=== PATIENT | male | born 1960 | race Caucasian/White ===

== ENCOUNTER 2018-01-12 16:54 | Inpatient (IN) | payer OTHER ==
[~2018-01-12] VITALS: Ht 180.3 cm; Wt 120.7 kg
[~2018-01-12 16:54] MED LIST: RT-ALBUTEROL/IPRATROPIUM 3 ML (DUONEB) VIAL INH PRN
[2018-01-12] MEDS ORDERED: diphenhydrAMINE 25 MG TAB (BENADRYL) PO ONE (20:13)
[2018-01-12] MEDS: guaiFENesin (MUCINEX) 600 MG TAB PO SCH (20:16)
[2018-01-12] MEDS: diphenhydrAMINE 25 MG TAB (BENADRYL) PO PRN (20:16)
[2018-01-12] MEDS ORDERED: ATORVASTATIN 40 MG (LIPITOR) TABLET PO SCH (21:00)
[2018-01-12] MEDS ORDERED: ATORVASTATIN 80 MG (LIPITOR) TABLET PO SCH (21:00)
--- NOTE | 2018-01-12 21:11 | HISTORY AND PHYSICAL ---
DATE OF SERVICE: 01/12/2018 CHIEF COMPLAINT: Difficulty with walking. HISTORY OF PRESENT ILLNESS: The patient is a 58-year-old male who has been independent and living in [place], [place], working at a [employer], who had severe hypertensive crisis and was admitted to [facility]. Imaging studies revealed an acute ischemic stroke involving the left occipital lobe resulting in decreased coordination on the right and impaired vision on the right. The patient was also noted to have elevated glucometer readings, but hemoglobin A1c was approximately 6.7. The patient was also noted to have a small sterling aneurysm, which the patient will follow up as well as non-small cell lung cancer, will follow up with the medical oncology on an outpatient basis. Also, a right renal mass, which could not be further evaluated as he did not tolerate the MRI due to claustrophobia. He will have a followup of this with an open MRI on an outpatient basis. He is on a Nicoderm patch for smoking cessation. Currently, he has fallen at the referring facility with no apparent injury slid off the toilet. He requires assistance for his ADLs and mobility skills. He complains of a pruritic rash over the abdomen.hE IS MIN ASSIST FOR GAIT AND TRANSFERS WITH A WALKER. hE REQUIRES ASSITANCE FOR eATING AND MAX ASSIST FOR LOWER BODY DRESSING AND BATHING PAST MEDICAL HISTORY: Hypertension, tobaccoism. PAST SURGICAL HISTORY: Denies any prior joint or spinal surgery. ALLERGIES: LEVAQUIN, REPORTS A RASH WITH IV LEVAQUIN, WHICH MAY HAVE BEEN RELATED TO THE IV SITE HE IS UNCERTAIN. FAMILY HISTORY: Colon cancer in a brother. SOCIAL HISTORY: He presents to IRU with his girlfriend. He has several children spread to the region. REVIEW OF SYSTEMS: Significant for falls, decreased coordination vision on the right, pruritic rash over the abdomen. MEDICATIONS: ASA 81 mg p.o. daily, Lipitor 80 mg p.o. at bedtime, Robitussin 10 mL p.o. q.4 hours as needed for cough, hydrochlorothiazide 12.5 mg p.o. daily, DuoNeb treatments q.6 hours p.r.n. shortness of breath, losartan 100 mg p.o. daily, nicotine patch 21 mg daily. PHYSICAL EXAMINATION: GENERAL: Significant for a fairly large man, appearing his stated age, alert and oriented, in no acute distress. His BMI is 39.46. He is 275 pounds, 5 feet 10 inches. He does complain of some constipation and his abdomen is mildly distended. VITAL SIGNS: Blood pressure 144/78, pulse is 71. He is afebrile. Respirations 16. HEENT: He has decreased vision to the right. Speech, he has some word finding difficulty. No dysarthria noted. No oral lesion is noted. Hearing appears intact. NECK: Supple without mass. HEART: Regular rhythm. LUNGS: Clear. ABDOMEN: Soft, nontender. Bowel sounds present. The abdomen is somewhat distended. EXTREMITIES: No lower leg edema, no calf tenderness. MUSCULOSKELETAL: The patient has functional active range of motion in all 4 extremities. NEUROLOGIC: Strength is 4+/5lEFT uPPER LIMB rt uPPER LIMB 3+/5. Sensation is DIMINISHED to touchON THE RIGHT. He has some word finding difficulty. He has right-sided visual loss. He has decreased coordination on the right and impaired standing balance.sTRENGTH rT hIPFLEX 3+/ 5 lEFT LOWER lIMB 4/5. IMPRESSION: 1. Left occipital stroke with resulting visual field deficit on the right as well as discoordination and history of recent falls. 2. Non-small cell lung cancer. To have followup on an outpatient basis. 2. Sterling aneurysm. To have followup as an outpatient. 3. Renal mass on the right. Will followup on an outpatient basis. 4. Tobaccoism, currently abstaining. 5. Hypertension, controlled with medication. 6. Constipation. Adjust medications as needed for constipation. 7. Abdominal rash. Treat with Benadryl and topical cream as necessary. PLAN: The patient will have a comprehensive program of inpatient rehabilitation WITH goal of maximizing level of functional INdependence prior to discharge home with his girlfriend. The patient will have PT, OT 90 minutes per day each discipline, 5 days a week for 2 weeks with the above goals in mind. Please see post-admission physician evaluation, which is separate document for details of plan of care. Speech therapy do cognitive speech and swallow assessment and treat as indicated. Rehabilitation nursing assist with bowel, bladder, skin care, medication administration. business services sales agent assist with discharge planning, community reentry. Monitor blood pressure and adjust medications as needed.cHECK aDMISSION LABS. ESTIMATED LENGTH OF STAY: THREE weeks. PROGNOSIS: Rehab prognosis appears good for goal of discharging home with his significant other AT THE Modified independent to supervision LEVEL for ADLs and mobility skills. DIET: Regular. CODE STATUS: Full code. Job ID: [id number] DocumentID: [id number] Dictated Date: 01/12/2018 20:23:43 Regulatory Scientist Date: 01/12/2018 21:10:21 Dictated By: SYDNEE GUAN MD MTDD
[2018-01-13 05:07] VITALS: BP 175/85
--- NOTE | 2018-01-13 08:16 | Physical Therapy Evaluation ---
PT Evaluation-General Medical Diagnosis Admission Date Jan 12, 2018 at 19:48 Medical Diagnosis: CVA Onset Date: Jan 04, 2018 Therapy Diagnosis Therapy Diagnosis: difficulty walking Height/Weight Height (Feet): 5 Height (Inches): 11.00 Weight (Pounds): 263 Weight (Ounces): 4.8 Precautions Precautions/Isolations: Fall Prevention, Standard Precautions Weight Bear Status Right Lower Extremity: Right Full Weight Bearing Left Lower Extremity: Left Full Weight Bearing Referral Physician: Raji Reason for Referral: Evaluation/Treatment Social History Home: Single Level Current Living Status: Spouse Entry Into Home: Stairs Without Railing PT Steps Into Home: 2 PT Steps Inside Home: 0 Prior/Core FIM Prior Level of Function Functional [place] Measure 0=Not Assessed/NA 4=Minimal Assistance 1=Total Assistance 5=Supervision or Setup 2=Maximal Assistance 6=Modified [place] 3=Moderate Assistance 7=Complete IndependenceIRFPAI Quality Coding Scale 6 Independent with activity with or without an assistive device 5 Patient requires set up or clean up by helper. Patient completes activity by themselves 4 Supervision or touching assist (CGA). [place] provide cues , steadying assist 3 The helper provides less than half the effort to complete the activity 2 The helper provides more than half the effort to complete the activity 1 Dependent. The helper does all the effort to complete an activity 7 Patient refused to complete or attempt activity 9 The patient did not perform the activity before the current illness or injury 88 Not attempted due to Medical conditions or safety concerns Bed Mobility: 7 Transfers (B,C,W/C) (FIM): 7 Gait: 7 Stairs: 7 PT Evaluation-Current Subjective States that he is doing okay today and ready to start therapy. Pain Numeric Pain Scale: 0-No Pain Objective Patient Orientation: Person, Place, Time ROM/Strength ROM Upper Extremities WFL ROM Lower Extremities WFL Strenght Lower Extremities 5/5 on (L) ; 3+/5 throughout (R) hip, 4/5 (R) knee and ankle. Patient has difficulty with dorsiflexion if knee is extended Neuromuscular (Tone, Coordination, Reflexes) poor coordination in (R) UE and LE Sensory Vision: Neglect Right Hearing: Functional Hand Dominance: Right Sensation Right Upper Extremit: Impaired Sensation Left Upper Extremity: Intact Sensation Right Lower Extremit: Impaired Sensation Left Lower Extremity: Intact Transfers Functional [place] Measure 0=Not Assessed/NA 4=Minimal Assistance 1=Total Assistance 5=Supervision or Setup 2=Maximal Assistance 6=Modified [place] 3=Moderate Assistance 7=Complete IndependenceIRFPAI Quality Coding Scale 6 Independent with activity with or without an assistive device 5 Patient requires set up or clean up by helper. Patient completes activity by themselves 4 Supervision or touching assist (CGA). [place] provide cues , steadying assist 3 The helper provides less than half the effort to complete the activity 2 The helper provides more than half the effort to complete the activity 1 Dependent. The helper does all the effort to complete an activity 7 Patient refused to complete or attempt activity 9 The patient did not perform the activity before the current illness or injury 88 Not attempted due to Medical conditions or safety concerns Transfers (B, C, W/C) (FIM): 4 Scootin Rollin Roll Left to Right (QC): 4 Supine to/from Sit: 4 Sit to/from Stand: 4 Sit to Lying (QC): 4 Lying to Sitting/Side of Bed(Q: 5 Sit to Stand (QC): 4 Chair/Cnk-cx-Jusib Xfer(QC): 4 Car Transfer (QC): 88 Gait Does the Patient Walk?: Yes Mode of Locomotion: Both Anticipated Mode of Locomotion: Walk Distance (FIM): 1=up to 49 ft Walk 10 feet (QC): 4 Walk 50 ft with 2 Turns(QC): 88 Walk 150 ft (QC): 88 Walking 10ft/uneven surface-QC: 88 Distance: 30' Gait Level of Assist: 4 Gait Persons Needed: 1 Gait Assistive Device: Handheld Assist Wheelchair Training Does the Pt Use a Wheelchair?: No Wheelchair (FIM): 2 Wheelchair Distance (FIM): 1=up to 49 ft Distance: 5' Wheelchair Level of Assist: 4 Wheel 50 ft with 2 turns (QC): 1 Wheel 150 ft (QC): 1 Stairs Stairs (FIM): 3 #of Steps: 4 Level of Assist: 3 1 Step (curb) (QC): 3 4 Steps (QC): 3 12 Steps (QC): 88 Balance Sitting Static: Good Sitting Dynamic: Good Standing Static: Poor Standing Dynamic: Poor Picking up an Object (QC): 2 Assessment/Needs 58 y.o. male s/p CVA. The patient has a problem list of decreased strength, coordination limitations, gait limitations, balance limitations, and functional mobility which shows a need for skilled therapy to return to PLOF. Rehab Potential: Good PT Short Term Goals Short Term Goals Time Frame: Jan 20, 2018 Transfers (B,C,W/C) (FIM): 5 Gait (FIM): 5 Distance (FIM): 9=529-19 ft Gait Distance Comment: 100' Gait Level of Assist: 5 Gait Assistive Device: Handheld Assist PT Chcf Goals Rack Worker Goals PT Chcf Goals Time Frame: Feb 03, 2018 Transfers (B,C,W/C) (FIM): 7 Sit to Lying (QC): 6 Lying-Sitting on Side/Bed(QC): 6 Sit to Stand (QC): 6 Rollin Roll Left to Right (QC): 6 Chair/Jos-co-Yisar Xfer(QC): 6 Car Transfer (QC): 6 Does the Patient Walk: Yes Gait (FIM): 6 Gait distance (FIM): 3=150 ft Distance: 500' Walk 10 feet (QC): 6 Walk 10ft-Uneven Surface(QC): 5 Walk 50ft with 2 Turns (QC): 6 Walk 150 ft (QC): 6 Gait Level of Assist: 6 Gait Assistive Device: None, Cane Small Base Quad Stairs (FIM): 7 # of Steps: 12 1 Step (curb) (QC): 6 4 Steps (QC): 6 12 Steps (QC): 6 Stairs Level Of Assist: 7 Picking up an Object (QC): 6 PT Plan Problem List Problem List: Activity Tolerance, Functional Strength, Safety, Balance, Gait, Transfer, Bed Mobility Treatment/Plan Treatment Plan: Continue Plan of Care Treatment Plan: Bed Mobility, Functional Activity Araceli, Functional Strength, Group Therapy, Gait, Safety, Therapeutic Exercise, Transfers Treatment Duration: Feb 03, 2018 Frequency: 6 times per week Estimated Hrs Per Day: 1.5 hours per day Patient and/or Family Agrees t: Yes Safety Risks/Education Patient Education: Gait Training, Transfer Techniques, Steps, Safety Issues Teaching Recipient: Patient Teaching Methods: Discussion Discharge Recommendations Plan home Therapy D/C Recommendations: Physical Therapy Outpatient Time/GCodes Time In: 0750 Time Out: 0920 Total Billed Treatment Time: 90 Total Billed Treatment 1, Evaluation low complexity x 30', 15' ther-ex, 45' FA G Codes Necessary: SHAYNA Poon PT Jan 13, 2018 08:15
[2018-01-13] MEDS: ASPIRIN E.C. 81 MG (ECOTRIN) TAB PO SCH (08:50)
[2018-01-13] MEDS: guaiFENesin (MUCINEX) 600 MG TAB PO SCH ×2 (08:50→21:03)
[2018-01-13] MEDS: NICOTINE 21 MG (NICODERM) PATCH TD SCH (08:50)
[2018-01-13] MEDS: NICOTINE PATCH REMOVAL TP SCH (08:56)
[2018-01-13] MEDS ORDERED: HYDROCHLOROTHIAZIDE 25 MG (HCTZ) TAB PO SCH (09:00)
[2018-01-13] MEDS ORDERED: LOSARTAN 100 MG (COZAAR) TABLET PO SCH (09:00)
--- NOTE | 2018-01-13 09:17 | Occupational Therapy Eval ---
OT Evaluation-General/PLF Medical Diagnosis Admission Date Jan 12, 2018 at 19:48 Medical Diagnosis: Occluded left RESIDENT MANAGER, CVA Onset Date: Jan 07, 2018 Therapy Diagnosis Therapy Diagnosis: Weakness, Decreased coordination, Unsteadiness Height/Weight Height (Feet): 5 Height (Inches): 11.00 Weight (Pounds): 263 Weight (Ounces): 4.8 Precautions Precautions/Isolations: Fall Prevention, Standard Precautions Comments Pt presents with significantly decreased coordination and decreased lack of awareness of RUE, resulting in the risk for injury to RUE due to deficits in positioning. Nursing staff, pt, and caregivers need education regarding safety interventions and correct positioning to RUE to avoid injury to affected arm. Weight Bear Status Weight Bearing Restriction: Weight Bearing/Tolerated Referral Referral Reason: Activity Tolerance, Self Care, Evaluation/Treatment, Strengthening/ROM Medical History Pertinent Medical History: CVA, HTN, Smoking Additional Medical History Pt presented to the ED secondary to headache and blurred vision. 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 [place], MRI scans revealed a left occipital lobe infact which was ischemic, and covered the distribution of the left RESIDENT MANAGER. Social History Home: Single Level Current Living Status: Spouse Entry Into Home: Stairs With Railing Steps Into Home: 2 ADL-Prior Level of Function Functional [place] Measure 0=Not Assessed/NA 4=Minimal Assistance 1=Total Assistance 5=Supervision or Setup 2=Maximal Assistance 6=Modified [place] 3=Moderate Assistance 7=Complete [place] ADL PLOF Comments Pt was totally independent with all ADLs prior to recent CVA. Pt was still working and active, independent with all IADLs as well. Prior to CVA, the pt did not require use of AE in his home. Self Care Self Care: (Code the patient's need for assistance with bathing, dressing, using the toilet, or eating prior to the current illness, exacerbation, or injury.) Functional Cognition Functional Cognition: (Code the patient's need for assistance with planning regular tasks, such as shopping or remembering to take medicaiton prior to the current illness, exacerbation, or injury.) Drive Self: Yes OT Current Status Subjective Pt does not complain of pain, however he does report feeling very fatigued. Mental Status/Objective Patient Orientation: Normal For Age Current Glasses/Contacts: Yes Hand Dominance: Right Upper Extremity ROM BUE ROM WNL, however movements on Upper Extremity Coordination Significantly impaired RUE coordination. This therapist attempted to assess with the 9 hole peg test, however pt was unable to complete the task at this time. Upper Extremity Sensation Decreased sensation of the RUE C2-T1. Upper Extremity Strength 3+/5 RUE strength grossly, 4+/5 LUE strength grossly Assessment of grape crusher strength yields RUE strength of 63#, and LUE strength of 52# Assessment of wells pinch strength yields RUE strength of 9#, and LUE strength of 10#. Pt presents with visual field deficits secondary to homonymous hemianopsia with vertical field limitations of the right side. ADL-Treatment Functional [place] Measure 0=Not Assessed/NA 4=Minimal Assistance 1=Total Assistance 5=Supervision or Setup 2=Maximal Assistance 6=Modified [place] 3=Moderate Assistance 7=Complete IndependenceIRFPAI Quality Coding Scale 6 Independent with activity with or without an assistive device 5 Patient requires set up or clean up by helper. Patient completes activity by themselves 4 Supervision or touching assist (CGA). [place] provide cues , steadying assist 3 The helper provides less than half the effort to complete the activity 2 The helper provides more than half the effort to complete the activity 1 Dependent. The helper does all the effort to complete an activity 7 Patient refused to complete or attempt activity 9 The patient did not perform the activity before the current illness or injury 88 Not attempted due to Medical conditions or safety concerns Eating (FIM): 3 (Pt with decreased functional ability to manipulate utensils. Will benefit from built up utensils. Tremors) Eating (QC): 3 Grooming (FIM): 3 (Difficulty managing small items with right hand, tremors through non-dominant left hand.) Oral Hygiene (QC): 3 Bathing (FIM): 2 Shower/Bathe Self (QC): 2 Upper Body Dressing (FIM): 4 (Pt requires verbal cues for compensatory techniques.) Upper Body Dressing (QC): 3 Lower Body Dressing (FIM): 2 (Pt with difficulty managing pants over hips and threading pant legs.) Lower Body Dressing (QC): 2 On/Off Footwear (QC): 2 Toileting (FIM): 2 (Impairment in his ability to manage pants and performing hygiene.) Toileting Hygiene (QC): 2 Transfers (B, C, W/C) (FIM): 4 Toilet/Commode Transfer (FIM): 4 Toilet Transfer (QC): 3 Tub Transfer (FIM): 4 (Cont verbal cues for technique) Shower Transfer (FIM): 4 Pt requires continuous verbal cues and physical assistance for the completion of all self care tasks. Other Treatments Assessments completed for pt's unsupported static/dynamic sitting balance, with pt requiring steadying assist to maintain balance while performing ADLs. Rating at Fair-. Pt required Adela with verbal cues for all functional transfers with hand held assist. Pt presented with Fair- dynamic standing balance, and experienced buckling of his RLE upon ambulation. Education OT Patient Education: Correct positioning, Energy conservation, Exercise program, Modified ADL techniques, Purpose of tx/functional activities, Reviewed precautions, Rehab process, Safety issues (Pt educated on importance of awareness of RUE to avoid injury. ), Transfer techniques Teaching Recipient: Patient Teaching Methods: Demonstration, Discussion Response to Teaching: Verbalize Understanding, Return Demonstration, Reinforcement Needed OT Short Term Goals Short Term Goals Time Frame: Jan 27, 2018 Eating(FIM): 5 Grooming(FIM): 5 Bathing(FIM): 4 Upper Body Dressing(FIM): 5 Lower Body Dressing(FIM): 4 Toileting(FIM): 4 Transfers (B,C,W/C) (FIM): 5 Toilet/Commode Transfer(FIM): 5 Tub Transfer(FIM): 5 Shower Transfer(FIM): 5 Additional Short Term Goals: 1-Demonstrate ADL Tasks, 2-Verbalize Understanding , 3-ImproveStrength/Araceli 1=Demonstrate adherence to instructed precautions during ADL tasks. 2=Patient will verbalize/demonstrate understanding of assistive devices/ modifications for ADL. 3=Patient will improve strength/tolerance for activity to enable patient to perform ADL's. OT Plant Changer Goals Plant Changer Goals Time Frame: Feb 10, 2018 Eating (FIM): 7 Eating (QC): 6 Groomin Oral Hygiene (QC): 6 Bathing(FIM): 6 Shower/Bathe Self (QC): 6 Upper Body Dressing(FIM): 7 Upper Body Dressing (QC): 6 Lower Body Dressing(FIM): 6 Lower Body Dressing (QC): 6 On/Off Footwear (QC): 6 Toileting(FIM): 6 Toileting Hygiene (QC): 6 Transfers (B,C,W/C) (FIM): 6 Toilet/Commode Transfer(FIM): 6 Toilet/Commode Transfer (QC): 6 Tub Transfer(FIM): 6 Shower Transfer(FIM): 6 Additional Goals: 1-Demonstrate ADL Tasks, 2-Verbalize Understanding, 3- ImproveStrength/Araceli 1=Demonstrate adherence to instructed precautions during ADL tasks. 2=Patient will verbalize/demonstrate understanding of assistive devices/ modifications for ADL. 3=Patient will improve strength/tolerance for activity to enable patient to perform ADL's. OT Education/Plan Problem List/Assessment Assessment: Decreased Activ Tolerance, Decreased Safety Aware, Decreased UE Strength, Impaired Coordination, Impaired Funct Balance, Impaired I ADL's, Impaired Self-Care Skills, Visual-Perceptual Deficit Discharge Recommendations Plan/Recommendations: Continue POC Therapy D/C Recommendations: Occupational Therapy Home Care, Occupational Therapy Outpatient Equpiment Recommendations-D/C: Extended Bath Bench, Lead Software Test Engineer, Sock Aide Patient/Family Goals Pt would like to return home at [facility]. Treatment Plan/Plan of Care Patient would benefit from OT for education, treatment and training to promote independence in ADL's, mobility, safety and/or upper extremity function for ADL' s. Plan of Care: ADL Retraining, Functional Mobility, Group Exercise/Act as Ind, UE Funct Exercise/Act, UE Neuromus Re-Ed/Coord, Visual/Perceptual Retrain Treatment Duration: Feb 24, 2018 Frequency: At least 5 of 7 days/Wk (IRF) Estimated Hrs Per Day: 1.5 hours per day Agreement: Yes Rehab Potential: Good Time/GCodes Start Time: 08:00 Stop Time: 09:30 Total Time Billed (hr/min): 90 Billed Treatment Time 1EMV, ADL2, FA3, Co-treatment with PT due to pt's level of fatigue and significantly decreased activity tolerance secondary to recent CVA. RHEA BASS OT Jan 13, 2018 09:17
[2018-01-13] MEDS: diphenhydrAMINE 25 MG TAB (BENADRYL) PO PRN (10:26)
[2018-01-13] MEDS ORDERED: FLU QUADRIvalent (5+ YOA) 2018-2019 (AFLURIA) 0.5 ML IM ONE (11:45)
[2018-01-13] MEDS ORDERED: hydrALAZINE (APRESOLINE) 25 MG TAB PO PRN (12:00)
[2018-01-13] MEDS ORDERED: PATIENT MAY USE OWN MED,SINGLE MED PO SCH (12:00)
--- NOTE | 2018-01-13 12:04 | Consultation-Hospitalist ---
HPI History of Present Illness: HPI/Chief Complaint CC: Medical management following CVA and diagnosis of small cell lung cancer HPI: This is a 58-year-old white male with no known prior medical history since he never saw doctor who presents to inpatient rehabilitation following a very debilitating stroke due to ischemic process in the left occipital lobe accompanied by hypertensive crisis admitted to [facility] and was then diagnosed with small cell lung cancer with metastasis and a renal mass of uncertain etiology. He arrived last night and his blood sugars have been running 200 without prior history of diabetes until diagnosed recently of 6.7 hemoglobin A1c per [facility] records. He is having a rash and that has occurred just in the last couple of days that has worsened and he has been on the Nicoderm patch for the past one week due to smoking cessation requirement. He hasn't had a bowel movement for for 3 days so will initiate bowel regimen. I suspect Nicoderm patch as the cause of the rash after a review all of his home medications he was discharged on from [facility] so we'll hold that among other medications until rash resolves and initiate insulin regimen along with long-acting insulin regimen along with IV steroids. Source: patient, family, RN/MD Date Seen 01/13/18 Attending Physician Hieu Alegria MD PCP No,Local Physician Referring Physician Date of Admission Jan 12, 2018 at 19:48 Home Medications & Allergies Home Medications Reviewed patient Home Medication Reconciliation performed by pharmacy medication reconciliations dispensary technician and/or nursing. Patients Allergies have been reviewed. Allergies Allergies Coded Allergies levofloxacin (Verified Allergy, Intermediate, 01/12/18) morphine (Verified Allergy, Unknown, NAUSEA, 01/12/18) Past Chczjfy-Ghtxxr-Ejhoex Hx Past Med/Social Hx: Reviewed Nursing Past Med/Soc Hx, Reviewed and Corrections made Patient Social History Marrital Status: cohabiting Employed/Student: employed ([employer] 2 yrs in [place], [place]) Alcohol Use: Denies Use Recreational Drug Use: No Smoking Status: Current Everyday Smoker Type Used: Cigarettes Physical Abuse Screen: No Sexual Abuse: No Recent Foreign Travel: No Contact w/other who traveled: No Recent Hopitalizations: Yes (cva) Recent Infectious Disease Expo: No Seasonal Allergies Seasonal Allergies: No Past Medical History Cardiac: Hypertension Neurological: Stroke (01/2018) Endocrine: Diabetes, Insulin dep Cancer: Lung Did You Recieve Any Treatments: No History of Blood Disorders: No Family History FH: lung cancer Diabetes Review of Systems Constitutional: see HPI, malaise, weakness EENTM: no symptoms reported Respiratory: no symptoms reported Cardiovascular: no symptoms reported Gastrointestinal: constipation Genitourinary: no symptoms reported Musculoskeletal: no symptoms reported Skin: see HPI, rash Physical Exam Physical Exam Vital Signs Vital Signs - First Documented 01/12/18 01/13/18 20:12 05:07 Temp 98.2 Pulse 101 Resp 16 B/P (MAP) 175/85 (115) Pulse Ox 94 O2 Delivery Room Air Capillary Refill : Height, Weight, BMI Height: 5'11.00" Weight: 263lbs. 4.8oz. [id number]; 36.7 BMI Method: General Appearance: No Apparent Distress, WD/WN, Chronically ill, Obese, Other (drowsy from Benadryl) Eyes: Bilateral Eye Normal Inspection, Bilateral Eye PERRL HEENT: PERRL/EOMI, Normal ENT Inspection, Pharynx Normal Neck: Full Range of Motion, Normal Inspection, Non Tender, Supple, Carotid Bruit Respiratory: Chest Non Tender, Lungs Clear, Normal Breath Sounds, No Accessory Muscle Use, No Respiratory Distress Cardiovascular: Regular Rate, Rhythm, No Edema, No Gallop, No JVD, No Murmur, Normal Peripheral Pulses Gastrointestinal: Normal Bowel Sounds, No Organomegaly, No Pulsatile Mass, Non Tender, Soft Back: Normal Inspection, No CVA Tenderness, No Vertebral Tenderness Extremity: Normal Capillary Refill, Normal Inspection, Normal Range of Motion, Non Tender, No Calf Tenderness, No Pedal Edema Neurologic/Psychiatric: Alert, Oriented x3, No Motor/Sensory Deficits, Normal Mood/Affect, Motor Weakness (right arm) Skin: Normal Color, Warm/Dry, Rash (urticaria chest and arms) Lymphatic: No Adenopathy Results Results/Procedures Labs Patient resulted labs reviewed. Assessment/Plan Assessment and Plan Assess & Plan/Chief Complaint Assessment: Subacute left occipital lobe ischemic stroke Status post hypertensive crisis New onset diabetes mellitus [id number] with 200 blood sugar today Acute urticaria suspect Nicoderm or other new medication requiring IV steroids and antihistamines Constipation Hyperlipidemia Smoker Visual loss from stroke Plan: Low-dose IM steroids Benadryl Hold nicotine patch along with other meds in case those of the source of the urticaria BM treatment HGA1C SSI B Levemir Diagnosis/Problems Diagnosis/Problems (1) Cerebrovascular accident (CVA) Status: Acute Qualifiers: CVA mechanism: unspecified Qualified Codes: I63.9 - Cerebral infarction, unspecified (2) Urticaria due to drug allergy Status: Acute (3) Small cell lung cancer Status: Acute (4) Renal mass of unknown nature Status: Acute (5) Smoker Status: Chronic (6) Hypertension Status: Chronic Qualifiers: Hypertension type: essential hypertension Qualified Codes: I10 - Essential (primary) hypertension (7) Hyperlipemia Status: Chronic Qualifiers: Hyperlipidemia type: mixed hyperlipidemia Qualified Codes: E78.2 - Mixed hyperlipidemia (8) Constipation Status: Acute Qualifiers: Constipation type: slow transit constipation Qualified Codes: K59.01 - Slow transit constipation (9) Peripheral vision loss Status: Chronic Qualifiers: Laterality: unspecified laterality Qualified Codes: H53.459 - Other localized visual field defect, unspecified eye Clinical Quality Measures DVT/VTE Risk/Contraindication: Risk Factor Score Per Nursin RFS Level Per Nursing on Admit: 4+=Very High ZENA MCCABE DO Jan 13, 2018 12:04
[2018-01-13] MEDS ORDERED: amLODIPine 5 MG (NORVASC) TAB PO NR (12:06)
[2018-01-13] MEDS ORDERED: inSUlin DETERMIR 1 UNIT/0.01 ML (LEVEMIR) CHARGE PER UNIT SQ NR (12:07)
[2018-01-13] MEDS ORDERED: methylPREDNISolone 40 MG/ML (Solu-MEDROL) VIAL IM NR (12:09)
[2018-01-13] MEDS: SENNA W/DOCUSATE (SENOKOT S) TABLET PO SCH ×2 (12:31→21:03)
[2018-01-13] MEDS: DOCUSATE SODIUM 100 MG (COLACE) CAP PO SCH ×2 (12:31→21:03)
[2018-01-13] MEDS: POLYETHYLENE GLYCOL 17 GM (MIRALAX) PACK PO SCH ×2 (12:32→21:00)
[2018-01-13] MEDS: ALPRAZolam 0.25 MG (XANAX) TAB PO PRN (12:43)
[2018-01-13 12:45] VITALS: BP 132/66
[2018-01-13 13:35] LABS: BASOPHILS % (AUTO) 0 % (0-10); EOSINOPHILS # (AUTO) 0.2 10^3/uL (0.0-0.3); EOSINOPHILS % (AUTO) 1 % (0-10); HEMATOCRIT 46 % (40-54); HEMOGLOBIN 15.8 G/DL (13.3-17.7); LYMPHOCYTES # (AUTO) 1.3 X 10^3 (1.0-4.0); LYMPHOCYTES % (AUTO) 8 % (12-44); MEAN CORPUSCULAR HEMOGLOBIN 32 PG (25-34); MEAN CORPUSCULAR HGB CONC 34 G/DL (32-36); MEAN CORPUSCULAR VOLUME 94 FL (80-99); MEAN PLATELET VOLUME 10.8 FL (7.4-10.4); MONOCYTES # (AUTO) 1.9 X 10^3 (0.0-1.0); MONOCYTES % (AUTO) 11 % (0-12); NEUTROPHILS # (AUTO) 13.3 X 10^3 (1.8-7.8); NEUTROPHILS % (AUTO) 80 % (42-75); PLATELET COUNT 264 10^3/uL (130-400); RED BLOOD COUNT 4.93 10^6/uL (4.35-5.85); RED CELL DISTRIBUTION WIDTH 13.5 % (10.0-14.5); WHITE BLOOD COUNT 16.7 10^3/uL (4.3-11.0)
[2018-01-13 13:56] LABS: ALANINE AMINOTRANSFERASE 22 U/L (0-55); ALBUMIN 3.8 GM/DL (3.2-4.5); ALKALINE PHOSPHATASE 104 U/L (40-136); BILIRUBIN,TOTAL 0.4 MG/DL (0.1-1.0); BUN/CREATININE RATIO 30; CALCIUM 10.2 MG/DL (8.5-10.1); CARBON DIOXIDE 21 MMOL/L (21-32); CHLORIDE 99 MMOL/L (98-107); CREATININE SERUM 1.05 MG/DL (0.60-1.30); GFR ESTIMATED > 60; GLUCOSE 269 MG/DL (70-105); POTASSIUM 3.8 MMOL/L (3.6-5.0); SODIUM 135 MMOL/L (135-145); TOTAL PROTEIN 6.7 GM/DL (6.4-8.2)
[2018-01-13 14:15] LABS: BAND NEUTROPHILS 0 %; BASOPHILS % (MANUAL) 0 %; EOSINOPHILS % (MANUAL) 1 %; LYMPHOCYTES % (MANUAL) 6 %; MONOCYTES % (MANUAL) 7 %; NEUTROPHILS % (MANUAL) 86 %; RBC MORPH NORMAL
[2018-01-13 16:02] VITALS: BP 130/69
[2018-01-13] MEDS: inSUlin ASPART (NovoLOG) 1 UNIT/0.01 ML (CHARGE PER UNIT) SC SCH ×2 (16:23→21:03)
--- NOTE | 2018-01-13 19:09 | PM&R Post Admission Assessment ---
Post Admission Physician Asses Date seen by provider: Jan 12, 2018 Time seen by provider: 20:00 The preadmission screen agrees with the post admission assessment that the patient is a good candidate for inpatient rehabilitation. The patient will have a comprehensive program of inpatient rehabilitation with a goal of maximizing level of functional independence prior to discharge home with SO. The patient will have PT/OT ninety minutes per day, each discipline, five days a weekfor 2 weeks for gait, strengthening, conditioning, balance, ADLs , any patient/family/caregiver training as necessary. Speech therapy to do cognitive assessment and treat as indicated. Rehabilitation nursing to assist with bowel, bladder, skin, wound care, medication administration, pain management. Food Service Director to assist with discharge planning, community reentry. SCD's for DVT prophylaxis. He appears to be well motivated to participate in three hours of therapy a day. He should be able to tolerate three hours of therapy a day from a medical standpoint. He should benefit from the three hours of therapy a day. He has a reasonable discharge plan, reasonable discharge rehabilitation goals and a supportive family. He has various comorbidities that need to be closely monitored with medications and treatments adjusted on a daily basis as needed. These include: HTN tOBaccoism Barriers to discharge for this patient who had been independent prior to this are for him to be modified independent to supervision for ADLs and mobility skills prior to discharge home with SO, so as to lessen the burden of the caregivers. Risks for this patient include: 1. Fall 2. Fracture 3. DVT 4. Pulmonary embolism 5. Recurrent stroke 6. Skin breakdown 7. Contractures 8. Poorly controlled pain 9. Urinary retention 10. UTI 11. Respiratory infection 12. Aspiration 13. POORLY CONTROLLED htn Estimated Length of Stay: 18 days Prognosis: Rehab prognosis appears good for goal of discharge home with so modified independent to supervision for ADLs and mobility skills. [facility] CODE 01.2 eTIOLOGIC dx lARGE LEFT OCCIPITAL INFARCT OF THE bladder trimmer SECONDARY TO AN OCCLUDED LEFT bladder trimmer Date Identified: Jan 12, 2018 Time Identified: 20:00 Action Plan to Resolve CSMI: tRANSFER MEDS REVIEWED General: Alert, Oriented X3, No Acute Distress HEENT: Mucous Memb Moist/[place], Other (RT SIDED VISUAL IMPAIRMENT) Neck: Supple, No JVD Heart: Regular Rate Abdomen: Normal Bowel Sounds, Soft, No Tenderness, Other ( DISTENDED) Extremities: No Edema Skin: Other (SMALL RASH OVER LEFT MID ABDOMEN) Neuro: Other (rT HIP FLEX 3+/5 rue 3+/5 lEFT ue 4+/5 lle 4/5) Psych/Mental Status: Mental Status NL SYDNEE GUAN MD Jan 13, 2018 19:08
[2018-01-13] MEDS: BISACODYL 10 MG SUPP (DULCOLAX) PR SCH (21:00)
[2018-01-13] MEDS: inSUlin DETERMIR 1 UNIT/0.01 ML (LEVEMIR) CHARGE PER UNIT SQ SCH (21:02)
[2018-01-14 06:04] VITALS: BP 133/70
[2018-01-14] MEDS: inSUlin ASPART (NovoLOG) 1 UNIT/0.01 ML (CHARGE PER UNIT) SC SCH ×4 (06:36→21:13)
[2018-01-14] MEDS: SENNA W/DOCUSATE (SENOKOT S) TABLET PO SCH ×2 (09:48→21:23)
[2018-01-14] MEDS: guaiFENesin (MUCINEX) 600 MG TAB PO SCH ×2 (09:48→21:12)
[2018-01-14] MEDS: DOCUSATE SODIUM 100 MG (COLACE) CAP PO SCH ×2 (09:48→21:23)
[2018-01-14] MEDS: amLODIPine 5 MG (NORVASC) TAB PO SCH (09:48)
[2018-01-14] MEDS: ASPIRIN E.C. 81 MG (ECOTRIN) TAB PO SCH (09:49)
[2018-01-14] MEDS: NICOTINE PATCH REMOVAL TP SCH (09:49)
[2018-01-14] MEDS: BISACODYL 10 MG SUPP (DULCOLAX) PR SCH ×2 (09:49→21:24)
[2018-01-14] MEDS: POLYETHYLENE GLYCOL 17 GM (MIRALAX) PACK PO SCH ×2 (09:50→21:23)
--- NOTE | 2018-01-14 11:32 | Progress Note-Hospitalist ---
Subjective HPI/CC On Admission Date Seen by Provider: Jan 14, 2018 Time Seen by Provider: 11:15 CC: Medical management following CVA and diagnosis of small cell lung cancer HPI: This is a 58-year-old white male with no known prior medical history since he never saw doctor who presents to inpatient rehabilitation following a very debilitating stroke due to ischemic process in the left occipital lobe accompanied by hypertensive crisis admitted to [facility] and was then diagnosed with small cell lung cancer with metastasis and a renal mass of uncertain etiology. He arrived last night and his blood sugars have been running 200 without prior history of diabetes until diagnosed recently of 6.7 hemoglobin A1c per [facility] records. He is having a rash and that has occurred just in the last couple of days that has worsened and he has been on the Nicoderm patch for the past one week due to smoking cessation requirement. He hasn't had a bowel movement for for 3 days so will initiate bowel regimen. I suspect Nicoderm patch as the cause of the rash after a review all of his home medications he was discharged on from [facility] so we'll hold that among other medications until rash resolves and initiate insulin regimen along with long-acting insulin regimen along with IV steroids. Subjective/Events-last exam Sleeping on left side on C Pap Rash resolved we'll place Nicoderm on allergy Overall patient much improved Suppository refused so constipation not resolved yet so counseled the need to start that Checked meds and labs Review of Systems General: Fatigue Gastrointestinal: Constipation Objective Exam Vital Signs Vital Signs Date Time Temp Pulse Resp B/P (MAP) Pulse Ox O2 Delivery O2 Flow Rate FiO2 01/14/18 09:00 Room Air 01/14/18 06:04 98.1 78 18 133/70 (91) 94 Capillary Refill : General Appearance: No Apparent Distress, WD/WN, Obese, Other (semi-pleasant) Respiratory: Chest Non Tender, Lungs Clear, Normal Breath Sounds, No Accessory Muscle Use, No Respiratory Distress Cardiovascular: Regular Rate, Rhythm, No Edema, No Gallop, No JVD, No Murmur, Normal Peripheral Pulses Neurologic/Psychiatric: Alert, Oriented x3, No Motor/Sensory Deficits, Normal Mood/Affect Skin: Other (rash resolved) Results/Procedures Lab Laboratory Tests 01/13/18 13:27 Patient resulted labs reviewed. Assessment/Plan Assessment and Plan Assess & Plan/Chief Complaint Assessment: Subacute left occipital lobe ischemic stroke Status post hypertensive crisis New onset diabetes mellitus [id number] with 200 blood sugar today Acute urticaria suspect Nicoderm or other new medication requiring IV steroids and antihistamines now resolved after steroids and DC Nicoderm Constipation still unresolved since refused supp Hyperlipidemia Smoker Visual loss from stroke MARION on CPAP Plan: Benadryl prn Hold nicotine patch along with other meds in case those of the source of the urticaria but likely it is Nicoderm patch BM treatment HGA1C SSI B Levemir Diagnosis/Problems Diagnosis/Problems (1) Cerebrovascular accident (CVA) Status: Acute Qualifiers: CVA mechanism: unspecified Qualified Codes: I63.9 - Cerebral infarction, unspecified (2) Urticaria due to drug allergy Status: Resolved Assessment & Plan: place Nicoderm on allergy list (3) Small cell lung cancer Status: Acute (4) Renal mass of unknown nature Status: Acute (5) Smoker Status: Chronic (6) Hypertension Status: Chronic Qualifiers: Hypertension type: essential hypertension Qualified Codes: I10 - Essential (primary) hypertension (7) Hyperlipemia Status: Chronic Qualifiers: Hyperlipidemia type: mixed hyperlipidemia Qualified Codes: E78.2 - Mixed hyperlipidemia (8) Constipation Status: Acute Qualifiers: Constipation type: slow transit constipation Qualified Codes: K59.01 - Slow transit constipation (9) Peripheral vision loss Status: Chronic Qualifiers: Laterality: unspecified laterality Qualified Codes: H53.459 - Other localized visual field defect, unspecified eye (10) MARION on CPAP Status: Chronic Clinical Quality Measures DVT/VTE Risk/Contraindication: Risk Factor Score Per Nursin RFS Level Per Nursing on Admit: 4+=Very High ZENA MCCABE DO Jan 14, 2018 11:32
[2018-01-14] MEDS: CARBAM PEROX/GLYC/PROP 15 ML DROPS (DEBROX) EACH EAR SCH ×3 (12:55→21:23)
[2018-01-14 15:07] VITALS: BP 102/57
[2018-01-14] MEDS ORDERED: LOSA100T8 PO (17:01)
[2018-01-14] MEDS ORDERED: HYDR12.56 PO (17:01)
[2018-01-14] MEDS ORDERED: GUAI100L13 PO (17:01)
[2018-01-14] MEDS ORDERED: ATOR80TA76 PO (17:01)
[2018-01-14] MEDS ORDERED: IPRA3AMP31 IH (17:01)
[2018-01-14] MEDS ORDERED: ASPI-586 PO (17:01)
[2018-01-14] MEDS ORDERED: METF-397 PO (17:01)
[2018-01-14] MEDS: ACETAMINOPHEN 500 MG TAB (TYLENOL) PO PRN (18:40)
--- NOTE | 2018-01-14 19:28 | PM & R (SOAP) Progress Note ---
Subjective This was a face to face visit with the patient. Date Seen by Provider: Jan 14, 2018 Time Seen by Provider: 19:00 Subjective/Events-last exam Patient was seen in his room this evening Patient min assist for transfers Appreciate Dr abdalla note and orders Patient indicates that DM a new DX. Date Identified: Jan 14, 2018 Time Identified: 19:00 Medication Intervention: Meds adjusted for DM and constipation by Hospitalist Review of Systems Gastrointestinal: Constipation Neurological: Weakness, Incoordination Objective Physician Exam Last Set of Vital Signs Vital Signs Date Time Temp Pulse Resp B/P (MAP) Pulse Ox O2 Delivery O2 Flow Rate FiO2 01/14/18 15:07 97.7 81 16 102/57 (72) 94 Room Air Capillary Refill : I&O Intake and Output 01/14/18 00:00 Intake Total 2030 ml Output Total 2175 ml Balance -145 ml Intake Oral 2030 ml Output Urine Total 2175 ml General: Alert, Oriented X3, No Acute Distress HEENT: Mucous Memb Moist/[place], Other (RT SIDED VISUAL IMPAIRMENT) Neck: Supple, No JVD Heart: Regular Rate Abdomen: Normal Bowel Sounds, Soft, No Tenderness, Other ( DISTENDED) Extremities: No Edema Skin: Other (SMALL RASH OVER LEFT MID ABDOMEN) Neuro: Other (rT HIP FLEX 3+/5 rue 3+/5 lEFT ue 4+/5 lle 4/5) Psych/Mental Status: Mental Status NL Results Lab Data Laboratory Tests 01/13/18 05:14: Glucometer 280H 01/13/18 11:28: Glucometer 209H 01/13/18 13:27: White Blood Count 16.7H, Red Blood Count 4.93, Hemoglobin 15.8, Hematocrit 46, Mean Corpuscular Volume 94, Mean Corpuscular Hemoglobin 32, Mean Corpuscular Hemoglobin Concent 34, Red Cell Distribution Width 13.5, Platelet Count 264, Mean Platelet Volume 10.8H, Neutrophils (%) (Auto) 80H, Lymphocytes (%) (Auto) 8L, Monocytes (%) (Auto) 11, Eosinophils (%) (Auto) 1, Basophils (%) (Auto) 0, Neutrophils # (Auto) 13.3H, Lymphocytes # (Auto) 1.3, Monocytes # (Auto) 1.9H, Eosinophils # (Auto) 0.2, Basophils # (Auto) 0.0, Neutrophils % (Manual) 86, Lymphocytes % (Manual) 6, Monocytes % (Manual) 7, Eosinophils % (Manual) 1, Basophils % (Manual) 0, Band Neutrophils 0, Blood Morphology Comment NORMAL, Sodium Level 135, Potassium Level 3.8, Chloride Level 99, Carbon Dioxide Level 21, Anion Gap 15H, Blood Urea Nitrogen 31H, Creatinine 1.05, Estimat Glomerular Filtration Rate > 60, BUN/Creatinine Ratio 30, Glucose Level 269H, Calcium Level 10.2H, Corrected Calcium 10.4H, Total Bilirubin 0.4, Aspartate Amino Transf (AST/SGOT) 16, Alanine Aminotransferase (ALT/SGPT) 22, Alkaline Phosphatase 104, Total Protein 6.7, Albumin 3.8 01/13/18 16:01: Glucometer 309H 01/13/18 20:03: Glucometer 298H 01/14/18 06:07: Glucometer 276H 01/14/18 11:01: Glucometer 226H 01/14/18 15:06: Glucometer 228H Assessment/Plan Assessment and Plan Left occipital stroke with RT Sided neglect and RT sided weakness and discoordination New onset DM HTN Non-small cell lung CA to have f/u as an outpatient Tobaccoism currently abstaining RT Renal mass to have f/u as an outpatient Constipation meds adjusted Abdominal rash with urticaria improved after N patch d/cd and steroids provided HLP MARION on CPAP Plan Continue PT/OT ST to assess tomorrow Team Conference 01-17-18 Adjust meds for DM as needed F/U re HGBA1C results pending Co-Morbidities that are continuing to impact the rehab process: (include details ) SYDNEE GUAN MD Jan 14, 2018 19:28
[2018-01-14] MEDS ORDERED: HYDROcodone/APAP 5 MG/325 MG (LORTAB) TAB ONE (21:10)
[2018-01-14] MEDS: HYDROcodone/APAP 5 MG/325 MG (LORTAB) TAB PO PRN (21:12)
[2018-01-14] MEDS: ALPRAZolam 0.25 MG (XANAX) TAB PO PRN (21:12)
[2018-01-14] MEDS: inSUlin DETERMIR 1 UNIT/0.01 ML (LEVEMIR) CHARGE PER UNIT SQ SCH (21:14)
[2018-01-15] MEDS: ACETAMINOPHEN 500 MG TAB (TYLENOL) PO PRN (01:55)
[2018-01-15] MEDS ORDERED: HYDROcodone/APAP 5 MG/325 MG (LORTAB) TAB ONE (06:10)
[2018-01-15 06:22] VITALS: BP 138/70
[2018-01-15] MEDS: HYDROcodone/APAP 5 MG/325 MG (LORTAB) TAB PO PRN ×2 (06:26→18:54)
[2018-01-15] MEDS: inSUlin ASPART (NovoLOG) 1 UNIT/0.01 ML (CHARGE PER UNIT) SC SCH ×5 (06:26→21:03)
--- NOTE | 2018-01-15 08:11 | Progress Note (SOAP) ---
Subjective Time Seen by a Provider: 08:07 Subjective/Events-last exam Patient had headache last night. Patient says the left side is good. Patient states the right side has problem of his body. Patient has history of tobacco listen. Patient has history of using a lot of met 15 years ago. Non-small cell lung cancer. Tobaccoism. History of malignant hypertension. Small castellanos aneurysm. Constipation. MARION on CPAP. Abdomen shows acute ischemic stroke Objective Exam Vital Signs Date Time Temp Pulse Resp B/P (MAP) Pulse Ox O2 Delivery O2 Flow Rate FiO2 01/15/18 06:22 97.3 69 18 138/70 (92) 93 Room Air 01/14/18 21:00 Room Air 01/14/18 19:52 Room Air 01/14/18 15:07 97.7 81 16 102/57 (72) 94 Room Air 01/14/18 09:00 Room Air I & O 01/15/18 07:00 Intake Total 1560 ml Output Total 2025 ml Balance -465 ml Capillary Refill : General Appearance: No Apparent Distress, WD/WN HEENT: Normal ENT Inspection Neck: Full Range of Motion, Normal Inspection Respiratory: Chest Non Tender, No Accessory Muscle Use, No Respiratory Distress Cardiovascular: Regular Rate, Rhythm, No Murmur Gastrointestinal: non tender, soft Results Lab Laboratory Tests 01/14/18 11:01: Glucometer 226H 01/14/18 15:06: Glucometer 228H 01/14/18 20:14: Glucometer 220H 01/15/18 06:18: Glucometer 115H Assessment/Plan Assessment/Plan Assess & Plan/Chief Complaint CVA. Diabetes. Hypertension. Non-small cell lung cancer. Right renal mass. Tobaccoism. History of methadone use. Constipation. MARION on CPAP. Severe hypertensive crisis. Small castellanos aneurysm Clinical Quality Measures DVT/VTE Risk/Contraindication: Risk Factor Score Per Nursin RFS Level Per Nursing on Admit: 4+=Very High XAVIER KRISHNA DO Jan 15, 2018 08:11
[2018-01-15] MEDS: CARBAM PEROX/GLYC/PROP 15 ML DROPS (DEBROX) EACH EAR SCH ×4 (08:43→21:02)
[2018-01-15] MEDS: NICOTINE PATCH REMOVAL TP SCH (08:43)
[2018-01-15] MEDS: DOCUSATE SODIUM 100 MG (COLACE) CAP PO SCH ×2 (08:44→19:43)
[2018-01-15] MEDS: ASPIRIN E.C. 81 MG (ECOTRIN) TAB PO SCH (08:44)
[2018-01-15] MEDS: POLYETHYLENE GLYCOL 17 GM (MIRALAX) PACK PO SCH ×2 (08:46→19:43)
[2018-01-15] MEDS: guaiFENesin (MUCINEX) 600 MG TAB PO SCH ×2 (08:46→21:02)
[2018-01-15] MEDS: amLODIPine 5 MG (NORVASC) TAB PO SCH (08:49)
[2018-01-15] MEDS: SENNA W/DOCUSATE (SENOKOT S) TABLET PO SCH ×2 (08:49→19:43)
[2018-01-15] MEDS: ALPRAZolam 0.25 MG (XANAX) TAB PO PRN (08:49)
[2018-01-15] MEDS: BISACODYL 10 MG SUPP (DULCOLAX) PR SCH ×2 (08:50→19:44)
--- NOTE | 2018-01-15 08:59 | Physical Therapy Daily Note ---
PT Daily Note-Current Subjective Patient in bed pre tx, agrees to PT, has an unrated headache. Appearance Patient sitting EOB post tx with nurse call, phone, tray, all needs met. Nursing in room to give meds. Mental Status Patient Orientation: Person, Place, Situation Transfers Functional [place] Measure 0=Not Assessed/NA 4=Minimal Assistance 1=Total Assistance 5=Supervision or Setup 2=Maximal Assistance 6=Modified [place] 3=Moderate Assistance 7=Complete IndependenceIRFPAI Quality Coding Scale 6 Independent with activity with or without an assistive device 5 Patient requires set up or clean up by helper. Patient completes activity by themselves 4 Supervision or touching assist (CGA). [place] provide cues , steadying assist 3 The helper provides less than half the effort to complete the activity 2 The helper provides more than half the effort to complete the activity 1 Dependent. The helper does all the effort to complete an activity 7 Patient refused to complete or attempt activity 9 The patient did not perform the activity before the current illness or injury 88 Not attempted due to Medical conditions or safety concerns Transfers (B, C, W/C) (FIM): 3 Scootin Rollin Supine to/from Sit: 5 Sit to/from Stand: 4 Bed to/from Chair: 3 Patient needs min assist for sit to stand and mod assist for stand pivot due to poor balance. Weight Bearing Right Lower Extremity: Right Full Weight Bearing Left Lower Extremity: Left Full Weight Bearing Gait Training Gait (FIM): 2 Distance: 40', 80', 60', 20' Gait Level of Assist: 3 Gait Persons Needed: 2 Gait Assistive Device: Handheld Assist Patient has poor balance and right neglect, needs assist with weight shifting. Exercises sit to stand 3 sets of 5 Treatments bed mobility, transfers, ambulation, patient was also toileted once for a BM mod assist Assessment Current Status: Fair Progress Patient has significant visual impairments that impede therapy. PT Short Term Goals Short Term Goals Time Frame: Jan 20, 2018 Transfers (B,C,W/C) (FIM): 5 Gait (FIM): 5 Distance (FIM): 2=114-71 ft Gait Distance Comment: 100' Gait Level of Assist: 5 Gait Assistive Device: Handheld Assist Wheelchair Distance: 5' PT Alf Goals Alf Goals PT Alf Goals Time Frame: Feb 03, 2018 Transfers (B,C,W/C) (FIM): 7 Sit to Lying (QC): 6 Lying-Sitting on Side/Bed(QC): 6 Sit to Stand (QC): 6 Rollin Roll Left to Right (QC): 6 Chair/Srh-yt-Iibzz Xfer(QC): 6 Car Transfer (QC): 6 Does the Patient Walk: Yes Gait (FIM): 6 Gait distance (FIM): 3=150 ft Distance: 500' Walk 10 feet (QC): 6 Walk 10ft-Uneven Surface(QC): 5 Walk 50ft with 2 Turns (QC): 6 Walk 150 ft (QC): 6 Gait Level of Assist: 6 Gait Assistive Device: None, Cane Small Base Quad Stairs (FIM): 7 # of Steps: 12 1 Step (curb) (QC): 6 4 Steps (QC): 6 12 Steps (QC): 6 Stairs Level Of Assist: 7 Picking up an Object (QC): 6 PT Plan Problem List Problem List: Activity Tolerance, Functional Strength, Safety, Balance, Gait, Transfer, Bed Mobility, ROM Treatment/Plan Treatment Plan: Continue Plan of Care Treatment Plan: Bed Mobility, Concurrent Therapy, Education, Functional Activity Araceli, Functional Strength, Group Therapy, Gait, Safety, Therapeutic Exercise, Transfers Treatment Duration: Feb 03, 2018 Frequency: 6 times per week Estimated Hrs Per Day: 1.5 hours per day Patient and/or Family Agrees t: Yes Safety Risks/Education Patient Education: Gait Training, Transfer Techniques, Correct Positioning, Safety Issues Teaching Recipient: Patient Teaching Methods: Demonstration, Discussion Response to Teaching: Reinforcement Needed Time/GCodes Time In: 0800 Time Out: 0900 Total Billed Treatment Time: 60 Total Billed Treatment 1 visit EX 10' GT 30' FA 20' BETTY PARMAR PT Jan 15, 2018 08:59
--- NOTE | 2018-01-15 09:00 | PM & R (SOAP) Progress Note ---
Subjective This was a face to face visit with the patient. Date Seen by Provider: Jan 15, 2018 Time Seen by Provider: 08:15 Subjective/Events-last exam Patient was seen in his room this AM Discussed case with DR baeza and RN Blood sugars doing better with insulin and d/c of Steroid Urticaria improved Constipation improved Patient Min assist for transfers Date Identified: Jan 15, 2018 Time Identified: 08:00 Medication Intervention: Current meds reviewed Review of Systems Neurological: Weakness, Incoordination Objective Physician Exam Last Set of Vital Signs Vital Signs Date Time Temp Pulse Resp B/P (MAP) Pulse Ox O2 Delivery O2 Flow Rate FiO2 01/15/18 06:22 97.3 69 18 138/70 (92) 93 Room Air Capillary Refill : I&O Intake and Output 01/15/18 00:00 Intake Total 1820 ml Output Total 2500 ml Balance -680 ml Intake Oral 1820 ml Output Urine Total 2500 ml # Bowel Movements 1 General: Alert, Oriented X3, No Acute Distress HEENT: Mucous Memb Moist/[place], Other (RT SIDED VISUAL IMPAIRMENT) Neck: Supple, No JVD Heart: Regular Rate Abdomen: Normal Bowel Sounds, Soft, No Tenderness, Other ( DISTENDED) Extremities: No Edema Skin: Other (SMALL RASH OVER LEFT MID ABDOMEN) Neuro: Other (rT HIP FLEX 3+/5 rue 3+/5 lEFT ue 4+/5 lle 4/5) Psych/Mental Status: Mental Status NL Results Lab Data Laboratory Tests 01/13/18 05:14: Glucometer 280H 01/13/18 11:28: Glucometer 209H 01/13/18 13:27: White Blood Count 16.7H, Red Blood Count 4.93, Hemoglobin 15.8, Hematocrit 46, Mean Corpuscular Volume 94, Mean Corpuscular Hemoglobin 32, Mean Corpuscular Hemoglobin Concent 34, Red Cell Distribution Width 13.5, Platelet Count 264, Mean Platelet Volume 10.8H, Neutrophils (%) (Auto) 80H, Lymphocytes (%) (Auto) 8L, Monocytes (%) (Auto) 11, Eosinophils (%) (Auto) 1, Basophils (%) (Auto) 0, Neutrophils # (Auto) 13.3H, Lymphocytes # (Auto) 1.3, Monocytes # (Auto) 1.9H, Eosinophils # (Auto) 0.2, Basophils # (Auto) 0.0, Neutrophils % (Manual) 86, Lymphocytes % (Manual) 6, Monocytes % (Manual) 7, Eosinophils % (Manual) 1, Basophils % (Manual) 0, Band Neutrophils 0, Blood Morphology Comment NORMAL, Sodium Level 135, Potassium Level 3.8, Chloride Level 99, Carbon Dioxide Level 21, Anion Gap 15H, Blood Urea Nitrogen 31H, Creatinine 1.05, Estimat Glomerular Filtration Rate > 60, BUN/Creatinine Ratio 30, Glucose Level 269H, Calcium Level 10.2H, Corrected Calcium 10.4H, Total Bilirubin 0.4, Aspartate Amino Transf (AST/SGOT) 16, Alanine Aminotransferase (ALT/SGPT) 22, Alkaline Phosphatase 104, Total Protein 6.7, Albumin 3.8 01/13/18 16:01: Glucometer 309H 01/13/18 20:03: Glucometer 298H 01/14/18 06:07: Glucometer 276H 01/14/18 11:01: Glucometer 226H 01/14/18 15:06: Glucometer 228H 01/14/18 20:14: Glucometer 220H 01/15/18 06:18: Glucometer 115H Assessment/Plan Assessment and Plan Left occipital stroke with rt sided neglect and weakness and discoordination New onset DM with Borderline elevated HGB A1C HTN Non-small cell lung CA to have f/u as an outpatient Tobaccoism currently abstaining Constipation improved with adjustment in meds Urticaria improved with d/c of N patch and course of Steroid HLP MARION on CPAP Plan Continue PT/OT Appreciate DR gaines note ST to assess Team Conference 01-17-18 Co-Morbidities that are continuing to impact the rehab process: (include details ) SYDNEE GUAN MD Jan 15, 2018 09:00
--- NOTE | 2018-01-15 11:53 | Occupational Ther Daily Note ---
OT Current Status-Daily Note Subjective Pt alert, lying in bed. Pt agrees to therapy. No c/o pain at this time. Mental Status/Objective Patient Orientation: Person, Place, Time, Situation Functional [place] Measure 0=Not Assessed/NA 4=Minimal Assistance 1=Total Assistance 5=Supervision or Setup 2=Maximal Assistance 6=Modified [place] 3=Moderate Assistance 7=Complete [place] ADL-Treatment Pt stated that he had a shower last night and did not need one right now. Supine to sitting using bed rail, mod I. Pt stood at EOB to use urinal, assist x2 for standing and placing urinal. Mod A for SPT, LOB assist to regain balance. Verbal and physical cues to use R UE with oral care and some sequencing. Functional [place] Measure 0=Not Assessed/NA 4=Minimal Assistance 1=Total Assistance 5=Supervision or Setup 2=Maximal Assistance 6=Modified [place] 3=Moderate Assistance 7=Complete IndependenceIRFPAI Quality Coding Scale 6 Independent with activity with or without an assistive device 5 Patient requires set up or clean up by helper. Patient completes activity by themselves 4 Supervision or touching assist (CGA). [place] provide cues , steadying assist 3 The helper provides less than half the effort to complete the activity 2 The helper provides more than half the effort to complete the activity 1 Dependent. The helper does all the effort to complete an activity 7 Patient refused to complete or attempt activity 9 The patient did not perform the activity before the current illness or injury 88 Not attempted due to Medical conditions or safety concerns Grooming (FIM): 4 Oral Hygiene (QC): 3 Upper Body (FIM): 4 (Min A to manipulate shirt to don.) Upper Body Dressing (QC): 3 Other Treatment Transported pt in w/c to therapy gym. Arm bike completed set time for 15 min and 15-25 jamison resistance, fluctuating resistance due to R UE fatigue. Pt took multiple breaks throughout arm bike, took extended time to complete. Visitors present in gym while completing therapy. ROM arc completed with B UE , 1# wt attached to R/L UE then took of 1# wt on R UE in the middle of task. Assist guiding R UE to reach down and grab cones off of floor while sitting in w /c. Shldr flexion 10x's with guidance for correct position in movement. Slight pain in R shldr joint noted, increased tightness. Pt sitting in w/c in room talking to visitors. After therapy, pt lying in bed with safety measures in place. Call light/phone in reach. All needs met in room. OT Short Term Goals Short Term Goals Time Frame: Jan 27, 2018 Eating(FIM): 5 Grooming(FIM): 5 Bathing(FIM): 4 Upper Body Dressing(FIM): 5 Lower Body Dressing(FIM): 4 Toileting(FIM): 4 Transfers (B,C,W/C) (FIM): 5 Toilet/Commode Transfer(FIM): 5 Tub Transfer(FIM): 5 Shower Transfer(FIM): 5 Additional Short Term Goals: 1-Demonstrate ADL Tasks, 2-Verbalize Understanding , 3-ImproveStrength/Araceli 1=Demonstrate adherence to instructed precautions during ADL tasks. 2=Patient will verbalize/demonstrate understanding of assistive devices/ modifications for ADL. 3=Patient will improve strength/tolerance for activity to enable patient to perform ADL's. OT Half-Way Goals Tax Assessor Goals Time Frame: Feb 10, 2018 Eating (FIM): 7 Eating (QC): 6 Groomin Oral Hygiene (QC): 6 Bathing(FIM): 6 Shower/Bathe Self (QC): 6 Upper Body Dressing(FIM): 7 Upper Body Dressing (QC): 6 Lower Body Dressing(FIM): 6 Lower Body Dressing (QC): 6 On/Off Footwear (QC): 6 Toileting(FIM): 6 Toileting Hygiene (QC): 6 Transfers (B,C,W/C) (FIM): 6 Toilet/Commode Transfer(FIM): 6 Toilet/Commode Transfer (QC): 6 Tub Transfer(FIM): 6 Shower Transfer(FIM): 6 Additional Goals: 1-Demonstrate ADL Tasks, 2-Verbalize Understanding, 3- ImproveStrength/Araceli 1=Demonstrate adherence to instructed precautions during ADL tasks. 2=Patient will verbalize/demonstrate understanding of assistive devices/ modifications for ADL. 3=Patient will improve strength/tolerance for activity to enable patient to perform ADL's. OT Education/Plan Discharge Recommendations Plan/Recommendations: Continue POC Treatment Plan/Plan of Care Patient would benefit from OT for education, treatment and training to promote independence in ADL's, mobility, safety and/or upper extremity function for ADL' s. Plan of Care: ADL Retraining, Functional Mobility, Group Exercise/Act as Ind, UE Funct Exercise/Act, UE Neuromus Re-Ed/Coord, Visual/Perceptual Retrain Treatment Duration: Feb 24, 2018 Frequency: At least 5 of 7 days/Wk (IRF) Estimated Hrs Per Day: 1.5 hours per day Agreement: Yes Rehab Potential: Good Time/GCodes Start Time: 10:30 Stop Time: 12:00 Total Time Billed (hr/min): 90 Billed Treatment Time 1 visit-ADL 3 (50 min) NM 3 (40 min) SHAY DAVIDSON Jan 15, 2018 11:53
--- NOTE | 2018-01-15 14:50 | Physical Therapy Daily Note ---
PT Daily Note-Current Subjective Agreeable to PT. Reports he is anxious to get better. Transfers Functional [place] Measure 0=Not Assessed/NA 4=Minimal Assistance 1=Total Assistance 5=Supervision or Setup 2=Maximal Assistance 6=Modified [place] 3=Moderate Assistance 7=Complete IndependenceIRFPAI Quality Coding Scale 6 Independent with activity with or without an assistive device 5 Patient requires set up or clean up by helper. Patient completes activity by themselves 4 Supervision or touching assist (CGA). [place] provide cues , steadying assist 3 The helper provides less than half the effort to complete the activity 2 The helper provides more than half the effort to complete the activity 1 Dependent. The helper does all the effort to complete an activity 7 Patient refused to complete or attempt activity 9 The patient did not perform the activity before the current illness or injury 88 Not attempted due to Medical conditions or safety concerns Supine to/from Sit: 5 (SBA with bed mobility) Sit to/from Stand: 4 (close CGa and skilled cues for sequencing and safety. Impulsive. Tends to not use his hands to push up) Impulsive. Needs cues for safety. Tends to lean right at times. Weight Bearing Right Lower Extremity: Right Full Weight Bearing Left Lower Extremity: Left Full Weight Bearing Gait Training Does the Patient Walk?: Yes Gait (FIM): 2 Distance (FIM): 5=373-00 ft Distance: 50 ft x 2 Gait Assistive Device: FWW Used a FWW with mod assist to hold onto the walker and mod assist at the gait belt. Step length right is varied and uncoordinated at times. No milka LOB noted but concerns with safety and maintaining balance. Tends to lean to the right and right neglect noted as he crowded right. Exercises Seated Therapy Exercises: Ankle pumps, Sit to stand, Long arc quads, Hip flexion, Hamstring Curls Seated Reps: 12 (to promote LE strength and coordination) Treatments In bed post treatment with needs met and bed alarm activiated. Assessment Pt did fairly well with use of the walked, in general requires mod assist and a second person present for safety. PT Short Term Goals Short Term Goals Time Frame: Jan 20, 2018 Transfers (B,C,W/C) (FIM): 5 Gait (FIM): 5 Distance (FIM): 3=021-72 ft Gait Distance Comment: 100' Gait Level of Assist: 5 Gait Assistive Device: Handheld Assist Wheelchair Distance: 5' PT Siding Mechanic Goals Detention Goals PT Detention Goals Time Frame: Feb 03, 2018 Transfers (B,C,W/C) (FIM): 7 Sit to Lying (QC): 6 Lying-Sitting on Side/Bed(QC): 6 Sit to Stand (QC): 6 Rollin Roll Left to Right (QC): 6 Chair/Aiv-yp-Ezhyt Xfer(QC): 6 Car Transfer (QC): 6 Does the Patient Walk: Yes Gait (FIM): 6 Gait distance (FIM): 3=150 ft Distance: 500' Walk 10 feet (QC): 6 Walk 10ft-Uneven Surface(QC): 5 Walk 50ft with 2 Turns (QC): 6 Walk 150 ft (QC): 6 Gait Level of Assist: 6 Gait Assistive Device: None, Cane Small Base Quad Stairs (FIM): 7 # of Steps: 12 1 Step (curb) (QC): 6 4 Steps (QC): 6 12 Steps (QC): 6 Stairs Level Of Assist: 7 Picking up an Object (QC): 6 PT Plan Problem List Problem List: Activity Tolerance, Functional Strength, Safety, Balance, Gait, Transfer, Bed Mobility Treatment/Plan Treatment Plan: Continue Plan of Care Treatment Plan: Bed Mobility, Concurrent Therapy, Education, Functional Activity Araceli, Functional Strength, Group Therapy, Gait, Safety, Therapeutic Exercise, Transfers Treatment Duration: Feb 03, 2018 Frequency: 6 times per week Estimated Hrs Per Day: 1.5 hours per day Patient and/or Family Agrees t: Yes Safety Risks/Education Patient Education: Transfer Techniques, Safety Issues Teaching Recipient: Patient Teaching Methods: Demonstration, Discussion Response to Teaching: Reinforcement Needed Time/GCodes Time In: 1300 Time Out: 1330 Total Billed Treatment Time: 30 Total Billed Treatment visit GT 20 EX 10 SHAY COTTO PT Jan 15, 2018 14:50
--- NOTE | 2018-01-15 16:15 | ST Cognitive Linguistic Eval ---
Speech Evaluation-General Medical Diagnosis CVA Onset Date: Jan 04, 2018 Therapy Diagnosis Therapy Diagnosis: Cognition Precautions Precautions/Isolations: Fall Prevention, Standard Precautions Referral Referring Physician: Dr. Alegria Reason for Referral: Evaluation/Treatment Medical History Pertinent Medical History: CVA, HTN, Smoking Current History Occluded left paradichlorobenzene tender, CVA Reviewed History: Yes Social History Current Living Status: Spouse Speech PLF-Current Status Prior Level of Function Pt was indepedent Subjective Pt pleasant and cooperative. Language Eval: Auditory Comprehends Simple Yes/No Ques: Mild Follows 1-Step Commands: Functional Follows Complex Directions: Functional Follows General Conversations: Functional Language Eval: Verbal Language Completes Spontaneous Greeting: Functional Produces Auto, Serial Info: Functional Word Finding: Mild Requests Basic Needs: Functional States Basic Personal Info: Functional Expresses Complex Ideas: Moderate Language Evaluation: Reading NT Cognitive Patient Orientation Oriented to all but year. Objective Cognitive Domain Attention: WNL Memory: Moderate Problem Solving: Mild Objective Results [facility] Cognitive/Communication Assessment was administered to assess cognitive -linguistic functioning. Results are: Memory - 3 word recall was 3/3 correct for immediate; 0/3 correct for delayed and 0/3 for remote delay. Organization - pt unable to comprehend task. Problem Solving - Simple was 3/4 correct; Abstract/complex was 2/2 correct. Speech/language appeared to be WFL. Oral Motor/Speech Production WNL Impression Pt exhibits moderate cognitive deficits in the areas of memory, organization and problem solving. Communication/Social Cognition Comprehension: 6 Expression: 7 Social Interaction: 7 Problem Solvin Memory: 2 Speech Patient Assess Expression of Ideas/Wants: Expression (4) Understanding Verbal Content: Understands (4) Brief Interview-Mental Status: Yes Repetition of Three Words: Three (3) Temporal Orientation: Year: No answer (0) Temporal Orientation: Month: Accurate within 5 days(2) Recall : Wear to say "Sock": No, could not recall (0) Recall : Color: No, could not recall (0) Recall : Bed: No, could not recall (0) Speech Short Term Goals Short Term Goals Short Term Goals Patient will complete auditory/visual linguistic/memory tasks at 80% with min/ mod assist. Patient will complete auditory/visual problem solving tasks at 80% with min/mod assist. Time Frame-ST week Comprehension: 6 Expression: 7 Social Interaction: 7 Problem Solvin Memory: 3 Speech Maintenance Mechanic 2Nd Shift Goals Maintenance Mechanic 2Nd Shift Goals Patient will display functional cognition for safety and independence for return to home with min assist. Comprehension: 7 Expression: 7 Social Interaction: 7 Problem Solvin Memory: 4 Speech-Plan Patient/Family Goals Patient/Family Goals: Patient's plan is to return home. Treatment Plan Speech Therapy Treatment Plan: Modify Plan, See Comments (Skilled ST indicated to address cognitive deficits.) Skilled ST recommended for cognitive deficits. Frequency: 5 times per week Estimated Hrs Per Day: .5 hour per day Rehab Potential: Guarded Barriers to Learning: Decreased vision, decreased cognitive Pt/Family Agrees to Plan: Yes Safety Risks/Education Teaching Recipient: Patient Teaching Methods: Discussion Response to Teaching: Verbalize Understanding Time Speech Therapy Time In: 14:00 Speech Therapy Time Out: 14:20 Total Billed Time: 20 Billed Treatment Time 1, SPSNDVUP OUMOU Conklin Jan 15, 2018 16:15
[2018-01-15 18:00] VITALS: BP 102/65
[2018-01-15] MEDS: inSUlin DETERMIR 1 UNIT/0.01 ML (LEVEMIR) CHARGE PER UNIT SQ SCH (21:02)
[2018-01-16] MEDS: CALCIUM CARBONATE 500 MG (TUMS) TAB.CHEW PO PRN (01:02)
[2018-01-16] MEDS ORDERED: ANTACID SUSP 30 ML UDC (MYLANTA) ONE (01:21)
[2018-01-16] MEDS ORDERED: LIDOCAINE 2% VISCOUS 15 ML UDC ONE (01:25)
[2018-01-16] MEDS ORDERED: ANTACID SUSP 30 ML UDC (MYLANTA) PO ONE (01:30)
[2018-01-16] MEDS ORDERED: LIDOCAINE 2% VISCOUS 15 ML UDC PO ONE (01:30)
[2018-01-16] MEDS: inSUlin ASPART (NovoLOG) 1 UNIT/0.01 ML (CHARGE PER UNIT) SC SCH ×4 (05:14→21:02)
[2018-01-16 06:46] VITALS: BP 125/77
--- NOTE | 2018-01-16 08:27 | Progress Note (SOAP) ---
Subjective Time Seen by a Provider: 08:25 Subjective/Events-last exam Patient had abdominal and chest discomfort last night. Troponin and EKG nothing acute. GI cocktail took discomfort away Objective Exam Vital Signs Date Time Temp Pulse Resp B/P (MAP) Pulse Ox O2 Delivery O2 Flow Rate FiO2 01/16/18 06:46 98.1 61 18 125/77 (93) 95 Room Air 01/15/18 20:58 Room Air 01/15/18 19:16 Room Air 01/15/18 18:00 98.4 75 18 102/65 (77) 95 Room Air 01/15/18 09:00 Room Air I & O 01/16/18 07:00 Intake Total 1920 ml Output Total 1370 ml Balance 550 ml Capillary Refill : General Appearance: No Apparent Distress, WD/WN HEENT: Normal ENT Inspection Neck: Full Range of Motion, Normal Inspection Respiratory: No Accessory Muscle Use, No Respiratory Distress Cardiovascular: Regular Rate, Rhythm, No Murmur Results Lab Laboratory Tests 01/15/18 11:04: Glucometer 192H 01/15/18 16:10: Glucometer 119H 01/15/18 20:52: Glucometer 190H 01/16/18 01:32: Troponin I < 0.30 01/16/18 05:12: Glucometer 136H Assessment/Plan Assessment/Plan Assess & Plan/Chief Complaint CVA. Diabetes. Hypertension. Non-small cell lung cancer. Right renal mass. Tobaccoism. History of methadone use. Constipation. MARION on CPAP. Severe hypertensive crisis. Small castellanos aneurysm. . 01/16/18. CVA. Diabetes. Hypertension. Non-small cell lung cancer. GI upset. Severe hypertensive crisis. Small castellanos aneurysm Clinical Quality Measures DVT/VTE Risk/Contraindication: Risk Factor Score Per Nursin RFS Level Per Nursing on Admit: 4+=Very High XAVIER KRISHNA DO Jan 16, 2018 08:26
[2018-01-16] MEDS: NICOTINE PATCH REMOVAL TP SCH (08:36)
--- NOTE | 2018-01-16 08:57 | Physical Therapy Daily Note ---
PT Daily Note-Current Subjective Patient in bed pre tx, agrees to PT, states he has a slight headache. Appearance Patient sitting EOB post tx with nursing, has nurse call and tray. Mental Status Patient Orientation: Person, Place, Situation Transfers Functional [place] Measure 0=Not Assessed/NA 4=Minimal Assistance 1=Total Assistance 5=Supervision or Setup 2=Maximal Assistance 6=Modified [place] 3=Moderate Assistance 7=Complete IndependenceIRFPAI Quality Coding Scale 6 Independent with activity with or without an assistive device 5 Patient requires set up or clean up by helper. Patient completes activity by themselves 4 Supervision or touching assist (CGA). [place] provide cues , steadying assist 3 The helper provides less than half the effort to complete the activity 2 The helper provides more than half the effort to complete the activity 1 Dependent. The helper does all the effort to complete an activity 7 Patient refused to complete or attempt activity 9 The patient did not perform the activity before the current illness or injury 88 Not attempted due to Medical conditions or safety concerns Transfers (B, C, W/C) (FIM): 4 Scootin Rollin Supine to/from Sit: 5 Sit to/from Stand: 4 Bed to/from Chair: 4 Sit to stand with CGA, transfers with min assist. Patient needs assist with balance during transfers and cues for hand placement and positioning. Weight Bearing Right Lower Extremity: Right Full Weight Bearing Left Lower Extremity: Left Full Weight Bearing Gait Training Gait (FIM): 1 Distance: 40'x2, 20' Gait Level of Assist: 4 Gait Persons Needed: 1 Gait Assistive Device: FWW Patient ambulates with an unsteady gait, poor step through on the right side, needs assist with balance and directing walker and keeping right hand on the walker. Wheelchair Training Does the Pt Use a Wheelchair?: Yes Wheelchair (FIM): 2 Distance: 50'x2 Wheelchair Level of Assist: 2 Type of Wheelchair: Manual Exercises NuStep Minutes: 15 NuStep Workload: 5 Treatments bed mobility and transfers, ambulation, functional strengthening, patient also put on his shirt with setup Assessment Current Status: Fair Progress slightly improved transfers but patient overall was fatigued and more shaky PT Short Term Goals Short Term Goals Time Frame: Jan 20, 2018 Transfers (B,C,W/C) (FIM): 5 Gait (FIM): 5 Distance (FIM): 6=594-40 ft Gait Distance Comment: 100' Gait Level of Assist: 5 Gait Assistive Device: Handheld Assist Wheelchair Distance: 5' PT Ocular Care Technician Goals Ocular Care Technician Goals PT Ocular Care Technician Goals Time Frame: Feb 03, 2018 Transfers (B,C,W/C) (FIM): 7 Sit to Lying (QC): 6 Lying-Sitting on Side/Bed(QC): 6 Sit to Stand (QC): 6 Rollin Roll Left to Right (QC): 6 Chair/Qbu-ou-Zchgf Xfer(QC): 6 Car Transfer (QC): 6 Does the Patient Walk: Yes Gait (FIM): 6 Gait distance (FIM): 3=150 ft Distance: 500' Walk 10 feet (QC): 6 Walk 10ft-Uneven Surface(QC): 5 Walk 50ft with 2 Turns (QC): 6 Walk 150 ft (QC): 6 Gait Level of Assist: 6 Gait Assistive Device: None, Cane Small Base Quad Stairs (FIM): 7 # of Steps: 12 1 Step (curb) (QC): 6 4 Steps (QC): 6 12 Steps (QC): 6 Stairs Level Of Assist: 7 Picking up an Object (QC): 6 PT Plan Problem List Problem List: Activity Tolerance, Functional Strength, Safety, Balance, Gait, Transfer, Bed Mobility, ROM Treatment/Plan Treatment Plan: Continue Plan of Care Treatment Plan: Bed Mobility, Concurrent Therapy, Education, Functional Activity Araceli, Functional Strength, Group Therapy, Gait, Safety, Therapeutic Exercise, Transfers Treatment Duration: Feb 03, 2018 Frequency: 6 times per week Estimated Hrs Per Day: 1.5 hours per day Patient and/or Family Agrees t: Yes Safety Risks/Education Patient Education: Gait Training, Transfer Techniques, Correct Positioning, W/ C Management, Safety Issues Teaching Recipient: Patient Teaching Methods: Demonstration, Discussion Response to Teaching: Reinforcement Needed Time/GCodes Time In: 0800 Time Out: 0900 Total Billed Treatment Time: 60 Total Billed Treatment 1 visit GT 30' EX 15' [facility] 15' BETTY PARMAR PT Jan 16, 2018 08:57
[2018-01-16] MEDS: POLYETHYLENE GLYCOL 17 GM (MIRALAX) PACK PO SCH ×2 (09:01→21:04)
[2018-01-16] MEDS: ASPIRIN E.C. 81 MG (ECOTRIN) TAB PO SCH (09:01)
[2018-01-16] MEDS: guaiFENesin (MUCINEX) 600 MG TAB PO SCH ×2 (09:01→21:04)
[2018-01-16] MEDS: DOCUSATE SODIUM 100 MG (COLACE) CAP PO SCH ×2 (09:01→21:04)
[2018-01-16] MEDS: amLODIPine 5 MG (NORVASC) TAB PO SCH (09:01)
[2018-01-16] MEDS: BISACODYL 10 MG SUPP (DULCOLAX) PR SCH ×2 (09:02→21:05)
[2018-01-16] MEDS: SENNA W/DOCUSATE (SENOKOT S) TABLET PO SCH ×2 (09:02→21:05)
[2018-01-16] MEDS: NICOTINE 2 MG GUM (NICORETTE) PO PRN ×2 (09:03→13:39)
[2018-01-16] MEDS: CARBAM PEROX/GLYC/PROP 15 ML DROPS (DEBROX) EACH EAR SCH ×4 (09:03→21:07)
--- NOTE | 2018-01-16 10:18 | Occupational Ther Daily Note ---
OT Current Status-Daily Note Subjective Pt alert, lying in bed. Pt stated that he was tired today. TREVIÑO explained that he will be tired from therapy and his body healing, but needs to continue to participate in therapy to get stronger and meet his goals of getting better. Pt agrees to therapy. No c/o pain, at this time. Mental Status/Objective Patient Orientation: Person, Place, Time, Situation Functional [place] Measure 0=Not Assessed/NA 4=Minimal Assistance 1=Total Assistance 5=Supervision or Setup 2=Maximal Assistance 6=Modified [place] 3=Moderate Assistance 7=Complete [place] ADL-Treatment Declined shower and changing pants today. With HOB slightly elevated and bed rails pt able to go from supine <--> EOB with supervision. Pt able to sit EOB by self. CGA with SPT from bed <--> w/c. Pt able to use utensils to brush teeth and wash face. Difficulty finding items due to visual field cut on R side and lower quadrant of visual field. Verbal cues to look at these areas to find objects. Min A to don/doff shirt. Functional [place] Measure 0=Not Assessed/NA 4=Minimal Assistance 1=Total Assistance 5=Supervision or Setup 2=Maximal Assistance 6=Modified [place] 3=Moderate Assistance 7=Complete IndependenceIRFPAI Quality Coding Scale 6 Independent with activity with or without an assistive device 5 Patient requires set up or clean up by helper. Patient completes activity by themselves 4 Supervision or touching assist (CGA). [place] provide cues , steadying assist 3 The helper provides less than half the effort to complete the activity 2 The helper provides more than half the effort to complete the activity 1 Dependent. The helper does all the effort to complete an activity 7 Patient refused to complete or attempt activity 9 The patient did not perform the activity before the current illness or injury 88 Not attempted due to Medical conditions or safety concerns Grooming (FIM): 4 Oral Hygiene (QC): 3 Upper Body (FIM): 4 Upper Body Dressing (QC): 3 On/Off Footwear (QC): 4 (In supine, pt able to doff socks by self using R and L UE's.) Pt does attempt to use R UE during ADLs. R UE has athetoid movements due to decrease muscle control. When R UE gets to designated area, pt is able to control movement to get task completed. Other Treatment Pt completed dower robert UE exercises with 3# wt on L UE for strengthening. Pt was able to hold onto dowel robert and complete 2 shldr exercises and 1 bicep exercise, 3 sets 10 reps. Pt controlled eccentric/concentric movements after a few repetitions of exercise. After therapy, pt lying in bed with call light/ phone in reach. All needs met in room. Education OT Patient Education: Progress toward Goal/Update tx plan, Purpose of tx/ functional activities Teaching Recipient: Patient Teaching Methods: Discussion Response to Teaching: Verbalize Understanding, Reinforcement Needed OT Short Term Goals Short Term Goals Time Frame: Jan 27, 2018 Eating(FIM): 5 Grooming(FIM): 5 Bathing(FIM): 4 Upper Body Dressing(FIM): 5 Lower Body Dressing(FIM): 4 Toileting(FIM): 4 Transfers (B,C,W/C) (FIM): 5 Toilet/Commode Transfer(FIM): 5 Tub Transfer(FIM): 5 Shower Transfer(FIM): 5 Comprehension(FIM): 6 Expression(FIM): 7 Social Interaction(FIM): 7 Problem Solving(FIM): 4 Memory(FIM): 3 Additional Short Term Goals: 1-Demonstrate ADL Tasks, 2-Verbalize Understanding , 3-ImproveStrength/Araceli 1=Demonstrate adherence to instructed precautions during ADL tasks. 2=Patient will verbalize/demonstrate understanding of assistive devices/ modifications for ADL. 3=Patient will improve strength/tolerance for activity to enable patient to perform ADL's. OT Detention Goals Thermostat Mechanic Goals Time Frame: Feb 10, 2018 Eating (FIM): 7 Eating (QC): 6 Groomin Oral Hygiene (QC): 6 Bathing(FIM): 6 Shower/Bathe Self (QC): 6 Upper Body Dressing(FIM): 7 Upper Body Dressing (QC): 6 Lower Body Dressing(FIM): 6 Lower Body Dressing (QC): 6 On/Off Footwear (QC): 6 Toileting(FIM): 6 Toileting Hygiene (QC): 6 Transfers (B,C,W/C) (FIM): 6 Toilet/Commode Transfer(FIM): 6 Toilet/Commode Transfer (QC): 6 Tub Transfer(FIM): 6 Shower Transfer(FIM): 6 Comprehension(FIM): 7 Expression (FIM): 7 Social Interaction(FIM): 7 Problem Solving(FIM): 5 Memory(FIM): 4 Additional Goals: 1-Demonstrate ADL Tasks, 2-Verbalize Understanding, 3- ImproveStrength/Araceli 1=Demonstrate adherence to instructed precautions during ADL tasks. 2=Patient will verbalize/demonstrate understanding of assistive devices/ modifications for ADL. 3=Patient will improve strength/tolerance for activity to enable patient to perform ADL's. OT Education/Plan Discharge Recommendations Plan/Recommendations: Continue POC Treatment Plan/Plan of Care Patient would benefit from OT for education, treatment and training to promote independence in ADL's, mobility, safety and/or upper extremity function for ADL' s. Plan of Care: ADL Retraining, Functional Mobility, Group Exercise/Act as Ind, UE Funct Exercise/Act, UE Neuromus Re-Ed/Coord, Visual/Perceptual Retrain Treatment Duration: Feb 24, 2018 Frequency: At least 5 of 7 days/Wk (IRF) Estimated Hrs Per Day: 1.5 hours per day Agreement: Yes Rehab Potential: Guarded Time/GCodes Start Time: 09:00 Stop Time: 10:00 Total Time Billed (hr/min): 60 Billed Treatment Time 1 visit-ADL 2 (25 min) NM 2 (35 min) SHAY DAVIDSON Jan 16, 2018 10:18
--- NOTE | 2018-01-16 11:10 | PM & R (SOAP) Progress Note ---
Subjective This was a face to face visit with the patient. Date Seen by Provider: Jan 16, 2018 Time Seen by Provider: 10:30 Subjective/Events-last exam Patient was seen in his room this AM feeling better this AM HGB A1C 6.9 Accucheck 136.Patient min assist for transfers Review of Systems Neurological: Weakness, Incoordination Objective Physician Exam Last Set of Vital Signs Vital Signs Date Time Temp Pulse Resp B/P (MAP) Pulse Ox O2 Delivery O2 Flow Rate FiO2 01/16/18 09:21 Room Air 01/16/18 06:46 98.1 61 18 125/77 (93) 95 Capillary Refill : I&O Intake and Output 01/16/18 00:00 Intake Total 2080 ml Output Total 1250 ml Balance 830 ml Intake Oral 2080 ml Output Urine Total 1250 ml # Bowel Movements 1 General: Alert, Oriented X3, No Acute Distress HEENT: Mucous Memb Moist/[place], Other (RT SIDED VISUAL IMPAIRMENT) Neck: Supple, No JVD Heart: Regular Rate Abdomen: Normal Bowel Sounds, Soft, No Tenderness, Other ( DISTENDED) Extremities: No Edema Skin: Other (SMALL RASH OVER LEFT MID ABDOMEN) Neuro: Other (rT HIP FLEX 3+/5 rue 3+/5 lEFT ue 4+/5 lle 4/5) Psych/Mental Status: Mental Status NL Results Lab Data Laboratory Tests 01/13/18 11:28: Glucometer 209H 01/13/18 13:27: White Blood Count 16.7H, Red Blood Count 4.93, Hemoglobin 15.8, Hematocrit 46, Mean Corpuscular Volume 94, Mean Corpuscular Hemoglobin 32, Mean Corpuscular Hemoglobin Concent 34, Red Cell Distribution Width 13.5, Platelet Count 264, Mean Platelet Volume 10.8H, Neutrophils (%) (Auto) 80H, Lymphocytes (%) (Auto) 8L, Monocytes (%) (Auto) 11, Eosinophils (%) (Auto) 1, Basophils (%) (Auto) 0, Neutrophils # (Auto) 13.3H, Lymphocytes # (Auto) 1.3, Monocytes # (Auto) 1.9H, Eosinophils # (Auto) 0.2, Basophils # (Auto) 0.0, Neutrophils % (Manual) 86, Lymphocytes % (Manual) 6, Monocytes % (Manual) 7, Eosinophils % (Manual) 1, Basophils % (Manual) 0, Band Neutrophils 0, Blood Morphology Comment NORMAL, Sodium Level 135, Potassium Level 3.8, Chloride Level 99, Carbon Dioxide Level 21, Anion Gap 15H, Blood Urea Nitrogen 31H, Creatinine 1.05, Estimat Glomerular Filtration Rate > 60, BUN/Creatinine Ratio 30, Glucose Level 269H, Mean Blood Glucose 151H, Hemoglobin A1c 6.9H, Calcium Level 10.2H, Corrected Calcium 10.4H , Total Bilirubin 0.4, Aspartate Amino Transf (AST/SGOT) 16, Alanine Aminotransferase (ALT/SGPT) 22, Alkaline Phosphatase 104, Total Protein 6.7, Albumin 3.8 01/13/18 16:01: Glucometer 309H 01/13/18 20:03: Glucometer 298H 01/14/18 06:07: Glucometer 276H 01/14/18 11:01: Glucometer 226H 01/14/18 15:06: Glucometer 228H 01/14/18 20:14: Glucometer 220H 01/15/18 06:18: Glucometer 115H 01/15/18 11:04: Glucometer 192H 01/15/18 16:10: Glucometer 119H 01/15/18 20:52: Glucometer 190H 01/16/18 01:32: Troponin I < 0.30 01/16/18 05:12: Glucometer 136H Assessment/Plan Assessment and Plan 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
--- NOTE | 2018-01-16 11:22 | Individualized Plan of Care ---
Individualized Plan of Care Rehab Nursing IPOC Order Admission Date Jan 12, 2018 at 19:48 Current Orders Orders Admission Order(Inpt,Obs,Sdc) (01/12/18 16:02) Vital Signs: Routine (Order) 08,16,00 (01/12/18 16:02) Sequential Compression Device 08,20 (01/12/18 16:02) Supervisor Powdered Sugar-Inpt Rehab Con (01/12/18 16:02) Rehab Nursing Orders-Ipoc (01/12/18 16:02) Physical Therapy Rehab Orders (01/12/18 16:02) Occupational Therapy Rehab Ord (01/12/18 16:02) Speech Therapy Rehab Orders (01/12/18 16:02) Turn And Reposition Q2HR (01/12/18 16:02) Intake & Output 06,14,22 (01/12/18 16:02) Precautions (Aru) (01/12/18 16:02) Weekly Weight (Lbs) WEEK (01/12/18 16:02) Code/Resuscitation (01/12/18 16:02) Initiate Admission Nursing Pro .admission (01/12/18 16:02) Aspirin Enteric Coated Tablet (Ecotrin T (01/13/18 09:00) Atorvastatin Tablet (Lipitor) (01/12/18 21:00) Guaifenesin Tablet (Mucinex Tablet) (01/12/18 21:00) Hydrochlorothiazide Cap/Tablet (Hctz Cap (01/13/18 09:00) Albuterol/Ipra Inhalation Soln (Duoneb I (01/12/18 16:15) Svn Small Volume Nebulizer (01/12/18 16:07) Losartan Tablet (Cozaar Tablet) (01/13/18 09:00) Nicotine Patch (Nicoderm Patch) (01/13/18 09:00) Diabetes Education (01/12/18 16:52) Atorvastatin Tablet (Lipitor Tablet) (01/12/18 21:00) Patch Removal (Patch Removal) (01/13/18 08:59) Diphenhydramine Tablet (Benadryl Tablet) (01/12/18 20:15) Consult Physician (01/12/18 20:14) Diphenhydramine Tablet (Benadryl Tablet) (01/12/18 20:13) Ambulate 08,12,20 (01/12/18 20:52) Dvt/Vte Risk - Notifiy Physici 08 (01/12/18 20:52) Patient Visit (01/13/18 ) Pt Eval Low Complexity (01/13/18 ) Exercise Therap, Ea 15 Min (01/13/18 ) Functional Activities, Ea 15 (01/13/18 ) Influenza Quad (5+[place]) 2018- (Afluria (01/13/18 11:45) Insulin Determir (Per Unit) (Levemir (Pe (01/13/18 12:07) Insulin Determir (Per Unit) (Levemir (Pe (01/13/18 21:00) Accucheck Achs ACHS (01/13/18 11:57) Insulin Aspart (Novolog) (Novolog (Charg (01/13/18 16:00) Docusate Sodium Capsule (Colace Capsule) (01/13/18 12:00) Senna S Tablet (Senokot S Tablet) (01/13/18 12:00) Polyethylene Glycol Powder Pkt (Miralax (01/13/18 12:00) Acetaminophen Tablet (Tylenol Tablet) (01/13/18 12:00) Alprazolam Tablet (Xanax Tablet) (01/13/18 12:00) Calcium Carbonate Chew Tablet (Antacid C (01/13/18 12:00) Bisacodyl Suppository (Dulcolax Supposit (01/13/18 21:00) Methylprednisolone Sod Succ (Solu-Medrol (01/13/18 12:09) Amlodipine Tablet (Norvasc Tablet) (01/14/18 09:00) Amlodipine Tablet (Norvasc Tablet) (01/13/18 12:06) Hydralazine Tablet (Apresoline Tablet) (01/13/18 12:00) Cbc With Automated Diff (01/13/18 11:57) Comprehensive Metabolic Panel (01/13/18 11:57) Hemoglobin A1c (01/13/18 11:57) Patient May Use Own Med,Single (Patient (01/13/18 12:00) Manual Differential (01/13/18 13:27) Carbam Perox/Glycer/Prop Glyc (Debrox Ot (01/14/18 13:00) Hydrocodone/Apap 5/325 Tablet (Lortab 5 (01/14/18 21:00) Hydrocodone/Apap 5/325 Tablet (Lortab 5 (01/15/18 06:10) Hydrocodone/Apap 5/325 Tablet (Lortab 5 (01/14/18 21:10) Cho 60g/M 1snack (16-2000 Gregory) (01/15/18 Breakfast) Nicotine Gum (Nicorette Gum) (01/15/18 09:15) Automatic Tray (01/15/18 13:32) Patient Visit (01/15/18 ) Gait Training, Ea 15 Min (01/15/18 ) Functional Activities, Ea 15 (01/15/18 ) Exercise Therap, Ea 15 Min (01/15/18 ) Patient Visit (01/15/18 ) Gait Training, Ea 15 Min (01/15/18 ) Exercise Therap, Ea 15 Min (01/15/18 ) Ekg Tracing (01/16/18 01:09) Troponin I (01/16/18 01:09) Lidocaine 2% Viscous 15 Ml (Xylocaine Vi (01/16/18 01:30) Antacid Suspension (Mylanta Suspension (01/16/18 01:30) Lidocaine 2% Viscous 15 Ml (Xylocaine Vi (01/16/18 01:25) Antacid Suspension (Mylanta Suspension (01/16/18 01:21) Patient Visit (01/15/18 ) Speech Sound Lang Comp (01/15/18 ) Rehab Nursing Orders: Ongoing Assess. of Cognitive Status, Ongoing Assess. of Function Status, Disease Management & Educaiton, DVT Prophylaxis, Fall Prevention, Fluid/Electrolyte/Nutrition Mgmt, Infection Prevention, Medication Management & Education, Management of Risks & Complications, Management of Skin Intergrity, Nutrition Management, Pain Management, Patient/Family Support, Safety Management PT IPOC Problem List: Activity Tolerance, Functional Strength, Safety, Balance, Gait, Transfer, Bed Mobility, ROM Treatment Plan: Continue Plan of Care Bed Mobility, Concurrent Therapy, Education, Functional Activity Araceli, Functional Strength, Group Therapy, Gait, Safety, Therapeutic Exercise, Transfers Treatment Duration: Feb 03, 2018 Frequency: 6 times per week Estimated Hrs Per Day: 1.5 hours per day OT IPOC Problems: Decreased Activ Tolerance, Decreased Safety Aware, Decreased UE Strength, Impaired Coordination, Impaired Funct Balance, Impaired I ADL's, Impaired Self-Care Skills, Visual-Perceptual Deficit OT Treatment, Training and Edu: Yes Plan of Care: ADL Retraining, Functional Mobility, Group Exercise/Act as Ind, UE Funct Exercise/Act, UE Neuromus Re-Ed/Coord, Visual/Perceptual Retrain Treatment Duration: Feb 24, 2018 Frequency: At least 5 of 7 days/Wk (IRF) Estimated Hrs Per Day: 1.[address] IPOC Speech Therapy Treatment Plan: Modify Plan, See Comments (Skilled ST indicated to address cognitive deficits.) Treatment Duration: Jan 25, 2018 Frequency: 5 times per week Estimated Hrs Per Day: .5 hour per day Supervisor Powdered Sugar/Case Mgmt Supervisor Powdered Sugar/Case Managemen: Discharge Planning, Patient/Family Counseling Dietitian/Manager Demand Dietitian/Manager Demand to monitor nutritional status and make changes and/or recommendations as needed and work with speech pathology on dietary upgrades as the occur. Physician IPOC Medical Issues being managed closely and that require the 24 hour availability of a physician: New onset DM with elevated HGBA1C 6.9 HTN Non-small cell lung CA Tobaccoism Constipation Urticaria HLP MARION on cpap IGC code 01.2 Etiologic DX Large left occipital infarct of the SUPPLIER SPECIALIST due to occlusion of the left SUPPLIER SPECIALIST Medical Issues: Bowel/Bladder Function, DVT Prophylaxis, Falls Precautions, Fluid/Electrolyte/Nutrition Balance, Infection Protection, Pain Management, Other (List) (as per above) Brief Synthesis of Preadmission Screen, Post-Admission Evaluation, and Therapy Evaluations: 58 yo male who had been Independent and working FT at a [employer] who sustained a Large left occipital infarct resulting in Rt sided neglect and RT sided weaknes with a decline in functional [facility] referred her for stroke rehab.Carries dx of new onset DM as well as HTN .Also found to have Non- small cell Lung CA for which he will have f/u on an outpatient basis has a GF who is supportive Medical Prognosis: Good Anticipated Length of Stay: 18 Modified Independent to supervsion for adls and mobility skills Anticipated d/c Destination: Home with GF,family and C SYDNEE GUAN MD Jan 16, 2018 11:22
--- NOTE | 2018-01-16 11:46 | Occupational Ther Daily Note ---
OT Current Status-Daily Note Subjective Pt sleeping in bed, woke easily to name. Pt agrees to therapy. No c/o pain at this time. Pt groggy during first of therapy. Mental Status/Objective Patient Orientation: Person, Place, Time, Situation Functional [place] Measure 0=Not Assessed/NA 4=Minimal Assistance 1=Total Assistance 5=Supervision or Setup 2=Maximal Assistance 6=Modified [place] 3=Moderate Assistance 7=Complete [place] ADL-Treatment Functional [place] Measure 0=Not Assessed/NA 4=Minimal Assistance 1=Total Assistance 5=Supervision or Setup 2=Maximal Assistance 6=Modified [place] 3=Moderate Assistance 7=Complete IndependenceIRFPAI Quality Coding Scale 6 Independent with activity with or without an assistive device 5 Patient requires set up or clean up by helper. Patient completes activity by themselves 4 Supervision or touching assist (CGA). [place] provide cues , steadying assist 3 The helper provides less than half the effort to complete the activity 2 The helper provides more than half the effort to complete the activity 1 Dependent. The helper does all the effort to complete an activity 7 Patient refused to complete or attempt activity 9 The patient did not perform the activity before the current illness or injury 88 Not attempted due to Medical conditions or safety concerns Other Treatment Pt has increased tremors with L UE during fine motor tasks. Pt is able to reach with R UE and grasp items off of bedside table. Modified finger cobbler with writing utensil using R hand to form "S, A, r, M and inconsistent H, T". Increased pressure when writing on paper, pushing writing utensil through paper. Pt using L hand to find edge of paper to write on. Pt able to stand with CGA when using urinal, assist to place and hold urinal. Pt able to molded goods spot picker food with either hand and bring to mouth, finger food. After therapy, pt sitting on EOB eating lunch. Call light/phone in reach. Nrsg notified. OT Short Term Goals Short Term Goals Time Frame: Jan 27, 2018 Eating(FIM): 5 Grooming(FIM): 5 Bathing(FIM): 4 Upper Body Dressing(FIM): 5 Lower Body Dressing(FIM): 4 Toileting(FIM): 4 Transfers (B,C,W/C) (FIM): 5 Toilet/Commode Transfer(FIM): 5 Tub Transfer(FIM): 5 Shower Transfer(FIM): 5 Comprehension(FIM): 6 Expression(FIM): 7 Social Interaction(FIM): 7 Problem Solving(FIM): 4 Memory(FIM): 3 Additional Short Term Goals: 1-Demonstrate ADL Tasks, 2-Verbalize Understanding , 3-ImproveStrength/Araceli 1=Demonstrate adherence to instructed precautions during ADL tasks. 2=Patient will verbalize/demonstrate understanding of assistive devices/ modifications for ADL. 3=Patient will improve strength/tolerance for activity to enable patient to perform ADL's. OT Production Cell Leader Goals Production Cell Leader Goals Time Frame: Feb 10, 2018 Eating (FIM): 7 Eating (QC): 6 Groomin Oral Hygiene (QC): 6 Bathing(FIM): 6 Shower/Bathe Self (QC): 6 Upper Body Dressing(FIM): 7 Upper Body Dressing (QC): 6 Lower Body Dressing(FIM): 6 Lower Body Dressing (QC): 6 On/Off Footwear (QC): 6 Toileting(FIM): 6 Toileting Hygiene (QC): 6 Transfers (B,C,W/C) (FIM): 6 Toilet/Commode Transfer(FIM): 6 Toilet/Commode Transfer (QC): 6 Tub Transfer(FIM): 6 Shower Transfer(FIM): 6 Comprehension(FIM): 7 Expression (FIM): 7 Social Interaction(FIM): 7 Problem Solving(FIM): 5 Memory(FIM): 4 Additional Goals: 1-Demonstrate ADL Tasks, 2-Verbalize Understanding, 3- ImproveStrength/Araceli 1=Demonstrate adherence to instructed precautions during ADL tasks. 2=Patient will verbalize/demonstrate understanding of assistive devices/ modifications for ADL. 3=Patient will improve strength/tolerance for activity to enable patient to perform ADL's. OT Education/Plan Discharge Recommendations Plan/Recommendations: Continue POC Treatment Plan/Plan of Care Patient would benefit from OT for education, treatment and training to promote independence in ADL's, mobility, safety and/or upper extremity function for ADL' s. Plan of Care: ADL Retraining, Functional Mobility, Group Exercise/Act as Ind, UE Funct Exercise/Act, UE Neuromus Re-Ed/Coord, Visual/Perceptual Retrain Treatment Duration: Feb 24, 2018 Frequency: At least 5 of 7 days/Wk (IRF) Estimated Hrs Per Day: 1.5 hours per day Agreement: Yes Rehab Potential: Guarded Time/GCodes Start Time: 11:30 Stop Time: 12:00 Total Time Billed (hr/min): 30 Billed Treatment Time 1 visit-FA 2 (30 min) SHAY DAVIDSON Jan 16, 2018 11:46
[2018-01-16] MEDS ORDERED: NICO-588 TD (14:33)
--- NOTE | 2018-01-16 14:35 | Physical Therapy Daily Note ---
PT Daily Note-Current Subjective Pt awake in bed watching tv when PT arrived. Pt agreed to get up and exercise in therapy gym. Pain Numeric Pain Scale: 0-No Pain Location: No Pain Reported Mental Status Patient Orientation: Confused, Mumbles Transfers Functional [place] Measure 0=Not Assessed/NA 4=Minimal Assistance 1=Total Assistance 5=Supervision or Setup 2=Maximal Assistance 6=Modified [place] 3=Moderate Assistance 7=Complete IndependenceIRFPAI Quality Coding Scale 6 Independent with activity with or without an assistive device 5 Patient requires set up or clean up by helper. Patient completes activity by themselves 4 Supervision or touching assist (CGA). [place] provide cues , steadying assist 3 The helper provides less than half the effort to complete the activity 2 The helper provides more than half the effort to complete the activity 1 Dependent. The helper does all the effort to complete an activity 7 Patient refused to complete or attempt activity 9 The patient did not perform the activity before the current illness or injury 88 Not attempted due to Medical conditions or safety concerns Transfers (B, C, W/C) (FIM): 4 Scootin Rollin Supine to/from Sit: 4 Sit to/from Stand: 4 Weight Bearing Right Lower Extremity: Right Full Weight Bearing Left Lower Extremity: Left Full Weight Bearing Gait Training Does the Patient Walk?: Yes Gait (FIM): 1 Distance (FIM): 1=up to 49 ft Distance: 30' Gait Level of Assist: 4 Gait Persons Needed: 1 Gait Assistive Device: FWW Wheelchair Training Does the Pt Use a Wheelchair?: Yes Wheelchair (FIM): 3 Wheelchair Distance: 1=up to 49 ft Distance: 15' Wheelchair Level of Assist: 3 Type of Wheelchair: Manual Assessment Pt was able to ambulate for 30' with a FWW requiring CGA and needed second therapist following with a WC. Pt has right side neglect and needs to be cued frequently to check body position or to focus on right side during activities. Pt worked on narrow rylie weight shifts and needed to be cued throughout weight shifts to bring R arm up to parallel bar for support. Patient then progressed to tandem weight shift and was cued throughout again to utilize the R UE for support. He showed signs of fatigue throughout exercise and needed rest breaks throughout to recover. Pt will continue to benefit from therapy to improve overall function for daily demands. PT Short Term Goals Short Term Goals Time Frame: Jan 20, 2018 Transfers (B,C,W/C) (FIM): 5 Gait (FIM): 5 Distance (FIM): 4=986-37 ft Gait Distance Comment: 100' Gait Level of Assist: 5 Gait Assistive Device: Handheld Assist Wheelchair Distance: 50'x2 PT Senior Living Goals Senior Living Goals PT Senior Living Goals Time Frame: Feb 03, 2018 Transfers (B,C,W/C) (FIM): 7 Sit to Lying (QC): 6 Lying-Sitting on Side/Bed(QC): 6 Sit to Stand (QC): 6 Rollin Roll Left to Right (QC): 6 Chair/Cmy-cr-Fiwro Xfer(QC): 6 Car Transfer (QC): 6 Does the Patient Walk: Yes Gait (FIM): 6 Gait distance (FIM): 3=150 ft Distance: 500' Walk 10 feet (QC): 6 Walk 10ft-Uneven Surface(QC): 5 Walk 50ft with 2 Turns (QC): 6 Walk 150 ft (QC): 6 Gait Level of Assist: 6 Gait Assistive Device: None, Cane Small Base Quad Stairs (FIM): 7 # of Steps: 12 1 Step (curb) (QC): 6 4 Steps (QC): 6 12 Steps (QC): 6 Stairs Level Of Assist: 7 Picking up an Object (QC): 6 PT Plan Problem List Problem List: Activity Tolerance, Functional Strength, Safety, Balance, Gait, Transfer, Bed Mobility Treatment/Plan Treatment Plan: Continue Plan of Care Treatment Plan: Bed Mobility, Concurrent Therapy, Education, Functional Activity Araceli, Functional Strength, Group Therapy, Gait, Safety, Therapeutic Exercise, Transfers Treatment Duration: Feb 03, 2018 Frequency: 6 times per week Estimated Hrs Per Day: 1.5 hours per day Patient and/or Family Agrees t: Yes Safety Risks/Education Response to Teaching: Verbalize Understanding, Reinforcement Needed Time/GCodes Time In: 1300 Time Out: 1330 Total Billed Treatment Time: 30 Total Billed Treatment 1 Visit FA - 20' NM -10' HENRY BOLIVAR PT Jan 16, 2018 14:35
--- NOTE | 2018-01-16 15:01 | Speech Therapy Daily Note ---
Speech Daily Progress Note Subjective Date Seen by Provider: Jan 16, 2018 Time Seen by Provider: 10:05 Patient was pleasant and cooperative. Objective Patient completed linguistic tasks related to objects given with quantifier stated. Patient was able to complete 2 objects with 90% accuracy, 3 objects at 80% with minimal repetitions, 4 objects at 60% with moderate repetitions. Assessment Assessment Current Status: Fair Progress Treatment Plan Continue Plan of Care Communication Comprehension: 6 Expression: 7 Social Cognition Social Interaction: 7 Problem Solvin Memory: 2 Speech Short Term Goals Short Term Goals Short Term Goals Patient will complete auditory/visual linguistic/memory tasks at 80% with min/ mod assist. Patient will complete auditory/visual problem solving tasks at 80% with min/mod assist. Time Frame-ST week Comprehension: 6 Expression: 7 Social Interaction: 7 Problem Solvin Memory: 3 Speech Fci Goals Concrete Fence Builder Goals Patient will display functional cognition for safety and independence for return to home with min assist. Comprehension: 7 Expression: 7 Social Interaction: 7 Problem Solvin Memory: 4 Speech-Plan Patient/Family Goals Patient/Family Goals: Patient's plan is to return home. Treatment Plan Speech Therapy Treatment Plan: Continue Plan of Care Patient motivated to participate toward goals for safety and independence. Treatment Duration: Jan 25, 2018 Frequency: 5 times per week Estimated Hrs Per Day: .5 hour per day Rehab Potential: Fair Pt/Family Agrees to Plan: Yes Safety Risks/Education Teaching Recipient: Patient Teaching Methods: Discussion Response to Teaching: Verbalize Understanding Time Speech Therapy Time In: 10:05 Speech Therapy Time Out: 10:35 Total Billed Time: 30 Billed Treatment Time 1, OUMOU Brooks Jan 16, 2018 15:01
[2018-01-16 17:22] VITALS: BP 150/71
[2018-01-16] MEDS: inSUlin DETERMIR 1 UNIT/0.01 ML (LEVEMIR) CHARGE PER UNIT SQ SCH (21:02)
[2018-01-16] MEDS: HYDROcodone/APAP 5 MG/325 MG (LORTAB) TAB PO PRN (21:02)
[2018-01-16] MEDS: ALPRAZolam 0.25 MG (XANAX) TAB PO PRN (21:02)
[2018-01-17 05:04] VITALS: BP 126/72
[2018-01-17] MEDS: inSUlin ASPART (NovoLOG) 1 UNIT/0.01 ML (CHARGE PER UNIT) SC SCH ×4 (06:26→20:39)
--- NOTE | 2018-01-17 08:32 | Progress Note (SOAP) ---
Subjective Time Seen by a Provider: 08:30 Subjective/Events-last exam Patient feeling better today. Patient having no abdominal or chest discomfort. Patient still working with physical therapy and occupational therapy. Patient feels like do better Objective Exam Vital Signs Date Time Temp Pulse Resp B/P (MAP) Pulse Ox O2 Delivery O2 Flow Rate FiO2 01/17/18 07:58 Room Air 01/17/18 05:04 97.3 64 18 126/72 (90) 96 Room Air 01/16/18 21:02 Room Air 01/16/18 21:00 Room Air 01/16/18 17:22 98.2 71 18 150/71 (97) 96 Room Air 01/16/18 09:21 Room Air I & O 01/17/18 07:00 Intake Total 1720 ml Output Total 950 ml Balance 770 ml Capillary Refill : General Appearance: No Apparent Distress, WD/WN HEENT: Normal ENT Inspection Neck: Full Range of Motion, Normal Inspection Respiratory: No Accessory Muscle Use, No Respiratory Distress Cardiovascular: Regular Rate, Rhythm, No Murmur Gastrointestinal: non tender, soft Results Lab Laboratory Tests 01/16/18 10:57: Glucometer 149H 01/16/18 16:13: Glucometer 136H 01/16/18 20:59: Glucometer 204H 01/17/18 05:46: Glucometer 105 Assessment/Plan Assessment/Plan Assess & Plan/Chief Complaint CVA. Diabetes. Hypertension. Non-small cell lung cancer. Right renal mass. Tobaccoism. History of methadone use. Constipation. MARION on CPAP. Severe hypertensive crisis. Small castellanos aneurysm. . 01/16/18. CVA. Diabetes. Hypertension. Non-small cell lung cancer. GI upset. Severe hypertensive crisis. Small castellanos aneurysm. . 01/17/18. CVA. Diabetes is doing good. Hypertension. Non-small cell lung cancer. GI upset better. Severe hypertensive crisis history. Small castellanos aneurysm Clinical Quality Measures DVT/VTE Risk/Contraindication: Risk Factor Score Per Nursin RFS Level Per Nursing on Admit: 4+=Very High XAVIER KRSIHNA DO Jan 17, 2018 08:32
--- NOTE | 2018-01-17 09:22 | ST Dysphagia Evaluation ---
Speech Evaluation-General Medical Diagnosis CVA Onset Date: Jan 04, 2018 Therapy Diagnosis Therapy Diagnosis: ? Dysphagia Precautions Precautions: Fall (Patient was evaluated for possible dysphagia.) Precautions/Isolations: Fall Prevention, Standard Precautions Referral Referring Physician: Dr. Alegria Reason for Referral: Evaluation/Treatment Medical History Pertinent Medical History: CVA, HTN, Smoking Reviewed History: Yes Social History Current Living Status: Spouse Speech PLF/Current-Dysphagia Prior Level of Function Patient lived at home and ate a regular diet without difficulty. Subjective Patient was seen for dysphagia evaluation in his room this am for the morning meal. Cognitive Status Patient Orientation: Person, Place, Time Oral Motor Skills Dentition: Natural Current Food Consistancy: Regular, Thin Liquids Ability to Follow Directions: Good Patient was verbally cued to slow down the rate of intake which he was able to follow. Voice Voice Phonatory-Based Quality: Normal Voice Pitch: Normal Face Facial Symmetry: Symmetrical Oral-Facial Assessment Oral-Facial Dentition: Normal Labial Seal Description: Normal Lingual Protrusion: Normal Lingual ROM: Normal Volitional Dry Swallow: Yes Dysphagia Evaluation Consistencies Presented: Regular, Thin Liquid, Mechanical Soft Oral phase within functional limits. Pharyngeal phase is within functional limits. Dietary Recommendations: Regular Liquid Recommendations: Thin Swallowing Precautions: Oral Supervision Staff Patient should have staff supervision for mealtimes due to unsafe, impulsive eating behaviors. Dysphagia Evaluation Summary Patient did not exhibit any overt s/s of aspiration. He responds well to verbal cues to slow down the rate of intake and the bite/drink size. Patient exhibits impulsive eating behaviors. Dysphagia therapy is not recommended, however he should have staff supervision for mealtimes for verbal cues to slow down and take appropriate bite size. Barriers to Learning None identified. Speech Short Term Goals Short Term Goals Short Term Goals Patient will complete auditory/visual linguistic/memory tasks at 80% with min/ mod assist. Patient will complete auditory/visual problem solving tasks at 80% with min/mod assist. Time Frame-ST week Comprehension: 6 Expression: 7 Social Interaction: 7 Problem Solvin Memory: 3 Speech Medical Educator Goals Medical Educator Goals Patient will display functional cognition for safety and independence for return to home with min assist. Comprehension: 7 Expression: 7 Social Interaction: 7 Problem Solvin Memory: 4 Speech-Plan Patient/Family Goals Patient/Family Goals: to return home Treatment Plan Speech Therapy Treatment Plan: Modify Plan, See Comments (Pt does not require skilled ST for swallowing) Swallow WNL skilled ST not indicated Treatment Duration: Jan 25, 2018 Frequency: Modified Program (IRF) (0) Estimated Hrs Per Day: Other (0) Rehab Potential: Fair Pt/Family Agrees to Plan: Yes Safety Risks/Education Teaching Recipient: Patient Teaching Methods: Discussion Response to Teaching: Verbalize Understanding Time Speech Therapy Time In: 08:00 Speech Therapy Time Out: 08:15 Total Billed Time: 15 Billed Treatment Time 1, FLORA Galloway Jan 17, 2018 09:22
[2018-01-17] MEDS: guaiFENesin (MUCINEX) 600 MG TAB PO SCH ×2 (09:40→20:57)
[2018-01-17] MEDS: ASPIRIN E.C. 81 MG (ECOTRIN) TAB PO SCH (09:40)
[2018-01-17] MEDS: DOCUSATE SODIUM 100 MG (COLACE) CAP PO SCH ×2 (09:40→20:53)
[2018-01-17] MEDS: amLODIPine 5 MG (NORVASC) TAB PO SCH (09:40)
[2018-01-17] MEDS: SENNA W/DOCUSATE (SENOKOT S) TABLET PO SCH ×2 (09:40→20:53)
[2018-01-17] MEDS: POLYETHYLENE GLYCOL 17 GM (MIRALAX) PACK PO SCH ×2 (09:41→20:55)
[2018-01-17] MEDS: NICOTINE PATCH REMOVAL TP SCH (09:42)
[2018-01-17] MEDS: CARBAM PEROX/GLYC/PROP 15 ML DROPS (DEBROX) EACH EAR SCH ×4 (09:42→20:53)
[2018-01-17] MEDS: BISACODYL 10 MG SUPP (DULCOLAX) PR SCH ×2 (09:44→21:00)
[2018-01-17] MEDS: NICOTINE 21 MG (NICODERM) PATCH TD SCH (09:44)
--- NOTE | 2018-01-17 10:02 | Occupational Ther Daily Note ---
OT Current Status-Daily Note Subjective Pt sleeping in bed, woke to name. Pt agrees to therapy. Pt states that he is tired and would rather sleep. No c/o pain. Mental Status/Objective Patient Orientation: Person, Place, Time, Situation Functional [place] Measure 0=Not Assessed/NA 4=Minimal Assistance 1=Total Assistance 5=Supervision or Setup 2=Maximal Assistance 6=Modified [place] 3=Moderate Assistance 7=Complete [place] ADL-Treatment Pt agrees to shower. After therapy, pt sitting in w/c with nrsg present in room. Call light/phone in reach. All needs met in room. Functional [place] Measure 0=Not Assessed/NA 4=Minimal Assistance 1=Total Assistance 5=Supervision or Setup 2=Maximal Assistance 6=Modified [place] 3=Moderate Assistance 7=Complete IndependenceIRFPAI Quality Coding Scale 6 Independent with activity with or without an assistive device 5 Patient requires set up or clean up by helper. Patient completes activity by themselves 4 Supervision or touching assist (CGA). [place] provide cues , steadying assist 3 The helper provides less than half the effort to complete the activity 2 The helper provides more than half the effort to complete the activity 1 Dependent. The helper does all the effort to complete an activity 7 Patient refused to complete or attempt activity 9 The patient did not perform the activity before the current illness or injury 88 Not attempted due to Medical conditions or safety concerns Eating (FIM): 6 (Pt able to open containers/packages. L hand tremors. Wt'd utensils to decrease L hand tremors.) Eating (QC): 6 Grooming (FIM): 5 (Assist to place toothpaste on toothbrush. Pt able to complete grooming.) Oral Hygiene (QC): 5 Bathing (FIM): 4 (Using rolling shower chair with cutout, long handle sponge, grabbar and hand held shower. CGA for balance and safety in sitting and stading.) Bathing Location: L Arm, R Arm, L Upper Leg, R Upper Leg, L Lower Leg ( including foot), R Lower Leg (including foot), Chest, Abdomen, Buttocks, Perineal Area Shower/Bathe Self (QC): 4 Lower Body Dressing (FIM): 4 (CGA for safety in standing while pt hiked pants over hips. Pt was able to don/doff pants and socks with close SBA. Pt uses grabbars and wall to stabilize self while hiking pants.) Lower Body Dressing (QC): 4 On/Off Footwear (QC): 5 OT Short Term Goals Short Term Goals Time Frame: Jan 27, 2018 Eating(FIM): 5 Grooming(FIM): 5 Bathing(FIM): 4 Upper Body Dressing(FIM): 5 Lower Body Dressing(FIM): 4 Toileting(FIM): 4 Transfers (B,C,W/C) (FIM): 5 Toilet/Commode Transfer(FIM): 5 Tub Transfer(FIM): 5 Shower Transfer(FIM): 5 Comprehension(FIM): 6 Expression(FIM): 7 Social Interaction(FIM): 7 Problem Solving(FIM): 4 Memory(FIM): 3 Additional Short Term Goals: 1-Demonstrate ADL Tasks, 2-Verbalize Understanding , 3-ImproveStrength/Araceli 1=Demonstrate adherence to instructed precautions during ADL tasks. 2=Patient will verbalize/demonstrate understanding of assistive devices/ modifications for ADL. 3=Patient will improve strength/tolerance for activity to enable patient to perform ADL's. OT Clinical Genetics Laboratory Chief Goals Clinical Genetics Laboratory Chief Goals Time Frame: Feb 10, 2018 Eating (FIM): 7 Eating (QC): 6 Groomin Oral Hygiene (QC): 6 Bathing(FIM): 6 Shower/Bathe Self (QC): 6 Upper Body Dressing(FIM): 7 Upper Body Dressing (QC): 6 Lower Body Dressing(FIM): 6 Lower Body Dressing (QC): 6 On/Off Footwear (QC): 6 Toileting(FIM): 6 Toileting Hygiene (QC): 6 Transfers (B,C,W/C) (FIM): 6 Toilet/Commode Transfer(FIM): 6 Toilet/Commode Transfer (QC): 6 Tub Transfer(FIM): 6 Shower Transfer(FIM): 6 Comprehension(FIM): 7 Expression (FIM): 7 Social Interaction(FIM): 7 Problem Solving(FIM): 5 Memory(FIM): 4 Additional Goals: 1-Demonstrate ADL Tasks, 2-Verbalize Understanding, 3- ImproveStrength/Araceli 1=Demonstrate adherence to instructed precautions during ADL tasks. 2=Patient will verbalize/demonstrate understanding of assistive devices/ modifications for ADL. 3=Patient will improve strength/tolerance for activity to enable patient to perform ADL's. OT Education/Plan Discharge Recommendations Plan/Recommendations: Continue POC Treatment Plan/Plan of Care Patient would benefit from OT for education, treatment and training to promote independence in ADL's, mobility, safety and/or upper extremity function for ADL' s. Plan of Care: ADL Retraining, Functional Mobility, Group Exercise/Act as Ind, UE Funct Exercise/Act, UE Neuromus Re-Ed/Coord, Visual/Perceptual Retrain Treatment Duration: Feb 24, 2018 Frequency: At least 5 of 7 days/Wk (IRF) Estimated Hrs Per Day: 1.5 hours per day Agreement: Yes Rehab Potential: Fair Time/GCodes Start Time: 09:00 Stop Time: 10:00 Total Time Billed (hr/min): 60 Billed Treatment Time 1 visit-ADL 4 (60 min) SHAY DAVIDSON Jan 17, 2018 10:02
--- NOTE | 2018-01-17 11:26 | PM & R (SOAP) Progress Note ---
Subjective This was a face to face visit with the patient. Date Seen by Provider: Jan 17, 2018 Time Seen by Provider: 07:35 Subjective/Events-last exam Patient was seen in his room this AM Patient min assist for transfers Accucheks noted Review of Systems Neurological: Weakness, Incoordination Objective Physician Exam Last Set of Vital Signs Vital Signs Date Time Temp Pulse Resp B/P (MAP) Pulse Ox O2 Delivery O2 Flow Rate FiO2 01/17/18 09:00 Room Air 01/17/18 05:04 97.3 64 18 126/72 (90) 96 Capillary Refill : I&O Intake and Output 01/17/18 00:00 Intake Total 1560 ml Output Total 1270 ml Balance 290 ml Intake Oral 1560 ml Output Urine Total 1270 ml General: Alert, Oriented X3, No Acute Distress HEENT: Mucous Memb Moist/[place], Other (RT SIDED VISUAL IMPAIRMENT) Neck: Supple, No JVD Heart: Regular Rate Abdomen: Normal Bowel Sounds, Soft, No Tenderness, Other ( DISTENDED) Extremities: No Edema Skin: Other (SMALL RASH OVER LEFT MID ABDOMEN) Neuro: Other (rT HIP FLEX 3+/5 rue 3+/5 lEFT ue 4+/5 lle 4/5) Psych/Mental Status: Mental Status NL Results Lab Data Laboratory Tests 01/14/18 15:06: Glucometer 228H 01/14/18 20:14: Glucometer 220H 01/15/18 06:18: Glucometer 115H 01/15/18 11:04: Glucometer 192H 01/15/18 16:10: Glucometer 119H 01/15/18 20:52: Glucometer 190H 01/16/18 01:32: Troponin I < 0.30 01/16/18 05:12: Glucometer 136H 01/16/18 10:57: Glucometer 149H 01/16/18 16:13: Glucometer 136H 01/16/18 20:59: Glucometer 204H 01/17/18 05:46: Glucometer 105 Assessment/Plan Assessment and Plan 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
--- NOTE | 2018-01-17 11:47 | Physical Therapy Daily Note ---
PT Daily Note-Current Subjective Pt awake in room watching tv when PT arrived. Pt agreed to participate in therapy. Pain Numeric Pain Scale: 0-No Pain Location: No Pain Reported Mental Status Patient Orientation: Person, Place, Situation Transfers Functional [place] Measure 0=Not Assessed/NA 4=Minimal Assistance 1=Total Assistance 5=Supervision or Setup 2=Maximal Assistance 6=Modified [place] 3=Moderate Assistance 7=Complete IndependenceIRFPAI Quality Coding Scale 6 Independent with activity with or without an assistive device 5 Patient requires set up or clean up by helper. Patient completes activity by themselves 4 Supervision or touching assist (CGA). [place] provide cues , steadying assist 3 The helper provides less than half the effort to complete the activity 2 The helper provides more than half the effort to complete the activity 1 Dependent. The helper does all the effort to complete an activity 7 Patient refused to complete or attempt activity 9 The patient did not perform the activity before the current illness or injury 88 Not attempted due to Medical conditions or safety concerns Transfers (B, C, W/C) (FIM): 4 Scootin Rollin Sit to/from Stand: 4 Bed to/from Chair: 4 Weight Bearing Right Lower Extremity: Right Full Weight Bearing Left Lower Extremity: Left Full Weight Bearing Gait Training Does the Patient Walk?: Yes Gait (FIM): 2 Distance (FIM): 9=054-98 ft Distance: 125'x2 Gait Level of Assist: 4 Gait Persons Needed: 1 Gait Assistive Device: FWW Pt demonstrates extensor thrust during gait with the right knee. Patient is cued to bring foot forward and to lean over top of extremity. Wheelchair Training Does the Pt Use a Wheelchair?: Yes Wheelchair (FIM): 2 Wheelchair Distance: 1=up to 49 ft Distance: 50' Wheelchair Level of Assist: 3 Type of Wheelchair: Manual Exercises Supine Ex: Bridging, Rolling, Scooting Supine Reps: 20 Standing: Sit to Stand Standing Reps: 15 Treatments bed mobility, transfers, ambulation, wheelchair mobility,patient was toileted once with min assist Assessment Current Status: Fair Progress Pt was able to ambulate for 125' x 2 with a FWW requiring CGA/[place] with cueing. Patients gait pattern will change throughout duration and will show an extensor thrust and will begin to drag his right foot with fatigue. Patient was able to perform sit to stand exercises with minimal cueing. He then worked on narrow [place] and Tandem stepping without as much cueing as the previous treatment. Patient made weight shifts more difficult by removing hands from parallel bars and relied on proprioception from ankles and hips. Patient finished treatment with bed/mat mobility. Patient will continue to benefit from neuromuscular education and gait training to improve overall function. PT Short Term Goals Short Term Goals Time Frame: Jan 20, 2018 Transfers (B,C,W/C) (FIM): 5 Gait (FIM): 5 Distance (FIM): 7=698-39 ft Gait Distance Comment: 100' Gait Level of Assist: 5 Gait Assistive Device: Handheld Assist Wheelchair Distance: 15' PT Custodial Goals Chicken And Fish Butcher Goals PT Chicken And Fish Butcher Goals Time Frame: Feb 03, 2018 Transfers (B,C,W/C) (FIM): 7 Sit to Lying (QC): 6 Lying-Sitting on Side/Bed(QC): 6 Sit to Stand (QC): 6 Rollin Roll Left to Right (QC): 6 Chair/Cog-jh-Zzhbu Xfer(QC): 6 Car Transfer (QC): 6 Does the Patient Walk: Yes Gait (FIM): 6 Gait distance (FIM): 3=150 ft Distance: 500' Walk 10 feet (QC): 6 Walk 10ft-Uneven Surface(QC): 5 Walk 50ft with 2 Turns (QC): 6 Walk 150 ft (QC): 6 Gait Level of Assist: 6 Gait Assistive Device: None, Cane Small Base Quad Stairs (FIM): 7 # of Steps: 12 1 Step (curb) (QC): 6 4 Steps (QC): 6 12 Steps (QC): 6 Stairs Level Of Assist: 7 Picking up an Object (QC): 6 PT Plan Problem List Problem List: Activity Tolerance, Functional Strength, Safety, Balance, Gait, Transfer, Bed Mobility Treatment/Plan Treatment Plan: Continue Plan of Care Treatment Plan: Bed Mobility, Concurrent Therapy, Education, Functional Activity Araceli, Functional Strength, Group Therapy, Gait, Safety, Therapeutic Exercise, Transfers Treatment Duration: Feb 03, 2018 Frequency: 6 times per week Estimated Hrs Per Day: 1.5 hours per day Patient and/or Family Agrees t: Yes Safety Risks/Education Patient Education: Gait Training, Transfer Techniques, Correct Positioning, W/ C Management, Safety Issues Teaching Recipient: Patient Teaching Methods: Demonstration, Discussion Response to Teaching: Verbalize Understanding, Reinforcement Needed Time/GCodes Time In: 1000 Time Out: 1100 Total Billed Treatment Time: 60 Total Billed Treatment 1 visit GT x2 - 30' EX - 15' NM - 15' BETTY PARMAR PT Jan 17, 2018 11:47
--- NOTE | 2018-01-17 14:33 | Speech Therapy Daily Note ---
Speech Daily Progress Note Subjective Date Seen by Provider: Jan 17, 2018 Time Seen by Provider: 08:15 Patient awake and able to participate. Objective Patient was seen this am for cognitive therapy with focus on recall of verbally presented information. Patient was able to complete linguistic tasks of recall of information at 60% given extended process time and mod to max cues. Repetitions at 25% Assessment Assessment Current Status: Fair Progress Treatment Plan Continue Plan of Care Communication Comprehension: 6 Expression: 7 Social Cognition Social Interaction: 7 Problem Solvin Memory: 2 Speech Short Term Goals Short Term Goals Short Term Goals Patient will complete auditory/visual linguistic/memory tasks at 80% with min/ mod assist. Patient will complete auditory/visual problem solving tasks at 80% with min/mod assist. Time Frame-ST week Comprehension: 6 Expression: 7 Social Interaction: 7 Problem Solvin Memory: 3 Speech Fdc Goals Middleware Systems Architect Goals Patient will display functional cognition for safety and independence for return to home with min assist. Comprehension: 7 Expression: 7 Social Interaction: 7 Problem Solvin Memory: 4 Speech-Plan Patient/Family Goals Patient/Family Goals: Patient plans to return home with significant other. Treatment Plan Speech Therapy Treatment Plan: Continue Plan of Care Patient will continue skilled ST to increase memory and problem solving skills for safety and independence. Treatment Duration: Jan 25, 2018 Frequency: 5 times per week Estimated Hrs Per Day: .5 hour per day Rehab Potential: Fair Pt/Family Agrees to Plan: Yes Safety Risks/Education Teaching Recipient: Patient Teaching Methods: Discussion Response to Teaching: Verbalize Understanding Time Speech Therapy Time In: 08:15 Speech Therapy Time Out: 08:45 Total Billed Time: 30 Billed Treatment Time 1, [facility] Jan 17, 2018 14:33
--- NOTE | 2018-01-17 14:46 | Therapy Group Daily Note ---
Therapy Daily Group Note Patient Education Topic Other List Below (MEMORY) Exercises LE Seated Exercise, UE Exercise Other/Notes Pt transported via w/c to OT/PT group. Group consisted of introductions (name, place living, favorite snowtime memory), socialization, UE/LE seated exercises, memory education, memory strategies/activity and ARU description/expectations. Pt was able to introduce self and place living, unable to say snowtime memory. Pt actively listened to peers during introduction. Pt was able to complete UE/ LE seated exercises. Pt contributed to discussions and educational topics. Verbalized understanding of memory and ARU topics. 1 out of 18 for matching on memory activity. After therapy, pt lying in bed with safety measures in place. Call light/phone in reach. All needs met in room. Start Time: 13:00 Stop Time: 14:10 Total Billed Treatment Time: 70 Total Billed Treatment 1-GRP SHAY DAVIDSON Jan 17, 2018 14:46
[2018-01-17 17:56] VITALS: BP 135/80
[2018-01-17] MEDS: inSUlin DETERMIR 1 UNIT/0.01 ML (LEVEMIR) CHARGE PER UNIT SQ SCH (20:56)
[2018-01-18 05:03] VITALS: BP 124/79
[2018-01-18] MEDS: inSUlin ASPART (NovoLOG) 1 UNIT/0.01 ML (CHARGE PER UNIT) SC SCH ×4 (05:37→21:16)
[2018-01-18] MEDS: amLODIPine 5 MG (NORVASC) TAB PO SCH (07:59)
[2018-01-18] MEDS: guaiFENesin (MUCINEX) 600 MG TAB PO SCH ×2 (07:59→21:16)
[2018-01-18] MEDS: NICOTINE 21 MG (NICODERM) PATCH TD SCH (07:59)
[2018-01-18] MEDS: ASPIRIN E.C. 81 MG (ECOTRIN) TAB PO SCH (08:00)
[2018-01-18] MEDS: BISACODYL 10 MG SUPP (DULCOLAX) PR SCH ×3 (08:00→21:16)
[2018-01-18] MEDS: SENNA W/DOCUSATE (SENOKOT S) TABLET PO SCH ×2 (08:00→21:16)
[2018-01-18] MEDS: NICOTINE PATCH REMOVAL TP SCH (08:00)
[2018-01-18] MEDS: DOCUSATE SODIUM 100 MG (COLACE) CAP PO SCH ×2 (08:00→21:15)
[2018-01-18] MEDS: POLYETHYLENE GLYCOL 17 GM (MIRALAX) PACK PO SCH (08:00)
[2018-01-18] MEDS: CARBAM PEROX/GLYC/PROP 15 ML DROPS (DEBROX) EACH EAR SCH ×4 (08:01→21:15)
--- NOTE | 2018-01-18 08:14 | Progress Note (SOAP) ---
Subjective Time Seen by a Provider: 08:13 Subjective/Events-last exam Patient constipated. Patient on bowel movement today. Patient voices no complaints. Objective Exam Vital Signs Date Time Temp Pulse Resp B/P (MAP) Pulse Ox O2 Delivery O2 Flow Rate FiO2 01/18/18 05:03 98.7 70 18 124/79 (94) 96 Room Air 01/17/18 21:59 Room Air 01/17/18 19:35 Room Air 01/17/18 17:56 98.0 73 18 135/80 (98) 96 Room Air 01/17/18 09:00 Room Air I & O 01/18/18 07:00 Intake Total 1400 ml Output Total 850 ml Balance 550 ml Capillary Refill : General Appearance: No Apparent Distress, WD/WN Results Lab Laboratory Tests 01/17/18 11:55: Glucometer 121H 01/17/18 16:23: Glucometer 99 01/17/18 20:37: Glucometer 110 01/18/18 05:31: Glucometer 112H Assessment/Plan Assessment/Plan Assess & Plan/Chief Complaint CVA. Diabetes. Hypertension. Non-small cell lung cancer. Right renal mass. Tobaccoism. History of methadone use. Constipation. MARION on CPAP. Severe hypertensive crisis. Small castellanos aneurysm. . 01/16/18. CVA. Diabetes. Hypertension. Non-small cell lung cancer. GI upset. Severe hypertensive crisis. Small castellanos aneurysm. . 01/17/18. CVA. Diabetes is doing good. Hypertension. Non-small cell lung cancer. GI upset better. Severe hypertensive crisis history. Small castellanos aneurysm. . 01/18/18. CVA. Diabetes good. Hypertension good. Non-small cell lung cancer. History of severe hypertensive crisis. small castellanos aneurysm. Patient still needs better r gait Clinical Quality Measures DVT/VTE Risk/Contraindication: Risk Factor Score Per Nursin RFS Level Per Nursing on Admit: 4+=Very High XAVIER KRISHNA DO Jan 18, 2018 08:14
--- NOTE | 2018-01-18 10:09 | Speech Therapy Daily Note ---
Speech Daily Progress Note Subjective Date Seen by Provider: Jan 18, 2018 Time Seen by Provider: 09:30 Patient alert and pleasant. Objective Patient exhibited increased memory today. Assessment Assessment Current Status: Good Progress Treatment Plan Continue Plan of Care Communication Comprehension: 6 Expression: 7 Social Cognition Social Interaction: 7 Problem Solvin Memory: 2 Speech Short Term Goals Short Term Goals Short Term Goals Patient will complete auditory/visual linguistic/memory tasks at 80% with min/ mod assist. Patient will complete auditory/visual problem solving tasks at 80% with min/mod assist. Time Frame-ST week Comprehension: 6 Expression: 7 Social Interaction: 7 Problem Solvin Memory: 3 Speech [employer] Tuber Machine Operator Goals Shelter Goals Patient will display functional cognition for safety and independence for return to home with min assist. Comprehension: 7 Expression: 7 Social Interaction: 7 Problem Solvin Memory: 4 Speech-Plan Patient/Family Goals Patient/Family Goals: Patient plans to return home with significant other. Treatment Plan Speech Therapy Treatment Plan: Continue Plan of Care Patient skills for memory are progressing. Treatment Duration: Jan 25, 2018 Frequency: 5 times per week Estimated Hrs Per Day: .5 hour per day Rehab Potential: Fair Pt/Family Agrees to Plan: Yes Safety Risks/Education Teaching Recipient: Patient Teaching Methods: Discussion Response to Teaching: Verbalize Understanding Education Topics Provided: Memory strategies. Time Speech Therapy Time In: 09:30 Speech Therapy Time Out: 10:00 Total Billed Time: 30 Billed Treatment Time 1ADAM BETHANIA ST Jan 18, 2018 10:09
--- NOTE | 2018-01-18 11:00 | Physical Therapy Daily Note ---
PT Daily Note-Current Subjective Patient in bed pre tx, agrees to PT, no complaints of pain. Patient needs to use the restroom to urinate and he does so with CGA. Appearance Patient in wheelchair post tx with nurse call, rosy, all needs met. Mental Status Patient Orientation: Person, Place, Situation Transfers Functional [place] Measure 0=Not Assessed/NA 4=Minimal Assistance 1=Total Assistance 5=Supervision or Setup 2=Maximal Assistance 6=Modified [place] 3=Moderate Assistance 7=Complete IndependenceIRFPAI Quality Coding Scale 6 Independent with activity with or without an assistive device 5 Patient requires set up or clean up by helper. Patient completes activity by themselves 4 Supervision or touching assist (CGA). [place] provide cues , steadying assist 3 The helper provides less than half the effort to complete the activity 2 The helper provides more than half the effort to complete the activity 1 Dependent. The helper does all the effort to complete an activity 7 Patient refused to complete or attempt activity 9 The patient did not perform the activity before the current illness or injury 88 Not attempted due to Medical conditions or safety concerns Transfers (B, C, W/C) (FIM): 4 Scootin Rollin Supine to/from Sit: 5 Sit to/from Stand: 4 Bed to/from Chair: 4 CGA for sit to stand and transfers but patient needs cues for positioning and safety due to right neglect Weight Bearing Right Lower Extremity: Right Full Weight Bearing Left Lower Extremity: Left Full Weight Bearing Gait Training Gait (FIM): 4 Distance: 100'x2, 200'x2 Gait Level of Assist: 4 Gait Persons Needed: 1 Gait Assistive Device: FWW CGA, patient is much better and ambulating slow and careful, uncoordinated steps with right leg, cues for obstacles on the right side Exercises Standing: Hip Abduction, Heel/toe raises, Marching, Mini squats, Step-ups Standing Reps: 20 NuStep Minutes: 15 NuStep Workload: 5 Treatments bed mobility and transfers, ambulation, functional strengthening Assessment Current Status: Fair Progress better ambulation and transfers PT Short Term Goals Short Term Goals Time Frame: Jan 20, 2018 Transfers (B,C,W/C) (FIM): 5 Gait (FIM): 5 Distance (FIM): 6=783-40 ft Gait Distance Comment: 100' Gait Level of Assist: 5 Gait Assistive Device: Handheld Assist Wheelchair Distance: 50' PT Retail Marketing Specialist Goals Retail Marketing Specialist Goals PT Mcc Goals Time Frame: Feb 03, 2018 Transfers (B,C,W/C) (FIM): 7 Sit to Lying (QC): 6 Lying-Sitting on Side/Bed(QC): 6 Sit to Stand (QC): 6 Rollin Roll Left to Right (QC): 6 Chair/Dfj-fm-Tngqs Xfer(QC): 6 Car Transfer (QC): 6 Does the Patient Walk: Yes Gait (FIM): 6 Gait distance (FIM): 3=150 ft Distance: 500' Walk 10 feet (QC): 6 Walk 10ft-Uneven Surface(QC): 5 Walk 50ft with 2 Turns (QC): 6 Walk 150 ft (QC): 6 Gait Level of Assist: 6 Gait Assistive Device: None, Cane Small Base Quad Stairs (FIM): 7 # of Steps: 12 1 Step (curb) (QC): 6 4 Steps (QC): 6 12 Steps (QC): 6 Stairs Level Of Assist: 7 Picking up an Object (QC): 6 PT Plan Problem List Problem List: Activity Tolerance, Functional Strength, Safety, Balance, Gait, Transfer, Bed Mobility Treatment/Plan Treatment Plan: Continue Plan of Care Treatment Plan: Bed Mobility, Concurrent Therapy, Education, Functional Activity Araceli, Functional Strength, Group Therapy, Gait, Safety, Therapeutic Exercise, Transfers Treatment Duration: Feb 03, 2018 Frequency: 6 times per week Estimated Hrs Per Day: 1.5 hours per day Patient and/or Family Agrees t: Yes Safety Risks/Education Patient Education: Gait Training, Transfer Techniques, Correct Positioning, Safety Issues Teaching Recipient: Patient Teaching Methods: Demonstration, Discussion Response to Teaching: Reinforcement Needed Time/GCodes Time In: 1000 Time Out: 1100 Total Billed Treatment Time: 60 Total Billed Treatment 1 visit GT 30' EX 15' FA 15' BETTY PARMAR PT Jan 18, 2018 11:00
--- NOTE | 2018-01-18 12:14 | Occupational Ther Daily Note ---
OT Current Status-Daily Note Subjective Pt alert, sitting in w/c. Took over care from PT. Pt agrees to therapy. No c/ o pain at this time. Mental Status/Objective Patient Orientation: Person, Place, Time, Situation Functional [place] Measure 0=Not Assessed/NA 4=Minimal Assistance 1=Total Assistance 5=Supervision or Setup 2=Maximal Assistance 6=Modified [place] 3=Moderate Assistance 7=Complete [place] ADL-Treatment Pt stood at toilet with CGA to urinate, 2x's during therapy. Pt then maneuvered w/c to sink and completed own grooming. Pt ordered food for lunch. After therapy, pt lying in bed with call light/phone in reach. All needs met in room. Functional [place] Measure 0=Not Assessed/NA 4=Minimal Assistance 1=Total Assistance 5=Supervision or Setup 2=Maximal Assistance 6=Modified [place] 3=Moderate Assistance 7=Complete IndependenceIRFPAI Quality Coding Scale 6 Independent with activity with or without an assistive device 5 Patient requires set up or clean up by helper. Patient completes activity by themselves 4 Supervision or touching assist (CGA). [place] provide cues , steadying assist 3 The helper provides less than half the effort to complete the activity 2 The helper provides more than half the effort to complete the activity 1 Dependent. The helper does all the effort to complete an activity 7 Patient refused to complete or attempt activity 9 The patient did not perform the activity before the current illness or injury 88 Not attempted due to Medical conditions or safety concerns Grooming (FIM): 6 Oral Hygiene (QC): 6 Other Treatment Pt completed neuromuscular tasks to increase visual perceptual, motor control/ coordination and strengthening. Dowel robert with 3# attached exercises, 3 sets 10 reps. Resistive clothes pins completed with each hand, pt able to open each clothespin, assist needed with R UE to coordination to place clothespins in designated area. Worked pinch and access control officer with hard resistance theraputty to increase sensation and coordination. Pt able to grasp large diameter marker in tripod grasp to complete spiral, eyes and hands fatigued quickly. Pt was able to complete a spiral though unable to follow designated line. OT Short Term Goals Short Term Goals Time Frame: Jan 27, 2018 Eating(FIM): 5 Grooming(FIM): 5 Bathing(FIM): 4 Upper Body Dressing(FIM): 5 Lower Body Dressing(FIM): 4 Toileting(FIM): 4 Transfers (B,C,W/C) (FIM): 5 Toilet/Commode Transfer(FIM): 5 Tub Transfer(FIM): 5 Shower Transfer(FIM): 5 Comprehension(FIM): 6 Expression(FIM): 7 Social Interaction(FIM): 7 Problem Solving(FIM): 4 Memory(FIM): 3 Additional Short Term Goals: 1-Demonstrate ADL Tasks, 2-Verbalize Understanding , 3-ImproveStrength/Araceli 1=Demonstrate adherence to instructed precautions during ADL tasks. 2=Patient will verbalize/demonstrate understanding of assistive devices/ modifications for ADL. 3=Patient will improve strength/tolerance for activity to enable patient to perform ADL's. OT Mcc Goals Educational Program Assistant Goals Time Frame: Feb 10, 2018 Eating (FIM): 7 Eating (QC): 6 Groomin Oral Hygiene (QC): 6 Bathing(FIM): 6 Shower/Bathe Self (QC): 6 Upper Body Dressing(FIM): 7 Upper Body Dressing (QC): 6 Lower Body Dressing(FIM): 6 Lower Body Dressing (QC): 6 On/Off Footwear (QC): 6 Toileting(FIM): 6 Toileting Hygiene (QC): 6 Transfers (B,C,W/C) (FIM): 6 Toilet/Commode Transfer(FIM): 6 Toilet/Commode Transfer (QC): 6 Tub Transfer(FIM): 6 Shower Transfer(FIM): 6 Comprehension(FIM): 7 Expression (FIM): 7 Social Interaction(FIM): 7 Problem Solving(FIM): 5 Memory(FIM): 4 Additional Goals: 1-Demonstrate ADL Tasks, 2-Verbalize Understanding, 3- ImproveStrength/Araceli 1=Demonstrate adherence to instructed precautions during ADL tasks. 2=Patient will verbalize/demonstrate understanding of assistive devices/ modifications for ADL. 3=Patient will improve strength/tolerance for activity to enable patient to perform ADL's. OT Education/Plan Discharge Recommendations Plan/Recommendations: Continue POC Treatment Plan/Plan of Care Patient would benefit from OT for education, treatment and training to promote independence in ADL's, mobility, safety and/or upper extremity function for ADL' s. Plan of Care: ADL Retraining, Functional Mobility, Group Exercise/Act as Ind, UE Funct Exercise/Act, UE Neuromus Re-Ed/Coord, Visual/Perceptual Retrain Treatment Duration: Feb 24, 2018 Frequency: At least 5 of 7 days/Wk (IRF) Estimated Hrs Per Day: 1.5 hours per day Agreement: Yes Rehab Potential: Fair Time/GCodes Start Time: 11:00 Stop Time: 12:30 Total Time Billed (hr/min): 90 Billed Treatment Time 1 visit-ADL 3 (50 min) NM 3 (40 min) SHAY DAVIDSON Jan 18, 2018 12:14
--- NOTE | 2018-01-18 12:59 | PM & R (SOAP) Progress Note ---
Subjective This was a face to face visit with the patient. Date Seen by Provider: Jan 18, 2018 Time Seen by Provider: 07:30 Subjective/Events-last exam Patient was seen in his room this AM Patient CGA for transfers RN indicates that patient dosent want N Patch anymore Date Identified: Jan 18, 2018 Time Identified: 12:00 Medication Intervention: Nicotine patch d/cd Review of Systems Neurological: Weakness, Incoordination Objective Physician Exam Last Set of Vital Signs Vital Signs Date Time Temp Pulse Resp B/P (MAP) Pulse Ox O2 Delivery O2 Flow Rate FiO2 01/18/18 09:00 Room Air 01/18/18 05:03 98.7 70 18 124/79 (94) 96 Capillary Refill : I&O Intake and Output 01/18/18 00:00 Intake Total 1400 ml Output Total 850 ml Balance 550 ml Intake Oral 1400 ml Output Urine Total 850 ml General: Alert, Oriented X3, No Acute Distress HEENT: Mucous Memb Moist/[place], Other (RT SIDED VISUAL IMPAIRMENT) Neck: Supple, No JVD Heart: Regular Rate Abdomen: Normal Bowel Sounds, Soft, No Tenderness, Other ( DISTENDED) Extremities: No Edema Skin: Other (SMALL RASH OVER LEFT MID ABDOMEN) Neuro: Other (rT HIP FLEX 3+/5 rue 3+/5 lEFT ue 4+/5 lle 4/5) Psych/Mental Status: Mental Status NL Results Lab Data Laboratory Tests 01/15/18 16:10: Glucometer 119H 01/15/18 20:52: Glucometer 190H 01/16/18 01:32: Troponin I < 0.30 01/16/18 05:12: Glucometer 136H 01/16/18 10:57: Glucometer 149H 01/16/18 16:13: Glucometer 136H 01/16/18 20:59: Glucometer 204H 01/17/18 05:46: Glucometer 105 01/17/18 11:55: Glucometer 121H 01/17/18 16:23: Glucometer 99 01/17/18 20:37: Glucometer 110 01/18/18 05:31: Glucometer 112H 01/18/18 11:00: Glucometer 109 Assessment/Plan Assessment and Plan Left occipital stroke with rt sided neglect and weakness and discordination rt New onset DM controlled HTN controlled Non-small cell lung CA to have f/u on an outpatient basis Tobaccoism currently abstaining N Patch d/cd as per patients request Constipation improved Urticaria resolved with d/c of patch and steroid usage HLP MARION on CPap Plan Continue PT/OT/ST Team Conference held yesterday-see report for full functional update and POC and ELOS Co-Morbidities that are continuing to impact the rehab process: (include details ) SYDNEE GUAN MD Jan 18, 2018 12:59
--- NOTE | 2018-01-18 14:49 | Physical Therapy Daily Note ---
PT Daily Note-Current Subjective Agreeable to PT. No complaints. Transfers Functional [place] Measure 0=Not Assessed/NA 4=Minimal Assistance 1=Total Assistance 5=Supervision or Setup 2=Maximal Assistance 6=Modified [place] 3=Moderate Assistance 7=Complete IndependenceIRFPAI Quality Coding Scale 6 Independent with activity with or without an assistive device 5 Patient requires set up or clean up by helper. Patient completes activity by themselves 4 Supervision or touching assist (CGA). [place] provide cues , steadying assist 3 The helper provides less than half the effort to complete the activity 2 The helper provides more than half the effort to complete the activity 1 Dependent. The helper does all the effort to complete an activity 7 Patient refused to complete or attempt activity 9 The patient did not perform the activity before the current illness or injury 88 Not attempted due to Medical conditions or safety concerns Transfers (B, C, W/C) (FIM): 4 (CGA with sit to stand transfers. ) Supine to/from Sit: 6 Sit to/from Stand: 4 (CGA and skilleed cues 75% of the time for hand placement. ) Multiple sit to stand transfers throughout course of therapy. Toilet transfer with CGA as well. Weight Bearing Right Lower Extremity: Right Full Weight Bearing Left Lower Extremity: Left Full Weight Bearing Gait Training Does the Patient Walk?: Yes Gait (FIM): 2 Distance (FIM): 7=785-23 ft Distance: 125 ft x 5 reps Gait Assistive Device: FWW CGA with gait for safety; occas assist to keep left hand in place on the walker. Narrow [place] at times and uncoordinated movement at times with turning. Pt able to walk into his bathroom with fWW with CGA and stand at the sink to wash his hands with CGa. Assessment Current Status: Good Progress Gait is improving, although still unsteady at times. Narrow [place] impairs safety as well at times; also presents with right neglect. PT Short Term Goals Short Term Goals Time Frame: Jan 20, 2018 Transfers (B,C,W/C) (FIM): 5 Gait (FIM): 5 Distance (FIM): 6=235-50 ft Gait Distance Comment: 100' Gait Level of Assist: 5 Gait Assistive Device: Handheld Assist Wheelchair Distance: 50' PT Fci Goals Treasurer Goals PT Treasurer Goals Time Frame: Feb 03, 2018 Transfers (B,C,W/C) (FIM): 7 Sit to Lying (QC): 6 Lying-Sitting on Side/Bed(QC): 6 Sit to Stand (QC): 6 Rollin Roll Left to Right (QC): 6 Chair/Sci-rq-Mpbad Xfer(QC): 6 Car Transfer (QC): 6 Does the Patient Walk: Yes Gait (FIM): 6 Gait distance (FIM): 3=150 ft Distance: 500' Walk 10 feet (QC): 6 Walk 10ft-Uneven Surface(QC): 5 Walk 50ft with 2 Turns (QC): 6 Walk 150 ft (QC): 6 Gait Level of Assist: 6 Gait Assistive Device: None, Cane Small Base Quad Stairs (FIM): 7 # of Steps: 12 1 Step (curb) (QC): 6 4 Steps (QC): 6 12 Steps (QC): 6 Stairs Level Of Assist: 7 Picking up an Object (QC): 6 PT Plan Problem List Problem List: Activity Tolerance, Functional Strength, Safety, Balance, Gait, Transfer, Bed Mobility Treatment/Plan Treatment Plan: Continue Plan of Care Treatment Plan: Bed Mobility, Concurrent Therapy, Education, Functional Activity Araceli, Functional Strength, Group Therapy, Gait, Safety, Therapeutic Exercise, Transfers Treatment Duration: Feb 03, 2018 Frequency: 6 times per week Estimated Hrs Per Day: 1.5 hours per day Patient and/or Family Agrees t: Yes Safety Risks/Education Patient Education: Transfer Techniques, Safety Issues Teaching Recipient: Patient Teaching Methods: Demonstration, Discussion Response to Teaching: Reinforcement Needed Time/GCodes Time In: 1300 Time Out: 1330 Total Billed Treatment Time: 30 Total Billed Treatment visit GT 30 SHAY COTTO PT Jan 18, 2018 14:49
[2018-01-18 17:38] VITALS: BP 125/78
[2018-01-18] MEDS: inSUlin DETERMIR 1 UNIT/0.01 ML (LEVEMIR) CHARGE PER UNIT SQ SCH (20:34)
[2018-01-19 05:02] VITALS: BP 126/84
[2018-01-19] MEDS: inSUlin ASPART (NovoLOG) 1 UNIT/0.01 ML (CHARGE PER UNIT) SC SCH ×4 (06:08→22:00)
--- NOTE | 2018-01-19 07:54 | PM & R (SOAP) Progress Note ---
Subjective This was a face to face visit with the patient. Date Seen by Provider: Jan 19, 2018 Time Seen by Provider: 07:35 Subjective/Events-last exam Patient was seen in his room this AM Patient Min assist for transfers Objective Physician Exam Last Set of Vital Signs Vital Signs Date Time Temp Pulse Resp B/P (MAP) Pulse Ox O2 Delivery O2 Flow Rate FiO2 01/19/18 05:02 97.6 66 18 126/84 (98) 98 Room Air Capillary Refill : I&O Intake and Output 01/19/18 00:00 Intake Total 1800 ml Output Total 1250 ml Balance 550 ml Intake Oral 1800 ml Output Urine Total 1250 ml # Bowel Movements 1 General: Alert, Oriented X3, No Acute Distress HEENT: Mucous Memb Moist/[place], Other (RT SIDED VISUAL IMPAIRMENT) Neck: Supple, No JVD Heart: Regular Rate Abdomen: Normal Bowel Sounds, Soft, No Tenderness, Other ( DISTENDED) Extremities: No Edema Skin: Other (SMALL RASH OVER LEFT MID ABDOMEN) Neuro: Other (rT HIP FLEX 3+/5 rue 3+/5 lEFT ue 4+/5 lle 4/5) Psych/Mental Status: Mental Status NL Results Lab Data Laboratory Tests 01/16/18 10:57: Glucometer 149H 01/16/18 16:13: Glucometer 136H 01/16/18 20:59: Glucometer 204H 01/17/18 05:46: Glucometer 105 01/17/18 11:55: Glucometer 121H 01/17/18 16:23: Glucometer 99 01/17/18 20:37: Glucometer 110 01/18/18 05:31: Glucometer 112H 01/18/18 11:00: Glucometer 109 01/18/18 16:44: Glucometer 156H 01/18/18 20:31: Glucometer 116H 01/19/18 04:24: Glucometer 98 Assessment/Plan Assessment and Plan Left occipital stroke with RT sided neglect and weakness and discoordination rt New onset DM controlled HTN controlled Nonsmall celll lung CA to have f/u as an outpatient Tobaccoism abstaining Constipation improved Urticaria resolved with course of Steroid HLP MARION on CPAP Plan Continue PT/OT/ST Review care and POC with Team next week Co-Morbidities that are continuing to impact the rehab process: (include details ) SYDNEE GUAN MD Jan 19, 2018 07:54
[2018-01-19] MEDS: ASPIRIN E.C. 81 MG (ECOTRIN) TAB PO SCH (08:02)
[2018-01-19] MEDS: guaiFENesin (MUCINEX) 600 MG TAB PO SCH ×2 (08:02→21:22)
[2018-01-19] MEDS: SENNA W/DOCUSATE (SENOKOT S) TABLET PO SCH ×2 (08:03→21:21)
[2018-01-19] MEDS: BISACODYL 10 MG SUPP (DULCOLAX) PR SCH ×2 (08:03→21:21)
[2018-01-19] MEDS: amLODIPine 5 MG (NORVASC) TAB PO SCH (08:03)
[2018-01-19] MEDS: DOCUSATE SODIUM 100 MG (COLACE) CAP PO SCH ×2 (08:04→21:21)
[2018-01-19] MEDS: CARBAM PEROX/GLYC/PROP 15 ML DROPS (DEBROX) EACH EAR SCH ×4 (08:04→21:22)
--- NOTE | 2018-01-19 08:18 | Progress Note (SOAP) ---
Subjective Time Seen by a Provider: 08:15 Subjective/Events-last exam Patient continues to improve. Blood pressure and sugars stable. Objective Exam Vital Signs Date Time Temp Pulse Resp B/P (MAP) Pulse Ox O2 Delivery O2 Flow Rate FiO2 01/19/18 05:02 97.6 66 18 126/84 (98) 98 Room Air 01/18/18 21:32 Room Air 01/18/18 20:50 Room Air 01/18/18 17:38 98.1 66 18 125/78 (94) 98 Room Air 01/18/18 09:00 Room Air I & O 01/19/18 07:00 Intake Total 1600 ml Output Total 1750 ml Balance -150 ml Capillary Refill : General Appearance: No Apparent Distress, WD/WN Results Lab Laboratory Tests 01/18/18 11:00: Glucometer 109 01/18/18 16:44: Glucometer 156H 01/18/18 20:31: Glucometer 116H 01/19/18 04:24: Glucometer 98 Assessment/Plan Assessment/Plan Assess & Plan/Chief Complaint CVA. Diabetes. Hypertension. Non-small cell lung cancer. Right renal mass. Tobaccoism. History of methadone use. Constipation. MARION on CPAP. Severe hypertensive crisis. Small castellanos aneurysm. . 01/16/18. CVA. Diabetes. Hypertension. Non-small cell lung cancer. GI upset. Severe hypertensive crisis. Small castellanos aneurysm. . 01/17/18. CVA. Diabetes is doing good. Hypertension. Non-small cell lung cancer. GI upset better. Severe hypertensive crisis history. Small castellanos aneurysm. . 01/18/18. CVA. Diabetes good. Hypertension good. Non-small cell lung cancer. History of severe hypertensive crisis. small castellanos aneurysm. Patient still needs better r gait. . 01/19/18. CVA. Diabetes good. Hypertension good. Non-small cell lung cancer. History of severe hypertensive crisis. Small castellanos aneurysm. Patient continues to improve Clinical Quality Measures DVT/VTE Risk/Contraindication: Risk Factor Score Per Nursin RFS Level Per Nursing on Admit: 4+=Very High XAVIER KRISHNA DO Jan 19, 2018 08:18
--- NOTE | 2018-01-19 08:59 | Physical Therapy Daily Note ---
PT Daily Note-Current Subjective Patient in bed pre tx, agrees to PT, no complaints of pain. Patient needs to get dressed and use the restroom, which he puts on shirt with SBA and goes to the bathroom and washes hands with CGA. Appearance Patient sitting EOB post tx, talking on phone, has nurse call, tray, all needs met. Mental Status Patient Orientation: Person, Place, Situation Transfers Functional [place] Measure 0=Not Assessed/NA 4=Minimal Assistance 1=Total Assistance 5=Supervision or Setup 2=Maximal Assistance 6=Modified [place] 3=Moderate Assistance 7=Complete IndependenceIRFPAI Quality Coding Scale 6 Independent with activity with or without an assistive device 5 Patient requires set up or clean up by helper. Patient completes activity by themselves 4 Supervision or touching assist (CGA). [place] provide cues , steadying assist 3 The helper provides less than half the effort to complete the activity 2 The helper provides more than half the effort to complete the activity 1 Dependent. The helper does all the effort to complete an activity 7 Patient refused to complete or attempt activity 9 The patient did not perform the activity before the current illness or injury 88 Not attempted due to Medical conditions or safety concerns Transfers (B, C, W/C) (FIM): 4 Scootin Rollin Supine to/from Sit: 6 Sit to/from Stand: 4 Bed to/from Chair: 4 CGA for sit to stand and transfers, cues for hand placement especially on the right side Weight Bearing Right Lower Extremity: Right Full Weight Bearing Left Lower Extremity: Left Full Weight Bearing Gait Training Gait (FIM): 4 Distance: 200'x4 Gait Level of Assist: 4 Gait Persons Needed: 1 Gait Assistive Device: FWW Min assist for occasional help with balance, cues for obstacles on the right side Exercises Standing: Heel/toe raises, Step-ups Standing Reps: 20 sidestepping in parallel bars 8'x8, LAQ alternating for 5 min with 2# ankle weights Treatments bed mobility and transfers, ambulation, functional strengthening, dressing and toileting Assessment Current Status: Fair Progress slow but steady improvement in balance and ambulation PT Short Term Goals Short Term Goals Time Frame: Jan 20, 2018 Transfers (B,C,W/C) (FIM): 5 Gait (FIM): 5 Distance (FIM): 2=985-72 ft Gait Distance Comment: 100' Gait Level of Assist: 5 Gait Assistive Device: Handheld Assist Wheelchair Distance: 50' PT Retirement Goals Retirement Goals PT Propeller Layout Worker Goals Time Frame: Feb 03, 2018 Transfers (B,C,W/C) (FIM): 7 Sit to Lying (QC): 6 Lying-Sitting on Side/Bed(QC): 6 Sit to Stand (QC): 6 Rollin Roll Left to Right (QC): 6 Chair/Pej-pj-Eptvl Xfer(QC): 6 Car Transfer (QC): 6 Does the Patient Walk: Yes Gait (FIM): 6 Gait distance (FIM): 3=150 ft Distance: 500' Walk 10 feet (QC): 6 Walk 10ft-Uneven Surface(QC): 5 Walk 50ft with 2 Turns (QC): 6 Walk 150 ft (QC): 6 Gait Level of Assist: 6 Gait Assistive Device: None, Cane Small Base Quad Stairs (FIM): 7 # of Steps: 12 1 Step (curb) (QC): 6 4 Steps (QC): 6 12 Steps (QC): 6 Stairs Level Of Assist: 7 Picking up an Object (QC): 6 PT Plan Problem List Problem List: Activity Tolerance, Functional Strength, Safety, Balance, Gait, Transfer Treatment/Plan Treatment Plan: Continue Plan of Care Treatment Plan: Bed Mobility, Concurrent Therapy, Education, Functional Activity Araceli, Functional Strength, Group Therapy, Gait, Safety, Therapeutic Exercise, Transfers Treatment Duration: Feb 03, 2018 Frequency: 6 times per week Estimated Hrs Per Day: 1.5 hours per day Patient and/or Family Agrees t: Yes Safety Risks/Education Patient Education: Gait Training, Transfer Techniques, Correct Positioning, Safety Issues Teaching Recipient: Patient Teaching Methods: Demonstration, Discussion Response to Teaching: Reinforcement Needed Time/GCodes Time In: 0800 Time Out: 0900 Total Billed Treatment Time: 60 Total Billed Treatment 1 visit GT 30' EX 15' FA 15' BETTY PARMAR PT Jan 19, 2018 08:59
--- NOTE | 2018-01-19 10:55 | Speech Therapy Daily Note ---
Speech Daily Progress Note Subjective Date Seen by Provider: Jan 19, 2018 Time Seen by Provider: 03:00 Patient was sitting up in bed, alert and participated well. Objective Patient completed simple problem solving, convergent: inferences. Patient completed Level 1 with 70% accuracy with min to mod repetitions and verbal cues. Treatment Plan Continue Plan of Care Communication Comprehension: 6 Expression: 7 Social Cognition Social Interaction: 7 Problem Solvin Memory: 2 Speech Short Term Goals Short Term Goals Short Term Goals Patient will complete auditory/visual linguistic/memory tasks at 80% with min/ mod assist. Patient will complete auditory/visual problem solving tasks at 80% with min/mod assist. Time Frame-ST week Comprehension: 6 Expression: 7 Social Interaction: 7 Problem Solvin Memory: 3 Speech Prison Goals Bagging Machine Operator Goals Patient will display functional cognition for safety and independence for return to home with min assist. Comprehension: 7 Expression: 7 Social Interaction: 7 Problem Solvin Memory: 4 Speech-Plan Treatment Plan Speech Therapy Treatment Plan: Continue Plan of Care Patient seen this am for cognitive/problem solving therapy with ST. Treatment Duration: Jan 25, 2018 Frequency: 5 times per week Estimated Hrs Per Day: .5 hour per day Rehab Potential: Fair Pt/Family Agrees to Plan: Yes Safety Risks/Education Teaching Recipient: Patient Teaching Methods: Discussion Response to Teaching: Verbalize Understanding Time Speech Therapy Time In: 09:30 Speech Therapy Time Out: 10:00 Total Billed Time: 30 Billed Treatment Time 1ADAM BETHANIA ST Jan 19, 2018 10:54
--- NOTE | 2018-01-19 11:40 | Speech Therapy Daily Note ---
Speech Daily Progress Note Subjective Date Seen by Provider: Jan 19, 2018 Time Seen by Provider: 03:00 Patient was in a pleasant mood and cooperative with therapy. Objective Patient completed simple problem solving: convergent:inferences Level 2 at 60% with moderate repetitions and redirection. Assessment Assessment Current Status: Fair Progress Treatment Plan Continue Plan of Care Communication Comprehension: 6 Expression: 7 Social Cognition Social Interaction: 7 Problem Solvin Memory: 2 Speech Short Term Goals Short Term Goals Short Term Goals Patient will complete auditory/visual linguistic/memory tasks at 80% with min/ mod assist. Patient will complete auditory/visual problem solving tasks at 80% with min/mod assist. Time Frame-ST week Comprehension: 6 Expression: 7 Social Interaction: 7 Problem Solvin Memory: 3 Speech Retail Field Representative Goals Senior Care Goals Patient will display functional cognition for safety and independence for return to home with min assist. Comprehension: 7 Expression: 7 Social Interaction: 7 Problem Solvin Memory: 4 Speech-Plan Patient/Family Goals Patient/Family Goals: Patient plans to return home with his . Treatment Plan Speech Therapy Treatment Plan: Continue Plan of Care Patient is progressing with memory and problem solving skills. Treatment Duration: Jan 25, 2018 Frequency: 5 times per week Estimated Hrs Per Day: .5 hour per day Rehab Potential: Fair Pt/Family Agrees to Plan: Yes Safety Risks/Education Teaching Recipient: Patient, Significant Other Teaching Methods: Discussion Response to Teaching: Verbalize Understanding Time Speech Therapy Time In: 11:00 Speech Therapy Time Out: 11:30 Total Billed Time: 30 Billed Treatment Time 1ADAM BETHANIA ST Jan 19, 2018 11:40
--- NOTE | 2018-01-19 13:30 | Physical Therapy Daily Note ---
PT Daily Note-Current Subjective Patient in bathroom with nursing pre tx, agrees to PT, no complaints of pain. Appearance Patient BTB post tx with nurse call, phone, tray, all needs met. Mental Status Patient Orientation: Person, Place, Situation Transfers Functional [place] Measure 0=Not Assessed/NA 4=Minimal Assistance 1=Total Assistance 5=Supervision or Setup 2=Maximal Assistance 6=Modified [place] 3=Moderate Assistance 7=Complete IndependenceIRFPAI Quality Coding Scale 6 Independent with activity with or without an assistive device 5 Patient requires set up or clean up by helper. Patient completes activity by themselves 4 Supervision or touching assist (CGA). [place] provide cues , steadying assist 3 The helper provides less than half the effort to complete the activity 2 The helper provides more than half the effort to complete the activity 1 Dependent. The helper does all the effort to complete an activity 7 Patient refused to complete or attempt activity 9 The patient did not perform the activity before the current illness or injury 88 Not attempted due to Medical conditions or safety concerns Transfers (B, C, W/C) (FIM): 4 Scootin Rollin Supine to/from Sit: 5 Sit to/from Stand: 4 Bed to/from Chair: 4 Weight Bearing Right Lower Extremity: Right Full Weight Bearing Left Lower Extremity: Left Full Weight Bearing Gait Training Gait (FIM): 4 Distance: 200', 120' Gait Level of Assist: 4 Gait Persons Needed: 1 Gait Assistive Device: FWW Patient had one definite LOB and needed min assist to recover. Exercises NuStep Minutes: 15 NuStep Workload: 5 Treatments bed mobility and transfers, ambulation, functional strengthening Assessment Current Status: Fair Progress patient had a LOB during ambulation and needed min assist to recover or he would have fallen PT Short Term Goals Short Term Goals Time Frame: Jan 20, 2018 Transfers (B,C,W/C) (FIM): 5 Gait (FIM): 5 Distance (FIM): 9=612-77 ft Gait Distance Comment: 100' Gait Level of Assist: 5 Gait Assistive Device: Handheld Assist Wheelchair Distance: 50' PT Banquet Line Cook Goals Nursing Home Goals PT Banquet Line Cook Goals Time Frame: Feb 03, 2018 Transfers (B,C,W/C) (FIM): 7 Sit to Lying (QC): 6 Lying-Sitting on Side/Bed(QC): 6 Sit to Stand (QC): 6 Rollin Roll Left to Right (QC): 6 Chair/Ijt-tp-Dybzj Xfer(QC): 6 Car Transfer (QC): 6 Does the Patient Walk: Yes Gait (FIM): 6 Gait distance (FIM): 3=150 ft Distance: 500' Walk 10 feet (QC): 6 Walk 10ft-Uneven Surface(QC): 5 Walk 50ft with 2 Turns (QC): 6 Walk 150 ft (QC): 6 Gait Level of Assist: 6 Gait Assistive Device: None, Cane Small Base Quad Stairs (FIM): 7 # of Steps: 12 1 Step (curb) (QC): 6 4 Steps (QC): 6 12 Steps (QC): 6 Stairs Level Of Assist: 7 Picking up an Object (QC): 6 PT Plan Problem List Problem List: Activity Tolerance, Functional Strength, Safety, Balance, Gait, Transfer, Bed Mobility Treatment/Plan Treatment Plan: Continue Plan of Care Treatment Plan: Bed Mobility, Concurrent Therapy, Education, Functional Activity Araceli, Functional Strength, Group Therapy, Gait, Safety, Therapeutic Exercise, Transfers Treatment Duration: Feb 03, 2018 Frequency: 6 times per week Estimated Hrs Per Day: 1.5 hours per day Patient and/or Family Agrees t: Yes Safety Risks/Education Patient Education: Gait Training, Transfer Techniques, Correct Positioning, Safety Issues Teaching Recipient: Patient Teaching Methods: Demonstration, Discussion Response to Teaching: Reinforcement Needed Time/GCodes Time In: 1300 Time Out: 1330 Total Billed Treatment Time: 30 Total Billed Treatment 1 visit EX 15' GT 15' BETTY PARMAR PT Jan 19, 2018 13:30
--- NOTE | 2018-01-19 13:51 | Occupational Ther Daily Note ---
OT Current Status-Daily Note Subjective Pt alert, lying in bed. Pt agrees to therapy. Sister present in room. No c/o pain at this time. Mental Status/Objective Patient Orientation: Person, Place, Time, Situation Functional [place] Measure 0=Not Assessed/NA 4=Minimal Assistance 1=Total Assistance 5=Supervision or Setup 2=Maximal Assistance 6=Modified [place] 3=Moderate Assistance 7=Complete [place] ADL-Treatment Pt initially declined to complete oral care. Did decline changing clothing or showering. Mod I for grooming sitting at sink. Pt able to don/doff shirt and socks by self. CGA standing in front of toilet to void. Functional [place] Measure 0=Not Assessed/NA 4=Minimal Assistance 1=Total Assistance 5=Supervision or Setup 2=Maximal Assistance 6=Modified [place] 3=Moderate Assistance 7=Complete IndependenceIRFPAI Quality Coding Scale 6 Independent with activity with or without an assistive device 5 Patient requires set up or clean up by helper. Patient completes activity by themselves 4 Supervision or touching assist (CGA). [place] provide cues , steadying assist 3 The helper provides less than half the effort to complete the activity 2 The helper provides more than half the effort to complete the activity 1 Dependent. The helper does all the effort to complete an activity 7 Patient refused to complete or attempt activity 9 The patient did not perform the activity before the current illness or injury 88 Not attempted due to Medical conditions or safety concerns Eating (FIM): 5 (Assist to open mustard package then pt able to complete all other tasks to eat lunch.) Eating (QC): 5 Grooming (FIM): 6 Oral Hygiene (QC): 6 Upper Body (FIM): 5 Upper Body Dressing (QC): 5 Other Treatment Pt maneuvered w/c to therapy gym and back. Pt completed arm bike for 15 min starting at 25 jamison resistance then decreased to 15 jamison resistance. Pt has progressed with R UE control when using arm bike. Writing name with R hand is demonstrating increased control, increased pressure when writing, decreased size of letters and good placement of letters in first and last name. Pt maneuvered w/c to room then [facility] area to eat lunch. After therapy, pt sitting EOB in room. Call light/phone in reach. Nrsg notified. OT Short Term Goals Short Term Goals Time Frame: Jan 27, 2018 Eating(FIM): 5 Grooming(FIM): 5 Bathing(FIM): 4 Upper Body Dressing(FIM): 5 Lower Body Dressing(FIM): 4 Toileting(FIM): 4 Transfers (B,C,W/C) (FIM): 5 Toilet/Commode Transfer(FIM): 5 Tub Transfer(FIM): 5 Shower Transfer(FIM): 5 Comprehension(FIM): 6 Expression(FIM): 7 Social Interaction(FIM): 7 Problem Solving(FIM): 4 Memory(FIM): 3 Additional Short Term Goals: 1-Demonstrate ADL Tasks, 2-Verbalize Understanding , 3-ImproveStrength/Araceli 1=Demonstrate adherence to instructed precautions during ADL tasks. 2=Patient will verbalize/demonstrate understanding of assistive devices/ modifications for ADL. 3=Patient will improve strength/tolerance for activity to enable patient to perform ADL's. OT Wood Carving Lathe Operator Goals Wood Carving Lathe Operator Goals Time Frame: Feb 10, 2018 Eating (FIM): 7 Eating (QC): 6 Groomin Oral Hygiene (QC): 6 Bathing(FIM): 6 Shower/Bathe Self (QC): 6 Upper Body Dressing(FIM): 7 Upper Body Dressing (QC): 6 Lower Body Dressing(FIM): 6 Lower Body Dressing (QC): 6 On/Off Footwear (QC): 6 Toileting(FIM): 6 Toileting Hygiene (QC): 6 Transfers (B,C,W/C) (FIM): 6 Toilet/Commode Transfer(FIM): 6 Toilet/Commode Transfer (QC): 6 Tub Transfer(FIM): 6 Shower Transfer(FIM): 6 Comprehension(FIM): 7 Expression (FIM): 7 Social Interaction(FIM): 7 Problem Solving(FIM): 5 Memory(FIM): 4 Additional Goals: 1-Demonstrate ADL Tasks, 2-Verbalize Understanding, 3- ImproveStrength/Araceli 1=Demonstrate adherence to instructed precautions during ADL tasks. 2=Patient will verbalize/demonstrate understanding of assistive devices/ modifications for ADL. 3=Patient will improve strength/tolerance for activity to enable patient to perform ADL's. OT Education/Plan Discharge Recommendations Plan/Recommendations: Continue POC Treatment Plan/Plan of Care Patient would benefit from OT for education, treatment and training to promote independence in ADL's, mobility, safety and/or upper extremity function for ADL' s. Plan of Care: ADL Retraining, Functional Mobility, Group Exercise/Act as Ind, UE Funct Exercise/Act, UE Neuromus Re-Ed/Coord, Visual/Perceptual Retrain Treatment Duration: Feb 24, 2018 Frequency: At least 5 of 7 days/Wk (IRF) Estimated Hrs Per Day: 1.5 hours per day Agreement: Yes Rehab Potential: Fair Time/GCodes Start Time: 10:45 Stop Time: 12:15 Total Time Billed (hr/min): 90 Billed Treatment Time 1 visit-NM 4 (60 min) FA 1 (15 min) ADL 1 (15 min) SHAY DAVIDSON Jan 19, 2018 13:51
[2018-01-19 15:44] VITALS: BP 125/70
[2018-01-19] MEDS: inSUlin DETERMIR 1 UNIT/0.01 ML (LEVEMIR) CHARGE PER UNIT SQ SCH (22:04)
[2018-01-20 05:54] VITALS: BP 143/81
[2018-01-20] MEDS: inSUlin ASPART (NovoLOG) 1 UNIT/0.01 ML (CHARGE PER UNIT) SC SCH ×4 (06:49→20:37)
[2018-01-20] MEDS: ASPIRIN E.C. 81 MG (ECOTRIN) TAB PO SCH (08:26)
[2018-01-20] MEDS: amLODIPine 5 MG (NORVASC) TAB PO SCH (08:26)
[2018-01-20] MEDS: SENNA W/DOCUSATE (SENOKOT S) TABLET PO SCH ×2 (08:27→20:39)
[2018-01-20] MEDS: BISACODYL 10 MG SUPP (DULCOLAX) PR SCH ×2 (08:27→20:39)
[2018-01-20] MEDS: guaiFENesin (MUCINEX) 600 MG TAB PO SCH ×2 (08:28→20:38)
[2018-01-20] MEDS: CARBAM PEROX/GLYC/PROP 15 ML DROPS (DEBROX) EACH EAR SCH ×4 (08:28→20:36)
[2018-01-20] MEDS: DOCUSATE SODIUM 100 MG (COLACE) CAP PO SCH ×2 (08:28→20:37)
--- NOTE | 2018-01-20 12:35 | Physical Therapy Daily Note ---
PT Daily Note-Current Subjective Agreeable to PT. Pt's girlfriend present. They report he will most likely return to living with his sister at ok. Agreeable to some family training. Mental Status Patient Orientation: Person, Place, Time, Situation He does demonstrate slight right neglect. Education to girlfriend on drawing attention to his right to increase awareness. Transfers Functional [place] Measure 0=Not Assessed/NA 4=Minimal Assistance 1=Total Assistance 5=Supervision or Setup 2=Maximal Assistance 6=Modified [place] 3=Moderate Assistance 7=Complete IndependenceIRFPAI Quality Coding Scale 6 Independent with activity with or without an assistive device 5 Patient requires set up or clean up by helper. Patient completes activity by themselves 4 Supervision or touching assist (CGA). [place] provide cues , steadying assist 3 The helper provides less than half the effort to complete the activity 2 The helper provides more than half the effort to complete the activity 1 Dependent. The helper does all the effort to complete an activity 7 Patient refused to complete or attempt activity 9 The patient did not perform the activity before the current illness or injury 88 Not attempted due to Medical conditions or safety concerns Transfers (B, C, W/C) (FIM): 4 (CGA at most times for safety) Sit to/from Stand: 4 (CG-SBA; education to girlfriend on safety with transfers and body/hand placement to assist. ) Car Transfer (QC): 4 (CGA with skilled cues to sequence; again, training as girlfriend is taking him to an appt next week.) Required cues and education on squaring up tot he chair and reaching back, afer education and cues, he was much improved with this. Weight Bearing Right Lower Extremity: Right Full Weight Bearing Left Lower Extremity: Left Full Weight Bearing Gait Training Does the Patient Walk?: Yes Gait (FIM): 4 Distance (FIM): 3=150 ft Distance: 150 ft x 3 Gait Assistive Device: FWW Cues for safety and right sided awareness. Stair Training Stair Training: Handrails/: 2 handrails Stairs (FIM): 2 4 Steps (QC): 4 Education on sequencing on stairs with education on safety as well. UP/down 8 steps with CGA with cues along the way for sequence. Girlfriend present and verbalized understanding. Exercises NuStep Minutes: 15 Assessment Current Status: Good Progress Good functional progress with good carryover and follow thru with education. Making functional gains. Still requires assist for safety but improved since last seen by this clinician. Girlfriend helpful and demonstrates understanding of safety with mobilituy. PT Short Term Goals Short Term Goals Time Frame: Jan 20, 2018 Transfers (B,C,W/C) (FIM): 5 Gait (FIM): 5 Distance (FIM): 1=042-89 ft Gait Distance Comment: 100' Gait Level of Assist: 5 Gait Assistive Device: Handheld Assist Wheelchair Distance: 50' PT Custodial Goals Custodial Goals PT Custodial Goals Time Frame: Feb 03, 2018 Transfers (B,C,W/C) (FIM): 7 Sit to Lying (QC): 6 Lying-Sitting on Side/Bed(QC): 6 Sit to Stand (QC): 6 Rollin Roll Left to Right (QC): 6 Chair/Wal-ub-Dyxwg Xfer(QC): 6 Car Transfer (QC): 6 Does the Patient Walk: Yes Gait (FIM): 6 Gait distance (FIM): 3=150 ft Distance: 500' Walk 10 feet (QC): 6 Walk 10ft-Uneven Surface(QC): 5 Walk 50ft with 2 Turns (QC): 6 Walk 150 ft (QC): 6 Gait Level of Assist: 6 Gait Assistive Device: None, Cane Small Base Quad Stairs (FIM): 7 # of Steps: 12 1 Step (curb) (QC): 6 4 Steps (QC): 6 12 Steps (QC): 6 Stairs Level Of Assist: 7 Picking up an Object (QC): 6 PT Plan Problem List Problem List: Activity Tolerance, Functional Strength, Safety, Balance, Gait, Transfer, Bed Mobility Treatment/Plan Treatment Plan: Continue Plan of Care Treatment Plan: Bed Mobility, Concurrent Therapy, Education, Functional Activity Araceli, Functional Strength, Group Therapy, Gait, Safety, Therapeutic Exercise, Transfers Treatment Duration: Feb 03, 2018 Frequency: 6 times per week Estimated Hrs Per Day: 1.5 hours per day Patient and/or Family Agrees t: Yes Safety Risks/Education Patient Education: Transfer Techniques, Safety Issues Teaching Recipient: Patient, Significant Other Teaching Methods: Demonstration, Discussion Response to Teaching: Reinforcement Needed Time/GCodes Time In: 1100 Time Out: 1135 Total Billed Treatment Time: 35 Total Billed Treatment visit FA 20 EX 15 SHAY COTTO PT Jan 20, 2018 12:35
[2018-01-20] MEDS: NICOTINE 21 MG (NICODERM) PATCH TD SCH (14:00)
[2018-01-20 17:10] VITALS: BP 120/69
[2018-01-20] MEDS: inSUlin DETERMIR 1 UNIT/0.01 ML (LEVEMIR) CHARGE PER UNIT SQ SCH (20:37)
[2018-01-21] MEDS: CALCIUM CARBONATE 500 MG (TUMS) TAB.CHEW PO PRN (01:52)
[2018-01-21 06:00] VITALS: BP 128/68
[2018-01-21] MEDS: inSUlin ASPART (NovoLOG) 1 UNIT/0.01 ML (CHARGE PER UNIT) SC SCH ×4 (06:51→20:47)
[2018-01-21] MEDS: NICOTINE PATCH REMOVAL TP SCH (09:29)
[2018-01-21] MEDS: NICOTINE 21 MG (NICODERM) PATCH TD SCH (09:29)
[2018-01-21] MEDS: ASPIRIN E.C. 81 MG (ECOTRIN) TAB PO SCH (09:29)
[2018-01-21] MEDS: DOCUSATE SODIUM 100 MG (COLACE) CAP PO SCH ×2 (09:29→20:51)
[2018-01-21] MEDS: amLODIPine 5 MG (NORVASC) TAB PO SCH (09:29)
[2018-01-21] MEDS: CARBAM PEROX/GLYC/PROP 15 ML DROPS (DEBROX) EACH EAR SCH ×4 (09:35→20:49)
[2018-01-21] MEDS: SENNA W/DOCUSATE (SENOKOT S) TABLET PO SCH ×2 (09:35→20:51)
[2018-01-21] MEDS: BISACODYL 10 MG SUPP (DULCOLAX) PR SCH ×2 (09:35→20:51)
[2018-01-21] MEDS: guaiFENesin (MUCINEX) 600 MG TAB PO SCH ×2 (09:35→20:51)
[2018-01-21 17:51] VITALS: BP 128/76
[2018-01-21] MEDS: inSUlin DETERMIR 1 UNIT/0.01 ML (LEVEMIR) CHARGE PER UNIT SQ SCH (20:47)
[2018-01-21] MEDS: HYDROcodone/APAP 5 MG/325 MG (LORTAB) TAB PO PRN (22:09)
[2018-01-21] MEDS: ALPRAZolam 0.25 MG (XANAX) TAB PO PRN (23:54)
[2018-01-22 05:01] VITALS: BP 124/67
[2018-01-22] MEDS: inSUlin ASPART (NovoLOG) 1 UNIT/0.01 ML (CHARGE PER UNIT) SC SCH ×4 (05:38→20:16)
--- NOTE | 2018-01-22 08:30 | Progress Note (SOAP) ---
Subjective Time Seen by a Provider: 08:29 Subjective/Events-last exam Spoke to patient about his diabetes. No no patient will follow a diet. Patient to see dietitian. Patient improving with stroke Objective Exam Vital Signs Date Time Temp Pulse Resp B/P (MAP) Pulse Ox O2 Delivery O2 Flow Rate FiO2 01/22/18 05:01 98.6 65 18 124/67 (86) 97 Room Air 01/21/18 21:05 Room Air 01/21/18 20:14 Room Air 01/21/18 17:51 99.3 64 18 128/76 (93) 97 Room Air 01/21/18 09:50 Room Air I & O 01/22/18 07:00 Intake Total 1900 ml Output Total 200 ml Balance 1700 ml Capillary Refill : General Appearance: No Apparent Distress, WD/WN Results Lab Laboratory Tests 01/21/18 11:04: Glucometer 114H 01/21/18 16:27: Glucometer 118H 01/21/18 20:42: Glucometer 194H 01/22/18 05:28: Glucometer 111H Assessment/Plan Assessment/Plan Assess & Plan/Chief Complaint CVA. Diabetes. Hypertension. Non-small cell lung cancer. Right renal mass. Tobaccoism. History of methadone use. Constipation. MARION on CPAP. Severe hypertensive crisis. Small castellanos aneurysm. . 01/16/18. CVA. Diabetes. Hypertension. Non-small cell lung cancer. GI upset. Severe hypertensive crisis. Small castellanos aneurysm. . 01/17/18. CVA. Diabetes is doing good. Hypertension. Non-small cell lung cancer. GI upset better. Severe hypertensive crisis history. Small castellanos aneurysm. . 01/18/18. CVA. Diabetes good. Hypertension good. Non-small cell lung cancer. History of severe hypertensive crisis. small castellanos aneurysm. Patient still needs better r gait. . 01/19/18. CVA. Diabetes good. Hypertension good. Non-small cell lung cancer. History of severe hypertensive crisis. Small castellanos aneurysm. Patient continues to improve. . 01/22/18. CVA. Patient to be put on oral medicine for diabetes. Hypertension good. Non-small cell lung cancer. History of severe hypertensive crisis. Small castellanos aneurysm Clinical Quality Measures DVT/VTE Risk/Contraindication: Risk Factor Score Per Nursin RFS Level Per Nursing on Admit: 4+=Very High XAVIER KRISHNA DO Jan 22, 2018 08:30
[2018-01-22] MEDS: amLODIPine 5 MG (NORVASC) TAB PO SCH (08:39)
[2018-01-22] MEDS: SENNA W/DOCUSATE (SENOKOT S) TABLET PO SCH ×2 (08:39→20:17)
[2018-01-22] MEDS: ASPIRIN E.C. 81 MG (ECOTRIN) TAB PO SCH (08:39)
[2018-01-22] MEDS: guaiFENesin (MUCINEX) 600 MG TAB PO SCH ×2 (08:39→20:17)
[2018-01-22] MEDS: CARBAM PEROX/GLYC/PROP 15 ML DROPS (DEBROX) EACH EAR SCH ×4 (08:40→20:17)
[2018-01-22] MEDS: DOCUSATE SODIUM 100 MG (COLACE) CAP PO SCH ×2 (08:43→20:17)
[2018-01-22] MEDS: NICOTINE 21 MG (NICODERM) PATCH TD SCH (08:44)
[2018-01-22] MEDS: NICOTINE PATCH REMOVAL TP SCH (08:44)
[2018-01-22] MEDS: BISACODYL 10 MG SUPP (DULCOLAX) PR SCH ×2 (08:44→20:17)
--- NOTE | 2018-01-22 09:18 | PM & R (SOAP) Progress Note ---
Subjective This was a face to face visit with the patient. Date Seen by Provider: Jan 21, 2018 Time Seen by Provider: 19:10 Subjective/Events-last exam Patient was seen in his room this evening Patient CGA to min assist for transfers To have appointment with Outside [facility] tomorrow Day pass ordered Review of Systems Neurological: Weakness Objective Physician Exam Last Set of Vital Signs Vital Signs Date Time Temp Pulse Resp B/P (MAP) Pulse Ox O2 Delivery O2 Flow Rate FiO2 01/22/18 05:01 98.6 65 18 124/67 (86) 97 Room Air Capillary Refill : I&O Intake and Output 01/22/18 00:00 Intake Total 1420 ml Output Total 200 ml Balance 1220 ml Intake Oral 1420 ml Output Urine Total 200 ml # Voids 7 # Bowel Movements 2 General: Alert, Oriented X3, No Acute Distress HEENT: Mucous Memb Moist/[place], Other (RT SIDED VISUAL IMPAIRMENT) Neck: Supple, No JVD Heart: Regular Rate Abdomen: Normal Bowel Sounds, Soft, No Tenderness, Other ( DISTENDED) Extremities: No Edema Skin: Other (SMALL RASH OVER LEFT MID ABDOMEN) Neuro: Other (rT HIP FLEX 3+/5 rue 3+/5 lEFT ue 4+/5 lle 4/5) Psych/Mental Status: Mental Status NL Results Lab Data Laboratory Tests 01/19/18 11:48: Glucometer 128H 01/19/18 15:42: Glucometer 104 01/19/18 21:55: Glucometer 172H 01/20/18 05:48: Glucometer 237H 01/20/18 12:01: Glucometer 147H 01/20/18 16:19: Glucometer 165H 01/20/18 20:12: Glucometer 152H 01/21/18 06:49: Glucometer 102 01/21/18 11:04: Glucometer 114H 01/21/18 16:27: Glucometer 118H 01/21/18 20:42: Glucometer 194H 01/22/18 05:28: Glucometer 111H Assessment/Plan Assessment and Plan Left occipital stroke with RT sided neglect and weakness and discoordination improving New onset DM controlled HTN controlled Tobaccoism abstaining Constipation improved Urticaria resolved HLP MARION on CPAP Plan Continue PT/OT F/U with Julian [facility] tomorrow at outside facility in [place] Team Conference 01-24-18 Co-Morbidities that are continuing to impact the rehab process: (include details ) SYDNEE GUAN MD Jan 22, 2018 09:18
--- NOTE | 2018-01-22 10:59 | Physical Therapy Daily Note ---
PT Daily Note-Current Subjective Patient in bed pre tx, agrees to PT, has had some pain in his right ear but none currently. Appearance Patient in recliner post tx with nurse call, phone, tray, all needs met. Mental Status Patient Orientation: Person, Place, Situation Transfers Functional [place] Measure 0=Not Assessed/NA 4=Minimal Assistance 1=Total Assistance 5=Supervision or Setup 2=Maximal Assistance 6=Modified [place] 3=Moderate Assistance 7=Complete IndependenceIRFPAI Quality Coding Scale 6 Independent with activity with or without an assistive device 5 Patient requires set up or clean up by helper. Patient completes activity by themselves 4 Supervision or touching assist (CGA). [place] provide cues , steadying assist 3 The helper provides less than half the effort to complete the activity 2 The helper provides more than half the effort to complete the activity 1 Dependent. The helper does all the effort to complete an activity 7 Patient refused to complete or attempt activity 9 The patient did not perform the activity before the current illness or injury 88 Not attempted due to Medical conditions or safety concerns Transfers (B, C, W/C) (FIM): 4 Scootin Rollin Supine to/from Sit: 6 Sit to/from Stand: 5 Bed to/from Chair: 5 Occasional cues for hand placement and safety especially due to right neglect. Weight Bearing Right Lower Extremity: Right Full Weight Bearing Left Lower Extremity: Left Full Weight Bearing Gait Training Gait (FIM): 5 Distance: 200'x2, 150' Gait Level of Assist: 5 Gait Persons Needed: 1 Gait Assistive Device: FWW Close SBA, patient has moments of unsteadiness but no LOB, is able to correct balance when needed, cues for direction, occasionally catches wheels of walker on the right side Exercises Standing: Hip Abduction, Hamstring curls, Heel/toe raises, Mini squats, Step- ups Standing Reps: 15 NuStep Minutes: 15 NuStep Workload: 5 Treatments bed mobility and transfers, ambulation, functional strengthening, patient was toileted once with SBA to urinate Assessment Current Status: Fair Progress progressing general mobility and balance PT Short Term Goals Short Term Goals Time Frame: Jan 20, 2018 Transfers (B,C,W/C) (FIM): 5 Gait (FIM): 5 Distance (FIM): 5=349-86 ft Gait Distance Comment: 100' Gait Level of Assist: 5 Gait Assistive Device: Handheld Assist Wheelchair Distance: 50' PT Mechanical Product Design Engineer Goals Half-Way Goals PT Half-Way Goals Time Frame: Feb 03, 2018 Transfers (B,C,W/C) (FIM): 7 Sit to Lying (QC): 6 Lying-Sitting on Side/Bed(QC): 6 Sit to Stand (QC): 6 Rollin Roll Left to Right (QC): 6 Chair/Cly-ag-Gmgqo Xfer(QC): 6 Car Transfer (QC): 6 Does the Patient Walk: Yes Gait (FIM): 6 Gait distance (FIM): 3=150 ft Distance: 500' Walk 10 feet (QC): 6 Walk 10ft-Uneven Surface(QC): 5 Walk 50ft with 2 Turns (QC): 6 Walk 150 ft (QC): 6 Gait Level of Assist: 6 Gait Assistive Device: None, Cane Small Base Quad Stairs (FIM): 7 # of Steps: 12 1 Step (curb) (QC): 6 4 Steps (QC): 6 12 Steps (QC): 6 Stairs Level Of Assist: 7 Picking up an Object (QC): 6 PT Plan Problem List Problem List: Activity Tolerance, Functional Strength, Safety, Balance, Gait, Transfer, Bed Mobility Treatment/Plan Treatment Plan: Continue Plan of Care Treatment Plan: Bed Mobility, Concurrent Therapy, Education, Functional Activity Araceli, Functional Strength, Group Therapy, Gait, Safety, Therapeutic Exercise, Transfers Treatment Duration: Feb 03, 2018 Frequency: 6 times per week Estimated Hrs Per Day: 1.5 hours per day Patient and/or Family Agrees t: Yes Safety Risks/Education Patient Education: Gait Training, Transfer Techniques, Correct Positioning, Safety Issues Teaching Recipient: Patient Teaching Methods: Demonstration, Discussion Response to Teaching: Reinforcement Needed Time/GCodes Time In: 1000 Time Out: 1100 Total Billed Treatment Time: 60 Total Billed Treatment 1 visit GT 25' EX 35' BETTY PARMAR PT Jan 22, 2018 10:59
--- NOTE | 2018-01-22 11:21 | PM & R (SOAP) Progress Note ---
Subjective This was a face to face visit with the patient. Date Seen by Provider: Jan 22, 2018 Time Seen by Provider: 07:30 Subjective/Events-last exam Patient was seen in his room this AM Patient Min assist for transfers Has appointment with outside [facility] DR clayton KELLER f/u today.Patient declining N patch for smoking cessation Date Identified: Jan 22, 2018 Time Identified: 07:30 Medication Intervention: Patient declines N patch Insulin d/cd metformin ordered Review of Systems Neurological: Weakness, Incoordination Objective Physician Exam Last Set of Vital Signs Vital Signs Date Time Temp Pulse Resp B/P (MAP) Pulse Ox O2 Delivery O2 Flow Rate FiO2 01/22/18 09:20 92 Room Air 01/22/18 05:01 98.6 65 18 124/67 (86) Capillary Refill : I&O Intake and Output 01/22/18 00:00 Intake Total 1420 ml Output Total 200 ml Balance 1220 ml Intake Oral 1420 ml Output Urine Total 200 ml # Voids 7 # Bowel Movements 2 General: Alert, Oriented X3, No Acute Distress HEENT: Mucous Memb Moist/[place], Other (RT SIDED VISUAL IMPAIRMENT) Neck: Supple, No JVD Heart: Regular Rate Abdomen: Normal Bowel Sounds, Soft, No Tenderness, Other ( DISTENDED) Extremities: No Edema Skin: Other (SMALL RASH OVER LEFT MID ABDOMEN) Neuro: Other (rT HIP FLEX 3+/5 rue 3+/5 lEFT ue 4+/5 lle 4/5) Psych/Mental Status: Mental Status NL Results Lab Data Laboratory Tests 01/19/18 11:48: Glucometer 128H 01/19/18 15:42: Glucometer 104 01/19/18 21:55: Glucometer 172H 01/20/18 05:48: Glucometer 237H 01/20/18 12:01: Glucometer 147H 01/20/18 16:19: Glucometer 165H 01/20/18 20:12: Glucometer 152H 01/21/18 06:49: Glucometer 102 01/21/18 11:04: Glucometer 114H 01/21/18 16:27: Glucometer 118H 01/21/18 20:42: Glucometer 194H 01/22/18 05:28: Glucometer 111H 01/22/18 10:54: Glucometer 110 Assessment/Plan Assessment and Plan Left occipital stroke with rt sided neglect and weakness and discoodination improving New onset ZDM now switched to oral control and Insulin d/cd HTN controlled Tobaccoism abstaining constipation improved Urticaria resolved HLP MARION on CPAP Plan Continue PT/OT F/U with medonc today Team Conference 01-24-18 Monitor accucheks and adjust meds as needed f/U with Dr baeza Co-Morbidities that are continuing to impact the rehab process: (include details ) SYDNEE GUAN MD Jan 22, 2018 11:21
--- NOTE | 2018-01-22 12:40 | Occupational Ther Daily Note ---
OT Current Status-Daily Note Subjective Pt alert, sitting in recliner. Pt agrees to therapy. No c/o pain at this time. Mental Status/Objective Patient Orientation: Person, Place, Time, Situation Functional [place] Measure 0=Not Assessed/NA 4=Minimal Assistance 1=Total Assistance 5=Supervision or Setup 2=Maximal Assistance 6=Modified [place] 3=Moderate Assistance 7=Complete [place] ADL-Treatment Functional [place] Measure 0=Not Assessed/NA 4=Minimal Assistance 1=Total Assistance 5=Supervision or Setup 2=Maximal Assistance 6=Modified [place] 3=Moderate Assistance 7=Complete IndependenceIRFPAI Quality Coding Scale 6 Independent with activity with or without an assistive device 5 Patient requires set up or clean up by helper. Patient completes activity by themselves 4 Supervision or touching assist (CGA). [place] provide cues , steadying assist 3 The helper provides less than half the effort to complete the activity 2 The helper provides more than half the effort to complete the activity 1 Dependent. The helper does all the effort to complete an activity 7 Patient refused to complete or attempt activity 9 The patient did not perform the activity before the current illness or injury 88 Not attempted due to Medical conditions or safety concerns Eating (FIM): 7 (Pt opens packages and containers then uses regular utensils to eat with. Pt tends to order finger food.) Eating (QC): 6 Grooming (FIM): 5 (Sitting at sink is able to complete grooming. Pt impulsively stood to rinse out mouth, SBA. Pushed w/c back and started to stand without locking brakes.) Oral Hygiene (QC): 4 Bathing (FIM): 5 (Using shower bench, grabbars, hand held shower and long handle brush pt able to complete with SBA. Stands to wash buttocks and gill area. Assist to hang up hand held shower.) Bathing Location: L Arm, R Arm, L Upper Leg, R Upper Leg, L Lower Leg ( including foot), R Lower Leg (including foot), Chest, Abdomen, Buttocks, Perineal Area Shower/Bathe Self (QC): 4 Upper Body (FIM): 5 (After set up, pt able to don/doff by self.) Upper Body Dressing (QC): 5 Lower Body Dressing (FIM): 5 (After set up, pt able to don/doff by self. SBA for safety.) Lower Body Dressing (QC): 4 On/Off Footwear (QC): 5 (Able to don/doff by self.) Shower Transfer(FIM): 5 (SBA using FWW, grabbars and shower bench.) Other Treatment Pt completed nut/bolt activity to work on UE bilateral tasks, sequencing and fine motor skills (8x's). Worked on controlled writing within designated areas for ability to sign name on documents. After therapy, pt sitting in recliner eating lunch. Call light/phone on reach. All needs met in room. OT Short Term Goals Short Term Goals Time Frame: Jan 27, 2018 Eating(FIM): 5 Grooming(FIM): 5 Bathing(FIM): 4 Upper Body Dressing(FIM): 5 Lower Body Dressing(FIM): 4 Toileting(FIM): 4 Transfers (B,C,W/C) (FIM): 5 Toilet/Commode Transfer(FIM): 5 Tub Transfer(FIM): 5 Shower Transfer(FIM): 5 Comprehension(FIM): 6 Expression(FIM): 7 Social Interaction(FIM): 7 Problem Solving(FIM): 4 Memory(FIM): 3 Additional Short Term Goals: 1-Demonstrate ADL Tasks, 2-Verbalize Understanding , 3-ImproveStrength/Araceli 1=Demonstrate adherence to instructed precautions during ADL tasks. 2=Patient will verbalize/demonstrate understanding of assistive devices/ modifications for ADL. 3=Patient will improve strength/tolerance for activity to enable patient to perform ADL's. 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 Farm Goals Farmworker [employer] Goals Time Frame: Feb 10, 2018 Eating (FIM): 7 Eating (QC): 6 Groomin Oral Hygiene (QC): 6 Bathing(FIM): 6 Shower/Bathe Self (QC): 6 Upper Body Dressing(FIM): 7 Upper Body Dressing (QC): 6 Lower Body Dressing(FIM): 6 Lower Body Dressing (QC): 6 On/Off Footwear (QC): 6 Toileting(FIM): 6 Toileting Hygiene (QC): 6 Transfers (B,C,W/C) (FIM): 6 Toilet/Commode Transfer(FIM): 6 Toilet/Commode Transfer (QC): 6 Tub Transfer(FIM): 6 Shower Transfer(FIM): 6 Comprehension(FIM): 7 Expression (FIM): 7 Social Interaction(FIM): 7 Problem Solving(FIM): 5 Memory(FIM): 4 Additional Goals: 1-Demonstrate ADL Tasks, 2-Verbalize Understanding, 3- ImproveStrength/Araceli 1=Demonstrate adherence to instructed precautions during ADL tasks. 2=Patient will verbalize/demonstrate understanding of assistive devices/ modifications for ADL. 3=Patient will improve strength/tolerance for activity to enable patient to perform ADL's. OT Education/Plan Discharge Recommendations Plan/Recommendations: Continue POC Treatment Plan/Plan of Care Patient would benefit from OT for education, treatment and training to promote independence in ADL's, mobility, safety and/or upper extremity function for ADL' s. Plan of Care: ADL Retraining, Functional Mobility, Group Exercise/Act as Ind, UE Funct Exercise/Act, UE Neuromus Re-Ed/Coord, Visual/Perceptual Retrain Treatment Duration: Feb 24, 2018 Frequency: At least 5 of 7 days/Wk (IRF) Estimated Hrs Per Day: 1.5 hours per day Agreement: Yes Rehab Potential: Fair Time/GCodes Start Time: 11:00 Stop Time: 12:15 Total Time Billed (hr/min): 75 Billed Treatment Time 1 visit-ADL 3 (50 min) NM 2 (25 min) SHAY DAVIDSON Jan 22, 2018 12:40
--- NOTE | 2018-01-22 13:37 | Speech Therapy Daily Note ---
Speech Daily Progress Note Subjective Date Seen by Provider: Jan 22, 2018 Time Seen by Provider: 00:30 Patient was pleasant and cooperative this date. Objective Patient completed problem solving tasks with min to mod cues at 80% accuracy. Assessment Assessment Current Status: Good Progress Patient is continuing to progress with memory and problem solving. Treatment Plan Continue Plan of Care Communication Comprehension: 6 Expression: 7 Social Cognition Social Interaction: 7 Problem Solvin Memory: 2 Speech Short Term Goals Short Term Goals Short Term Goals Patient will complete auditory/visual linguistic/memory tasks at 80% with min/ mod assist. Patient will complete auditory/visual problem solving tasks at 80% with min/mod assist. Time Frame-ST week Comprehension: 6 Expression: 7 Social Interaction: 7 Problem Solvin Memory: 3 Speech Penitentiary Goals Glove Tagger Goals Patient will display functional cognition for safety and independence for return to home with min assist. Comprehension: 7 Expression: 7 Social Interaction: 7 Problem Solvin Memory: 4 Speech-Plan Patient/Family Goals Patient/Family Goals: Patient is planning to return home with his significant other. Treatment Plan Speech Therapy Treatment Plan: Continue Plan of Care Patient is progressing. Treatment Duration: Jan 25, 2018 Frequency: 5 times per week Estimated Hrs Per Day: .5 hour per day Rehab Potential: Fair Pt/Family Agrees to Plan: Yes Safety Risks/Education Teaching Recipient: Patient Teaching Methods: Discussion Response to Teaching: Verbalize Understanding Time Speech Therapy Time In: 09:00 Speech Therapy Time Out: 09:30 Total Billed Time: 30 Billed Treatment Time 1ADAM BETHANIA Jan 22, 2018 13:37
--- NOTE | 2018-01-22 14:03 | Physical Therapy Daily Note ---
PT Daily Note-Current Subjective Agrees to PT. Reports he is going to the doctor in [place] later today. Mental Status Patient Orientation: Person, Place, Time, Situation Transfers Functional [place] Measure 0=Not Assessed/NA 4=Minimal Assistance 1=Total Assistance 5=Supervision or Setup 2=Maximal Assistance 6=Modified [place] 3=Moderate Assistance 7=Complete IndependenceIRFPAI Quality Coding Scale 6 Independent with activity with or without an assistive device 5 Patient requires set up or clean up by helper. Patient completes activity by themselves 4 Supervision or touching assist (CGA). [place] provide cues , steadying assist 3 The helper provides less than half the effort to complete the activity 2 The helper provides more than half the effort to complete the activity 1 Dependent. The helper does all the effort to complete an activity 7 Patient refused to complete or attempt activity 9 The patient did not perform the activity before the current illness or injury 88 Not attempted due to Medical conditions or safety concerns Transfers (B, C, W/C) (FIM): 5 Sit to/from Stand: 5 (skilled cues for hand placement and safety) Sit to Stand (QC): 5 requires reminders for safety with transfers and sequencing. Sit to stand transfers 2 x 5 reps with cues for sequencing and safety. Weight Bearing Right Lower Extremity: Right Full Weight Bearing Left Lower Extremity: Left Full Weight Bearing Gait Training Does the Patient Walk?: Yes Gait (FIM): 4 Distance (FIM): 3=150 ft Distance: 150 ft x 3 Gait Assistive Device: FWW CGA with gait for safety. He does have slight right neglect and does tend to run into things on his right. Able to correct with cues. Treatments Pt in his room post treatment with chair alarm activiated. Education provided on safety and transfers. Educated pt to call for help when he wants to get up and move around. Assessment Current Status: Good Progress Pt is progressing and his gait and transfers are improving. PT Short Term Goals Short Term Goals Time Frame: Jan 20, 2018 Transfers (B,C,W/C) (FIM): 5 (met) Gait (FIM): 5 Distance (FIM): 3=528-06 ft Gait Distance Comment: 100' Gait Level of Assist: 5 Gait Assistive Device: Handheld Assist Wheelchair Distance: 50' PT Intermediate Goals Intermediate Goals PT Intermediate Goals Time Frame: Feb 03, 2018 Transfers (B,C,W/C) (FIM): 7 Sit to Lying (QC): 6 Lying-Sitting on Side/Bed(QC): 6 Sit to Stand (QC): 6 Rollin Roll Left to Right (QC): 6 Chair/Frr-hz-Eosjj Xfer(QC): 6 Car Transfer (QC): 6 Does the Patient Walk: Yes Gait (FIM): 6 Gait distance (FIM): 3=150 ft Distance: 500' Walk 10 feet (QC): 6 Walk 10ft-Uneven Surface(QC): 5 Walk 50ft with 2 Turns (QC): 6 Walk 150 ft (QC): 6 Gait Level of Assist: 6 Gait Assistive Device: None, Cane Small Base Quad Stairs (FIM): 7 # of Steps: 12 1 Step (curb) (QC): 6 4 Steps (QC): 6 12 Steps (QC): 6 Stairs Level Of Assist: 7 Picking up an Object (QC): 6 PT Plan Problem List Problem List: Activity Tolerance, Functional Strength, Safety, Balance, Gait, Transfer, Bed Mobility Treatment/Plan Treatment Plan: Continue Plan of Care Treatment Plan: Bed Mobility, Concurrent Therapy, Education, Functional Activity Araceli, Functional Strength, Group Therapy, Gait, Safety, Therapeutic Exercise, Transfers Treatment Duration: Feb 03, 2018 Frequency: 6 times per week Estimated Hrs Per Day: 1.5 hours per day Patient and/or Family Agrees t: Yes Safety Risks/Education Patient Education: Transfer Techniques, Safety Issues Teaching Recipient: Patient Teaching Methods: Demonstration, Discussion Response to Teaching: Return Demonstration, Reinforcement Needed Time/GCodes Time In: 1307 Time Out: 1330 Total Billed Treatment Time: 23 Total Billed Treatment visit GT 23 SHAY COTTO PT Jan 22, 2018 14:03
--- NOTE | 2018-01-22 15:01 | ST Cognitive Linguistic Eval ---
Speech Evaluation-General Medical Diagnosis CVA Onset Date: Jan 04, 2018 Therapy Diagnosis Therapy Diagnosis: Cognitive Communication Precautions Precautions: Fall (Patient was evaluated for possible dysphagia.) Precautions/Isolations: Fall Prevention, Standard Precautions Patient was pleasant and cooperative. Referral Referring Physician: Dr. Alegria Reason for Referral: Evaluation/Treatment Medical History Pertinent Medical History: CVA, HTN, Smoking Reviewed History: Yes Social History Current Living Status: Spouse Speech PLF-Current Status Prior Level of Function Pt was independent. Subjective Patient was pleasant. She gets frustrated when she can't say the words she wants to. Language Eval: Auditory Comprehends Simple Yes/No Ques: Mild Language Eval: Verbal Language Completes Spontaneous Greeting: Functional Produces Auto, Serial Info: Moderate Imitates Simple Words/Phrases: Mild Word Finding: Moderate Requests Basic Needs: Moderate States Basic Personal Info: Moderate Patient has moderate to severe deficit for word finding. Language Evaluation: Reading Comprehends Single Nouns: Mild Follows Simple Written Direct: Mild Cognitive Patient Orientation Patient is oriented to person, place and time. Objective Cognitive Domain Attention: Mild Memory: Mild Problem Solving: Mild Executive Functions: Mild Objective Formal/Standardized Tests WYNRT Results Simple y/n: Mild, Intermediate level: Moderate, Advanced Moderate to Severe Following 1 step verbal commands Moderate to Severe Oral Motor/Speech Production Within functional limits Impression Patient exhibits moderate-severe expressive aphasia with single word deficits. Patient is able to read simple words and follow simple conversation. She is not able to follow 1-step directions involving her body. She does not use her arms to follow through at all. She was not able to recite her name or personal information. Patient was able to name items given phonemic cues without difficulty. Communication/Social Cognition Comprehension: 5 Speech Patient Assess Expression of Ideas/Wants: Expression (4) Understanding Verbal Content: Understands (4) Brief Interview-Mental Status: Yes Repetition of Three Words: Three (3) Temporal Orientation: Year: No answer (0) Temporal Orientation: Month: Accurate within 5 days(2) Recall : Wear to say "Sock": No, could not recall (0) Recall : Color: No, could not recall (0) Recall : Bed: No, could not recall (0) Speech Short Term Goals Short Term Goals Short Term Goals Patient will complete auditory/visual linguistic/memory tasks at 80% with min/ mod assist. Patient will complete auditory/visual problem solving tasks at 80% with min/mod assist. Time Frame-ST week Comprehension: 6 Expression: 7 Social Interaction: 7 Problem Solvin Memory: 3 Speech Long-Term Goals Long-Term Goals Patient will display functional cognition for safety and independence for return to home with min assist. Comprehension: 7 Expression: 7 Social Interaction: 7 Problem Solvin Memory: 4 Speech-Plan Treatment Plan Treatment Duration: Jan 25, 2018 Frequency: 5 times per week Estimated Hrs Per Day: .5 hour per day Rehab Potential: FLORA Braun Jan 22, 2018 15:01
[2018-01-22] MEDS: metFORMIN 500 MG (GLUCOPHAGE) TAB PO SCH (18:05)
[2018-01-22 18:10] VITALS: BP 144/85
[2018-01-22] MEDS: HYDROcodone/APAP 5 MG/325 MG (LORTAB) TAB PO PRN (20:16)
[2018-01-22] MEDS: ALPRAZolam 0.25 MG (XANAX) TAB PO PRN (20:16)
[2018-01-23] MEDS: inSUlin ASPART (NovoLOG) 1 UNIT/0.01 ML (CHARGE PER UNIT) SC SCH ×4 (05:50→20:06)
[2018-01-23 06:01] VITALS: BP 128/79
[2018-01-23] MEDS: metFORMIN 500 MG (GLUCOPHAGE) TAB PO SCH ×2 (06:13→16:51)
--- NOTE | 2018-01-23 08:01 | Progress Note (SOAP) ---
Subjective Time Seen by a Provider: 07:56 Subjective/Events-last exam Patient on pills for his diabetes. Blood sugar this morning is good at 111. Patient states he'll take medicine Objective Exam Vital Signs Date Time Temp Pulse Resp B/P (MAP) Pulse Ox O2 Delivery O2 Flow Rate FiO2 01/23/18 06:01 98.5 65 20 128/79 (95) 97 Room Air 01/22/18 20:02 Room Air 01/22/18 18:10 96.5 70 16 144/85 (104) 99 Room Air 01/22/18 09:20 92 Room Air 01/22/18 09:00 Room Air I & O 01/23/18 07:00 Intake Total 900 ml Balance 900 ml Capillary Refill : General Appearance: No Apparent Distress, WD/WN HEENT: Normal ENT Inspection Neck: Full Range of Motion, Normal Inspection Respiratory: Lungs Clear, No Accessory Muscle Use, No Respiratory Distress Cardiovascular: Regular Rate, Rhythm, No Murmur Results Lab Laboratory Tests 01/22/18 10:54: Glucometer 110 01/22/18 18:07: Glucometer 103 01/22/18 20:08: Glucometer 184H 01/23/18 05:48: Glucometer 111H Assessment/Plan Assessment/Plan Assess & Plan/Chief Complaint CVA. Diabetes. Hypertension. Non-small cell lung cancer. Right renal mass. Tobaccoism. History of methadone use. Constipation. MARION on CPAP. Severe hypertensive crisis. Small castellanos aneurysm. . 01/16/18. CVA. Diabetes. Hypertension. Non-small cell lung cancer. GI upset. Severe hypertensive crisis. Small castellanos aneurysm. . 01/17/18. CVA. Diabetes is doing good. Hypertension. Non-small cell lung cancer. GI upset better. Severe hypertensive crisis history. Small castellanos aneurysm. . 01/18/18. CVA. Diabetes good. Hypertension good. Non-small cell lung cancer. History of severe hypertensive crisis. small castellanos aneurysm. Patient still needs better r gait. . 01/19/18. CVA. Diabetes good. Hypertension good. Non-small cell lung cancer. History of severe hypertensive crisis. Small castellanos aneurysm. Patient continues to improve. . 01/22/18. CVA. Patient to be put on oral medicine for diabetes. Hypertension good. Non-small cell lung cancer. History of severe hypertensive crisis. Small castellanos aneurysm. . 01/23/18. CVA. Diabetes. Patient on pills. Patient noncompliant with diet area Non-small cell lung cancer. history of severe hypertensive crisis. 's small castellanos aneurysm Clinical Quality Measures DVT/VTE Risk/Contraindication: Risk Factor Score Per Nursin RFS Level Per Nursing on Admit: 4+=Very High XAVIER KIRSHNA DO Jan 23, 2018 08:01
[2018-01-23] MEDS: NICOTINE 21 MG (NICODERM) PATCH TD SCH (08:09)
[2018-01-23] MEDS: NICOTINE PATCH REMOVAL TP SCH (08:09)
[2018-01-23] MEDS: BISACODYL 10 MG SUPP (DULCOLAX) PR SCH ×2 (08:12→20:06)
[2018-01-23] MEDS: amLODIPine 5 MG (NORVASC) TAB PO SCH (08:14)
[2018-01-23] MEDS: guaiFENesin (MUCINEX) 600 MG TAB PO SCH ×2 (08:14→20:05)
[2018-01-23] MEDS: CARBAM PEROX/GLYC/PROP 15 ML DROPS (DEBROX) EACH EAR SCH ×4 (08:14→20:05)
[2018-01-23] MEDS: ASPIRIN E.C. 81 MG (ECOTRIN) TAB PO SCH (08:14)
[2018-01-23] MEDS: DOCUSATE SODIUM 100 MG (COLACE) CAP PO SCH ×2 (08:14→20:05)
[2018-01-23] MEDS: SENNA W/DOCUSATE (SENOKOT S) TABLET PO SCH ×2 (08:14→20:05)
--- NOTE | 2018-01-23 08:33 | PM & R (SOAP) Progress Note ---
Subjective This was a face to face visit with the patient. Date Seen by Provider: Jan 23, 2018 Time Seen by Provider: 07:45 Subjective/Events-last exam Patient was seen in his room this AM with his Spouse She reports that [facility] Physician has a PET scan planned in 2 weeks with central port placement as well at that time Patient min assist for transfers.accucheks noted Patient off Insulin and on pill Objective Physician Exam Last Set of Vital Signs Vital Signs Date Time Temp Pulse Resp B/P (MAP) Pulse Ox O2 Delivery O2 Flow Rate FiO2 01/23/18 06:01 98.5 65 20 128/79 (95) 97 Room Air Capillary Refill : I&O Intake and Output 01/23/18 00:00 Intake Total 1500 ml Balance 1500 ml Intake Oral 1500 ml # Voids 6 # Bowel Movements 4 General: Alert, Oriented X3, No Acute Distress HEENT: Mucous Memb Moist/[place], Other (RT SIDED VISUAL IMPAIRMENT) Neck: Supple, No JVD Heart: Regular Rate Abdomen: Normal Bowel Sounds, Soft, No Tenderness, Other ( DISTENDED) Extremities: No Edema Skin: Other (SMALL RASH OVER LEFT MID ABDOMEN) Neuro: Other (rT HIP FLEX 3+/5 rue 3+/5 lEFT ue 4+/5 lle 4/5) Psych/Mental Status: Mental Status NL Results Lab Data Laboratory Tests 01/20/18 12:01: Glucometer 147H 01/20/18 16:19: Glucometer 165H 01/20/18 20:12: Glucometer 152H 01/21/18 06:49: Glucometer 102 01/21/18 11:04: Glucometer 114H 01/21/18 16:27: Glucometer 118H 01/21/18 20:42: Glucometer 194H 01/22/18 05:28: Glucometer 111H 01/22/18 10:54: Glucometer 110 01/22/18 18:07: Glucometer 103 01/22/18 20:08: Glucometer 184H 01/23/18 05:48: Glucometer 111H Assessment/Plan Assessment and Plan Left occipital stroke with RT sided neglect and weakness and discoordination improving Non small cell Lung CA to have f/u with Medonc in [place] in 2 weeks Rt Renal mass to have f/u as per above new onset Type 2 DM on Oral med HTN controlled Tobaccoism abstaining Constipation improved Urticaria improved HLP MARION on CPAP Plan Continue Pt/OT Team Conference tomorrow Co-Morbidities that are continuing to impact the rehab process: (include details ) SYDNEE GUAN MD Jan 23, 2018 08:33
--- NOTE | 2018-01-23 09:01 | Speech Therapy Daily Note ---
Speech Daily Progress Note Subjective Date Seen by Provider: Jan 23, 2018 Time Seen by Provider: 00:25 Patient cooperative and pleasant. He was drowsy and stated he didn't sleep well last night. Objective Patient completed memory tasks for categories with verbal listing of 3 items at 75% accuracy with moderate verbal repetitions and/or cues. Assessment Assessment Current Status: Good Progress Treatment Plan Continue Plan of Care Communication Comprehension: 6 Expression: 7 Social Cognition Social Interaction: 7 Problem Solvin Memory: 2 Speech Short Term Goals Short Term Goals Short Term Goals Patient will complete auditory/visual linguistic/memory tasks at 80% with min/ mod assist. Patient will complete auditory/visual problem solving tasks at 80% with min/mod assist. Time Frame-ST week Comprehension: 6 Expression: 7 Social Interaction: 7 Problem Solvin Memory: 3 Speech Therapist Goals Therapist Goals Patient will display functional cognition for safety and independence for return to home with min assist. Comprehension: 7 Expression: 7 Social Interaction: 7 Problem Solvin Memory: 4 Speech-Plan Patient/Family Goals Patient/Family Goals: Patient plans to return home with his significant other. Treatment Plan Speech Therapy Treatment Plan: Continue Plan of Care Patient stated he will begin chemo therapy once he returns home. Treatment Duration: Jan 25, 2018 Frequency: 5 times per week Estimated Hrs Per Day: .5 hour per day Rehab Potential: Good Pt/Family Agrees to Plan: Yes Safety Risks/Education Teaching Recipient: Patient Teaching Methods: Discussion Response to Teaching: Verbalize Understanding Time Speech Therapy Time In: 08:30 Speech Therapy Time Out: 08:55 Total Billed Time: 25 Billed Treatment Time 1ADAM BETHANIA ST Jan 23, 2018 09:01
--- NOTE | 2018-01-23 10:58 | Physical Therapy Daily Note ---
PT Daily Note-Current Subjective Patient in therapy gym working with OT, agrees to PT, no complaints of pain. Will be co-treating with OT for about 15 min for balance activities. Appearance Patient in bed post tx with nurse call, phone, tray, all needs met. Mental Status Patient Orientation: Person, Place, Situation Transfers Functional [place] Measure 0=Not Assessed/NA 4=Minimal Assistance 1=Total Assistance 5=Supervision or Setup 2=Maximal Assistance 6=Modified [place] 3=Moderate Assistance 7=Complete IndependenceIRFPAI Quality Coding Scale 6 Independent with activity with or without an assistive device 5 Patient requires set up or clean up by helper. Patient completes activity by themselves 4 Supervision or touching assist (CGA). [place] provide cues , steadying assist 3 The helper provides less than half the effort to complete the activity 2 The helper provides more than half the effort to complete the activity 1 Dependent. The helper does all the effort to complete an activity 7 Patient refused to complete or attempt activity 9 The patient did not perform the activity before the current illness or injury 88 Not attempted due to Medical conditions or safety concerns Transfers (B, C, W/C) (FIM): 4 Scootin Rollin Supine to/from Sit: 6 Sit to/from Stand: 5 Bed to/from Chair: 4 Cues for safety and positioning Weight Bearing Right Lower Extremity: Right Full Weight Bearing Left Lower Extremity: Left Full Weight Bearing Gait Training Gait (FIM): 4 Distance: 200'x2, 100'x2 Gait Level of Assist: 4 Gait Persons Needed: 1 Gait Assistive Device: Cane Large Base Quad Patient ambulated 200'x2 with CGA using a quad cane and ambulated 100'x2 with CGA using rolling walker. Right neglect. Exercises NuStep Minutes: 15 NuStep Workload: 5 Neuromuscular Balance training with OT, catching and kicking ball for 15 min. Treatments balance training, functional strengthening, gait training, bed mobility and transfers Assessment Current Status: Fair Progress improving ambulation PT Short Term Goals Short Term Goals Time Frame: Jan 20, 2018 Transfers (B,C,W/C) (FIM): 5 (met) Gait (FIM): 5 Distance (FIM): 1=929-73 ft Gait Distance Comment: 100' Gait Level of Assist: 5 Gait Assistive Device: Handheld Assist Wheelchair Distance: 50' PT Poker In Goals Poker In Goals PT Poker In Goals Time Frame: Feb 03, 2018 Transfers (B,C,W/C) (FIM): 7 Sit to Lying (QC): 6 Lying-Sitting on Side/Bed(QC): 6 Sit to Stand (QC): 6 Rollin Roll Left to Right (QC): 6 Chair/Yuc-pe-Bovmp Xfer(QC): 6 Car Transfer (QC): 6 Does the Patient Walk: Yes Gait (FIM): 6 Gait distance (FIM): 3=150 ft Distance: 500' Walk 10 feet (QC): 6 Walk 10ft-Uneven Surface(QC): 5 Walk 50ft with 2 Turns (QC): 6 Walk 150 ft (QC): 6 Gait Level of Assist: 6 Gait Assistive Device: None, Cane Small Base Quad Stairs (FIM): 7 # of Steps: 12 1 Step (curb) (QC): 6 4 Steps (QC): 6 12 Steps (QC): 6 Stairs Level Of Assist: 7 Picking up an Object (QC): 6 PT Plan Problem List Problem List: Activity Tolerance, Functional Strength, Safety, Balance, Gait, Transfer Treatment/Plan Treatment Plan: Continue Plan of Care Treatment Plan: Bed Mobility, Concurrent Therapy, Education, Functional Activity Araceli, Functional Strength, Group Therapy, Gait, Safety, Therapeutic Exercise, Transfers Treatment Duration: Feb 03, 2018 Frequency: 6 times per week Estimated Hrs Per Day: 1.5 hours per day Patient and/or Family Agrees t: Yes Safety Risks/Education Patient Education: Gait Training, Transfer Techniques, Correct Positioning, Safety Issues Teaching Recipient: Patient Teaching Methods: Demonstration, Discussion Response to Teaching: Reinforcement Needed Time/GCodes Time In: 1000 Time Out: 1100 Total Billed Treatment Time: 60 Total Billed Treatment 1 visit NM 15' EX 15' GT 30' BETTY PARMAR PT Jan 23, 2018 10:58
--- NOTE | 2018-01-23 11:16 | Occupational Ther Daily Note ---
OT Current Status-Daily Note Subjective Pt in bed, agrees to therapy. Pt has no c/o pain. Mental Status/Objective Functional [place] Measure 0=Not Assessed/NA 4=Minimal Assistance 1=Total Assistance 5=Supervision or Setup 2=Maximal Assistance 6=Modified [place] 3=Moderate Assistance 7=Complete [place] ADL-Treatment Pt declined shower this morning, but would like to complete grooming tasks. Supine to sit with supervision. Pt donned socks with SBA while seated EOB. Don shirt with set up. Sit to stand with SBA. Gait to restroom with FWW, CGA for balance. Pt stood at sink to complete grooming tasks. Pt brushed teeth and combed hair with SBA for balance and safety. Transfer to toilet with CGA. Pt able to complete toileting hygiene, but requires CGA for balance during clothing management. Stood at sink to wash hands with SBA. Functional [place] Measure 0=Not Assessed/NA 4=Minimal Assistance 1=Total Assistance 5=Supervision or Setup 2=Maximal Assistance 6=Modified [place] 3=Moderate Assistance 7=Complete IndependenceIRFPAI Quality Coding Scale 6 Independent with activity with or without an assistive device 5 Patient requires set up or clean up by helper. Patient completes activity by themselves 4 Supervision or touching assist (CGA). [place] provide cues , steadying assist 3 The helper provides less than half the effort to complete the activity 2 The helper provides more than half the effort to complete the activity 1 Dependent. The helper does all the effort to complete an activity 7 Patient refused to complete or attempt activity 9 The patient did not perform the activity before the current illness or injury 88 Not attempted due to Medical conditions or safety concerns Grooming (FIM): 5 Oral Hygiene (QC): 4 Upper Body (FIM): 5 Upper Body Dressing (QC): 5 On/Off Footwear (QC): 4 Toileting (FIM): 4 (CGA) Toileting Hygiene (QC): 4 Toilet/Commode Transfer (FIM): 4 (CGA) Toilet Transfer (QC): 4 Other Treatment Gait to therapy gym with FWW, cues for safety. Pt completed fine motor task with nuts and bolts to increase bilateral coordination, sequencing and activity tolerance. Pt has some difficulty with manipulation of nuts and bolts and occasionally drops them, but is able to complete task with increased time. Putty activity with right hand to increase strength and coordination/ manipulation skills. Pt able to remove small beads from putty with increased time. Pt completed handwriting task to increase fine motor control and ability to perform functional handwriting tasks. Pt is able to write name, birthday, and address with right hand. Pt writes letters with good size and placement with increased time and effort. Fifteen minute Co-treat with PT for balance activities. Pt able to catch and kick ball to work on dynamic standing, bilateral UE coordination, vision, and weight shifting. Pt has decreased standing balance and requires assist for safety. OT focusing on bilateral UE coordination to catch and toss ball while PT focuses on standing balance. Pt in therapy gym with PT after session. OT Short Term Goals Short Term Goals Time Frame: Jan 27, 2018 Eating(FIM): 5 Grooming(FIM): 5 Bathing(FIM): 4 Upper Body Dressing(FIM): 5 Lower Body Dressing(FIM): 4 Toileting(FIM): 4 Transfers (B,C,W/C) (FIM): 5 (met) Toilet/Commode Transfer(FIM): 5 Tub Transfer(FIM): 5 Shower Transfer(FIM): 5 Comprehension(FIM): 6 Expression(FIM): 7 Social Interaction(FIM): 7 Problem Solving(FIM): 4 Memory(FIM): 3 Additional Short Term Goals: 1-Demonstrate ADL Tasks, 2-Verbalize Understanding , 3-ImproveStrength/Araceli 1=Demonstrate adherence to instructed precautions during ADL tasks. 2=Patient will verbalize/demonstrate understanding of assistive devices/ modifications for ADL. 3=Patient will improve strength/tolerance for activity to enable patient to perform ADL's. OT Intermediate Goals Intermediate Goals Time Frame: Feb 10, 2018 Eating (FIM): 7 Eating (QC): 6 Groomin Oral Hygiene (QC): 6 Bathing(FIM): 6 Shower/Bathe Self (QC): 6 Upper Body Dressing(FIM): 7 Upper Body Dressing (QC): 6 Lower Body Dressing(FIM): 6 Lower Body Dressing (QC): 6 On/Off Footwear (QC): 6 Toileting(FIM): 6 Toileting Hygiene (QC): 6 Transfers (B,C,W/C) (FIM): 6 Toilet/Commode Transfer(FIM): 6 Toilet/Commode Transfer (QC): 6 Tub Transfer(FIM): 6 Shower Transfer(FIM): 6 Comprehension(FIM): 7 Expression (FIM): 7 Social Interaction(FIM): 7 Problem Solving(FIM): 5 Memory(FIM): 4 Additional Goals: 1-Demonstrate ADL Tasks, 2-Verbalize Understanding, 3- ImproveStrength/Araceli 1=Demonstrate adherence to instructed precautions during ADL tasks. 2=Patient will verbalize/demonstrate understanding of assistive devices/ modifications for ADL. 3=Patient will improve strength/tolerance for activity to enable patient to perform ADL's. OT Education/Plan Discharge Recommendations Plan/Recommendations: Continue POC Treatment Plan/Plan of Care Patient would benefit from OT for education, treatment and training to promote independence in ADL's, mobility, safety and/or upper extremity function for ADL' s. Plan of Care: ADL Retraining, Functional Mobility, Group Exercise/Act as Ind, UE Funct Exercise/Act, UE Neuromus Re-Ed/Coord, Visual/Perceptual Retrain Treatment Duration: Feb 24, 2018 Frequency: At least 5 of 7 days/Wk (IRF) Estimated Hrs Per Day: 1.5 hours per day Agreement: Yes Rehab Potential: Good Time/GCodes Start Time: 09:00 Stop Time: 10:15 Total Time Billed (hr/min): 75 Billed Treatment Time 1 visit, ADLx2(30minutes), NM(45minutes) Co-treat with PT 15 minutes KEN ESPINOZA OT Jan 23, 2018 11:16
--- NOTE | 2018-01-23 14:05 | Physical Therapy Daily Note ---
PT Daily Note-Current Subjective Patient in bed pre tx, agrees to PT, has some pain in right calf/ankle, negative sabas sign, no pain to palpation with pressure on gastroc or behind knee. Appearance Patient in bed post tx with nurse call, phone, tray, all needs met. Mental Status Patient Orientation: Person, Place, Situation Transfers Functional [place] Measure 0=Not Assessed/NA 4=Minimal Assistance 1=Total Assistance 5=Supervision or Setup 2=Maximal Assistance 6=Modified [place] 3=Moderate Assistance 7=Complete IndependenceIRFPAI Quality Coding Scale 6 Independent with activity with or without an assistive device 5 Patient requires set up or clean up by helper. Patient completes activity by themselves 4 Supervision or touching assist (CGA). [place] provide cues , steadying assist 3 The helper provides less than half the effort to complete the activity 2 The helper provides more than half the effort to complete the activity 1 Dependent. The helper does all the effort to complete an activity 7 Patient refused to complete or attempt activity 9 The patient did not perform the activity before the current illness or injury 88 Not attempted due to Medical conditions or safety concerns Transfers (B, C, W/C) (FIM): 4 Scootin Rollin Supine to/from Sit: 5 Sit to/from Stand: 4 Bed to/from Chair: 4 cues for safety and positioning Weight Bearing Right Lower Extremity: Right Full Weight Bearing Left Lower Extremity: Left Full Weight Bearing Gait Training Gait (FIM): 4 Distance: 200'x2 Gait Level of Assist: 4 Gait Persons Needed: 1 Gait Assistive Device: Cane Large Base Quad Patient ambulates slowly, but no LOB Exercises Standing: Hip Abduction, Hamstring curls, Heel/toe raises, Marching, Mini squats Standing Reps: 15 sidestepping in parallel bars x4 Treatments bed mobility and transfers, ambulation, functional strengthening, patient was also toileted which her performed with CGA Assessment Current Status: Fair Progress improving ambulation PT Short Term Goals Short Term Goals Time Frame: Jan 20, 2018 Transfers (B,C,W/C) (FIM): 5 (met) Gait (FIM): 5 Distance (FIM): 4=487-48 ft Gait Distance Comment: 100' Gait Level of Assist: 5 Gait Assistive Device: Handheld Assist Wheelchair Distance: 50' PT Senior Care Goals Hearings Reporter Goals PT Senior Care Goals Time Frame: Feb 03, 2018 Transfers (B,C,W/C) (FIM): 7 Sit to Lying (QC): 6 Lying-Sitting on Side/Bed(QC): 6 Sit to Stand (QC): 6 Rollin Roll Left to Right (QC): 6 Chair/Zpw-jn-Eqbwd Xfer(QC): 6 Car Transfer (QC): 6 Does the Patient Walk: Yes Gait (FIM): 6 Gait distance (FIM): 3=150 ft Distance: 500' Walk 10 feet (QC): 6 Walk 10ft-Uneven Surface(QC): 5 Walk 50ft with 2 Turns (QC): 6 Walk 150 ft (QC): 6 Gait Level of Assist: 6 Gait Assistive Device: None, Cane Small Base Quad Stairs (FIM): 7 # of Steps: 12 1 Step (curb) (QC): 6 4 Steps (QC): 6 12 Steps (QC): 6 Stairs Level Of Assist: 7 Picking up an Object (QC): 6 PT Plan Problem List Problem List: Activity Tolerance, Functional Strength, Safety, Balance, Gait, Transfer, Bed Mobility Treatment/Plan Treatment Plan: Continue Plan of Care Treatment Plan: Bed Mobility, Concurrent Therapy, Education, Functional Activity Araceli, Functional Strength, Group Therapy, Gait, Safety, Therapeutic Exercise, Transfers Treatment Duration: Feb 03, 2018 Frequency: 6 times per week Estimated Hrs Per Day: 1.5 hours per day Patient and/or Family Agrees t: Yes Safety Risks/Education Patient Education: Gait Training, Transfer Techniques, Correct Positioning, Safety Issues Teaching Recipient: Patient Teaching Methods: Demonstration, Discussion Response to Teaching: Reinforcement Needed Time/GCodes Time In: 1330 Time Out: 1400 Total Billed Treatment Time: 30 Total Billed Treatment 1 visit GT 15' EX 15' BETTY PARMAR PT Jan 23, 2018 14:05
[2018-01-23 15:35] VITALS: BP 103/63
[2018-01-24 06:00] VITALS: BP 127/72
[2018-01-24] MEDS: metFORMIN 500 MG (GLUCOPHAGE) TAB PO SCH ×2 (06:41→17:52)
[2018-01-24] MEDS: inSUlin ASPART (NovoLOG) 1 UNIT/0.01 ML (CHARGE PER UNIT) SC SCH ×4 (06:50→21:10)
--- NOTE | 2018-01-24 07:39 | Progress Note (SOAP) ---
Subjective Time Seen by a Provider: 07:32 Subjective/Events-last exam Patient sugars are doing good with pills. Patient has no complaints this morning. Objective Exam Vital Signs Date Time Temp Pulse Resp B/P (MAP) Pulse Ox O2 Delivery O2 Flow Rate FiO2 01/24/18 06:00 98.1 64 16 127/72 (90) 94 Room Air 01/23/18 20:47 Room Air 01/23/18 19:44 Room Air 01/23/18 18:00 Room Air 01/23/18 15:35 98.0 68 14 103/63 (76) 97 Room Air 01/23/18 09:00 Room Air I & O 01/24/18 07:00 Intake Total 1370 ml Balance 1370 ml Capillary Refill : General Appearance: No Apparent Distress, WD/WN HEENT: Normal ENT Inspection Neck: Full Range of Motion, Normal Inspection Results Lab Laboratory Tests 01/23/18 11:20: Glucometer 96 01/23/18 15:35: Glucometer 119H 01/23/18 20:03: Glucometer 120H 01/24/18 06:43: Glucometer 115H Assessment/Plan Assessment/Plan Assess & Plan/Chief Complaint CVA. Diabetes. Hypertension. Non-small cell lung cancer. Right renal mass. Tobaccoism. History of methadone use. Constipation. MARION on CPAP. Severe hypertensive crisis. Small castellanos aneurysm. . 01/16/18. CVA. Diabetes. Hypertension. Non-small cell lung cancer. GI upset. Severe hypertensive crisis. Small castellanos aneurysm. . 01/17/18. CVA. Diabetes is doing good. Hypertension. Non-small cell lung cancer. GI upset better. Severe hypertensive crisis history. Small castellanos aneurysm. . 01/18/18. CVA. Diabetes good. Hypertension good. Non-small cell lung cancer. History of severe hypertensive crisis. small castellanos aneurysm. Patient still needs better r gait. . 01/19/18. CVA. Diabetes good. Hypertension good. Non-small cell lung cancer. History of severe hypertensive crisis. Small castellanos aneurysm. Patient continues to improve. . 01/22/18. CVA. Patient to be put on oral medicine for diabetes. Hypertension good. Non-small cell lung cancer. History of severe hypertensive crisis. Small castellanos aneurysm. . 01/23/18. CVA. Diabetes. Patient on pills. Patient noncompliant with diet area Non-small cell lung cancer. history of severe hypertensive crisis. 's small castellanos aneurysm. . 01/24/18. CVA. Diabetes under good control. Non-small cell lung cancer. History of severe hypertensive crisis. Small castellanos aneurysm Clinical Quality Measures DVT/VTE Risk/Contraindication: Risk Factor Score Per Nursin RFS Level Per Nursing on Admit: 4+=Very High XAVIER KRISHNA DO Jan 24, 2018 07:39
--- NOTE | 2018-01-24 07:50 | PM & R (SOAP) Progress Note ---
Subjective This was a face to face visit with the patient. Date Seen by Provider: Jan 24, 2018 Time Seen by Provider: 07:30 Subjective/Events-last exam Patient was seen in his room this AM Patient Min assist for transfers Objective Physician Exam Last Set of Vital Signs Vital Signs Date Time Temp Pulse Resp B/P (MAP) Pulse Ox O2 Delivery O2 Flow Rate FiO2 01/24/18 06:00 98.1 64 16 127/72 (90) 94 Room Air Capillary Refill : I&O Intake and Output 01/24/18 00:00 Intake Total 1260 ml Balance 1260 ml Intake Oral 1260 ml # Voids 7 # Bowel Movements 2 General: Alert, Oriented X3, No Acute Distress HEENT: Mucous Memb Moist/[place], Other (RT SIDED VISUAL IMPAIRMENT) Neck: Supple, No JVD Heart: Regular Rate Abdomen: Normal Bowel Sounds, Soft, No Tenderness, Other ( DISTENDED) Extremities: No Edema Skin: Other (SMALL RASH OVER LEFT MID ABDOMEN) Neuro: Other (rT HIP FLEX 3+/5 rue 3+/5 lEFT ue 4+/5 lle 4/5) Psych/Mental Status: Mental Status NL Results Lab Data Laboratory Tests 01/21/18 11:04: Glucometer 114H 01/21/18 16:27: Glucometer 118H 01/21/18 20:42: Glucometer 194H 01/22/18 05:28: Glucometer 111H 01/22/18 10:54: Glucometer 110 01/22/18 18:07: Glucometer 103 01/22/18 20:08: Glucometer 184H 01/23/18 05:48: Glucometer 111H 01/23/18 11:20: Glucometer 96 01/23/18 15:35: Glucometer 119H 01/23/18 20:03: Glucometer 120H 01/24/18 06:43: Glucometer 115H Assessment/Plan Assessment and Plan Left occipital stroke with rt sided neglect and weakness and discoordination improving Non-small cell lung CA to have f/u with Outside Medonc Doc for pet in 2 weeks Rt renal mass to have f/u as per above New onset DM controlled with med HTN controlled Tobaccoism abstaining Constipation improved Urticaria improved HLP MARION on cpap Plan Continue PT/OT Team Conference later today see report for full functional update and POC and ELOS Co-Morbidities that are continuing to impact the rehab process: (include details ) SYDNEE GUAN MD Jan 24, 2018 07:50
[2018-01-24] MEDS: amLODIPine 5 MG (NORVASC) TAB PO SCH (08:19)
[2018-01-24] MEDS: ASPIRIN E.C. 81 MG (ECOTRIN) TAB PO SCH (08:19)
[2018-01-24] MEDS: guaiFENesin (MUCINEX) 600 MG TAB PO SCH ×2 (08:19→21:09)
[2018-01-24] MEDS: SENNA W/DOCUSATE (SENOKOT S) TABLET PO SCH ×2 (08:19→21:09)
[2018-01-24] MEDS: DOCUSATE SODIUM 100 MG (COLACE) CAP PO SCH ×2 (08:19→21:09)
[2018-01-24] MEDS: NICOTINE PATCH REMOVAL TP SCH (08:20)
[2018-01-24] MEDS: BISACODYL 10 MG SUPP (DULCOLAX) PR SCH ×2 (08:20→21:09)
[2018-01-24] MEDS: CARBAM PEROX/GLYC/PROP 15 ML DROPS (DEBROX) EACH EAR SCH ×4 (08:20→21:03)
[2018-01-24] MEDS: NICOTINE 21 MG (NICODERM) PATCH TD SCH (08:21)
--- NOTE | 2018-01-24 09:31 | Speech Therapy Daily Note ---
Speech Daily Progress Note Subjective Date Seen by Provider: Jan 24, 2018 Time Seen by Provider: 00:30 Patient was awake and alert. Objective Patient completed general information tasks with 80% accuracy given min to mod verbal cues or repetitions. Assessment Assessment Current Status: Good Progress Treatment Plan Continue Plan of Care Communication Comprehension: 6 Expression: 7 Social Cognition Social Interaction: 7 Problem Solvin Memory: 2 Speech Short Term Goals Short Term Goals Short Term Goals Patient will complete auditory/visual linguistic/memory tasks at 80% with min/ mod assist. Patient will complete auditory/visual problem solving tasks at 80% with min/mod assist. Time Frame-ST week Comprehension: 6 Expression: 7 Social Interaction: 7 Problem Solvin Memory: 3 Speech Melting Furnace Skimmer Goals Melting Furnace Skimmer Goals Patient will display functional cognition for safety and independence for return to home with min assist. Comprehension: 7 Expression: 7 Social Interaction: 7 Problem Solvin Memory: 4 Speech-Plan Patient/Family Goals Patient/Family Goals: Patient plans to go home with his significant other. Treatment Plan Speech Therapy Treatment Plan: Continue Plan of Care Patient's memory is improving with decreased cuing needed. Treatment Duration: Jan 25, 2018 Frequency: 5 times per week Estimated Hrs Per Day: .5 hour per day Rehab Potential: Good Barriers to Learning: Decreased memory. Pt/Family Agrees to Plan: Yes Safety Risks/Education Teaching Recipient: Patient Teaching Methods: Discussion Response to Teaching: Return Demonstration Education Topics Provided: Memory strategies. Time Speech Therapy Time In: 08:30 Speech Therapy Time Out: 09:00 Total Billed Time: 30 Billed Treatment Time ADAM Núñez [place] [address] Jan 24, 2018 09:31
--- NOTE | 2018-01-24 11:04 | Physical Therapy Daily Note ---
PT Daily Note-Current Subjective Patient in bed pre tx, agrees to PT, has no complaints of pain. Appearance Patient in recliner post tx with nurse call, phone, tray, all needs met. Mental Status Patient Orientation: Normal For Age Transfers Functional [place] Measure 0=Not Assessed/NA 4=Minimal Assistance 1=Total Assistance 5=Supervision or Setup 2=Maximal Assistance 6=Modified [place] 3=Moderate Assistance 7=Complete IndependenceIRFPAI Quality Coding Scale 6 Independent with activity with or without an assistive device 5 Patient requires set up or clean up by helper. Patient completes activity by themselves 4 Supervision or touching assist (CGA). [place] provide cues , steadying assist 3 The helper provides less than half the effort to complete the activity 2 The helper provides more than half the effort to complete the activity 1 Dependent. The helper does all the effort to complete an activity 7 Patient refused to complete or attempt activity 9 The patient did not perform the activity before the current illness or injury 88 Not attempted due to Medical conditions or safety concerns Transfers (B, C, W/C) (FIM): 4 Scootin Rollin Supine to/from Sit: 5 Sit to/from Stand: 4 Bed to/from Chair: 4 Cues for hand placement and positioning. Patient sometimes has a hard time with positioning due to visual impairments. Weight Bearing Right Lower Extremity: Right Full Weight Bearing Left Lower Extremity: Left Full Weight Bearing Gait Training Gait (FIM): 4 Distance: 200'x3 Gait Level of Assist: 4 Gait Persons Needed: 1 Gait Assistive Device: Cane Single Point Patient ambulated twice 200' with a single point cane with CGA, and once 200' with a quad cane with CGA. Patient ambulates slowly and needs cues for direction and obstacles on the right side. No LOB but occasional unsteadiness. Stair Training Stair Training: Handrails/: 2 handrails Stairs (FIM): 2 #of Steps: 8 Stairs: Pattern: Step to Level of Assist: 4 CGA, cues for safety and step placement. Exercises LAQ alternating for 5 min with 3# ankle weights NuStep Minutes: 15 NuStep Workload: 5 Treatments bed mobility and transfers, ambulation, functional strengthening, stair training , and patient was toileted once with CGA Assessment Current Status: Fair Progress steadily improving ambulation and balance PT Short Term Goals Short Term Goals Time Frame: Jan 20, 2018 Transfers (B,C,W/C) (FIM): 5 (met) Gait (FIM): 5 Distance (FIM): 8=883-49 ft Gait Distance Comment: 100' Gait Level of Assist: 5 Gait Assistive Device: Handheld Assist Wheelchair Distance: 50' PT Custodial Goals Order Checker Goals PT Custodial Goals Time Frame: Feb 03, 2018 Transfers (B,C,W/C) (FIM): 7 Sit to Lying (QC): 6 Lying-Sitting on Side/Bed(QC): 6 Sit to Stand (QC): 6 Rollin Roll Left to Right (QC): 6 Chair/Ard-qb-Afykf Xfer(QC): 6 Car Transfer (QC): 6 Does the Patient Walk: Yes Gait (FIM): 6 Gait distance (FIM): 3=150 ft Distance: 500' Walk 10 feet (QC): 6 Walk 10ft-Uneven Surface(QC): 5 Walk 50ft with 2 Turns (QC): 6 Walk 150 ft (QC): 6 Gait Level of Assist: 6 Gait Assistive Device: None, Cane Small Base Quad Stairs (FIM): 7 # of Steps: 12 1 Step (curb) (QC): 6 4 Steps (QC): 6 12 Steps (QC): 6 Stairs Level Of Assist: 7 Picking up an Object (QC): 6 PT Plan Problem List Problem List: Activity Tolerance, Functional Strength, Safety, Balance, Gait, Transfer, Bed Mobility Treatment/Plan Treatment Plan: Continue Plan of Care Treatment Plan: Bed Mobility, Concurrent Therapy, Education, Functional Activity Araceli, Functional Strength, Group Therapy, Gait, Safety, Therapeutic Exercise, Transfers Treatment Duration: Feb 03, 2018 Frequency: 6 times per week Estimated Hrs Per Day: 1.5 hours per day Patient and/or Family Agrees t: Yes Safety Risks/Education Patient Education: Gait Training, Transfer Techniques, Steps, Correct Positioning, Safety Issues Teaching Recipient: Patient Teaching Methods: Demonstration, Discussion Response to Teaching: Reinforcement Needed Time/GCodes Time In: 0900 Time Out: 1000 Total Billed Treatment Time: 60 Total Billed Treatment 1 visit EX 20' GT 40' BETTY PARMAR PT Jan 24, 2018 11:04
--- NOTE | 2018-01-24 11:49 | Occupational Ther Daily Note ---
OT Current Status-Daily Note Subjective Pt alert, sitting in recliner. Family present in room. Pt agrees to therapy. Mental Status/Objective Patient Orientation: Person, Place, Time, Situation Functional [place] Measure 0=Not Assessed/NA 4=Minimal Assistance 1=Total Assistance 5=Supervision or Setup 2=Maximal Assistance 6=Modified [place] 3=Moderate Assistance 7=Complete [place] ADL-Treatment Pt still has difficulty with vision. Placing items in/on designated small area is difficulty for pt. Functional [place] Measure 0=Not Assessed/NA 4=Minimal Assistance 1=Total Assistance 5=Supervision or Setup 2=Maximal Assistance 6=Modified [place] 3=Moderate Assistance 7=Complete IndependenceIRFPAI Quality Coding Scale 6 Independent with activity with or without an assistive device 5 Patient requires set up or clean up by helper. Patient completes activity by themselves 4 Supervision or touching assist (CGA). [place] provide cues , steadying assist 3 The helper provides less than half the effort to complete the activity 2 The helper provides more than half the effort to complete the activity 1 Dependent. The helper does all the effort to complete an activity 7 Patient refused to complete or attempt activity 9 The patient did not perform the activity before the current illness or injury 88 Not attempted due to Medical conditions or safety concerns Eating (FIM): 7 (Opens containers/packages by self then uses regular utensils to feed self. Pt typically chooses finger foods due to tremors of L hand.) Eating (QC): 6 Grooming (FIM): 5 (SBA standing at sink for safety. Completes by self.) Oral Hygiene (QC): 4 Bathing (FIM): 5 (SBA for safety using shower bench, grabbar and hand held shower.) Bathing Location: L Arm, R Arm, L Upper Leg, R Upper Leg, L Lower Leg ( including foot), R Lower Leg (including foot), Chest, Abdomen, Buttocks, Perineal Area Shower/Bathe Self (QC): 4 Upper Body (FIM): 5 (After set up, pt complete own dressing.) Upper Body Dressing (QC): 5 Lower Body Dressing (FIM): 5 (SBA for safety. Dresses self after setup.) Lower Body Dressing (QC): 4 (SBA for safety. Dresses self after set up.) On/Off Footwear (QC): 5 Shower Transfer(FIM): 5 (SBA using shower bench and grabbar.) Other Treatment Visual perceptual task involving hand eye coordination, dexterity and problem solving skills. Pt required minimal verbal cues and set up to complete each task. Pt able to place puzzle pieces in designated areas with minimal difficulty. Pt building shapes with nut/bolts and small planks with holes. Pt had to verbalize strategies to accomplish task and took increased time to think through sequences. Pt is demonstrating progress with visual cut/neglect by looking for items needed on R side. Pt does have difficulty with fine motor tasks due to tremors in L hand and decreased coordination in R hand. Pt has increased in R hand coordination though still has deficits. After therapy, pt sitting in recliner with call light/phone in reach. All needs met in room. OT Short Term Goals Short Term Goals Time Frame: Jan 27, 2018 Eating(FIM): 5 Grooming(FIM): 5 Bathing(FIM): 4 Upper Body Dressing(FIM): 5 Lower Body Dressing(FIM): 4 Toileting(FIM): 4 Transfers (B,C,W/C) (FIM): 5 (met) Toilet/Commode Transfer(FIM): 5 Tub Transfer(FIM): 5 Shower Transfer(FIM): 5 Comprehension(FIM): 6 Expression(FIM): 7 Social Interaction(FIM): 7 Problem Solving(FIM): 4 Memory(FIM): 3 Additional Short Term Goals: 1-Demonstrate ADL Tasks, 2-Verbalize Understanding , 3-ImproveStrength/Araceli 1=Demonstrate adherence to instructed precautions during ADL tasks. 2=Patient will verbalize/demonstrate understanding of assistive devices/ modifications for ADL. 3=Patient will improve strength/tolerance for activity to enable patient to perform ADL's. OT Fdc Goals Post Anesthesia Care Unit Nurse Goals Time Frame: Feb 10, 2018 Eating (FIM): 7 Eating (QC): 6 Groomin Oral Hygiene (QC): 6 Bathing(FIM): 6 Shower/Bathe Self (QC): 6 Upper Body Dressing(FIM): 7 Upper Body Dressing (QC): 6 Lower Body Dressing(FIM): 6 Lower Body Dressing (QC): 6 On/Off Footwear (QC): 6 Toileting(FIM): 6 Toileting Hygiene (QC): 6 Transfers (B,C,W/C) (FIM): 6 Toilet/Commode Transfer(FIM): 6 Toilet/Commode Transfer (QC): 6 Tub Transfer(FIM): 6 Shower Transfer(FIM): 6 Comprehension(FIM): 7 Expression (FIM): 7 Social Interaction(FIM): 7 Problem Solving(FIM): 5 Memory(FIM): 4 Additional Goals: 1-Demonstrate ADL Tasks, 2-Verbalize Understanding, 3- ImproveStrength/Araceli 1=Demonstrate adherence to instructed precautions during ADL tasks. 2=Patient will verbalize/demonstrate understanding of assistive devices/ modifications for ADL. 3=Patient will improve strength/tolerance for activity to enable patient to perform ADL's. OT Education/Plan Discharge Recommendations Plan/Recommendations: Continue POC Treatment Plan/Plan of Care Patient would benefit from OT for education, treatment and training to promote independence in ADL's, mobility, safety and/or upper extremity function for ADL' s. Plan of Care: ADL Retraining, Functional Mobility, Group Exercise/Act as Ind, UE Funct Exercise/Act, UE Neuromus Re-Ed/Coord, Visual/Perceptual Retrain Treatment Duration: Feb 24, 2018 Frequency: At least 5 of 7 days/Wk (IRF) Estimated Hrs Per Day: 1.5 hours per day Agreement: Yes Rehab Potential: Good Time/GCodes Start Time: 10:45 Stop Time: 12:00 Total Time Billed (hr/min): 75 Billed Treatment Time 1 visit-ADL 4 (60 min) FA 1 (15 min) SHAY DAVIDSON Jan 24, 2018 11:49
--- NOTE | 2018-01-24 15:12 | Physical Therapy Daily Note ---
PT Daily Note-Current Subjective Pt L sidelying asleep upon arrival. Pt agrees to PT. Pain Location: No Pain Reported Mental Status Patient Orientation: Person, Place Transfers Functional [place] Measure 0=Not Assessed/NA 4=Minimal Assistance 1=Total Assistance 5=Supervision or Setup 2=Maximal Assistance 6=Modified [place] 3=Moderate Assistance 7=Complete IndependenceIRFPAI Quality Coding Scale 6 Independent with activity with or without an assistive device 5 Patient requires set up or clean up by helper. Patient completes activity by themselves 4 Supervision or touching assist (CGA). [place] provide cues , steadying assist 3 The helper provides less than half the effort to complete the activity 2 The helper provides more than half the effort to complete the activity 1 Dependent. The helper does all the effort to complete an activity 7 Patient refused to complete or attempt activity 9 The patient did not perform the activity before the current illness or injury 88 Not attempted due to Medical conditions or safety concerns Scootin Rollin Supine to/from Sit: 5 Sit to/from Stand: 5 Sit to Lying (QC): 5 Sit to Stand (QC): 5 Weight Bearing Right Lower Extremity: Right Full Weight Bearing Left Lower Extremity: Left Full Weight Bearing Gait Training Does the Patient Walk?: Yes Distance (FIM): 3=150 ft Distance: 200' Walk 10 feet (QC): 5 Walk 50 ft with 2 Turns(QC): 5 Walk 150 ft (QC): 5 Gait Level of Assist: 5 Gait Assistive Device: Cane Single Point Pt walks with slow juliana but otherwise normalized gait. Pt needs increased focus to walk this way though. Wheelchair Training Does the Pt Use a Wheelchair?: No Stair Training #of Steps: 6 1 Step (curb) (QC): 4 4 Steps (QC): 4 Stairs: Pattern: Step to Level of Assist: 4 Exercises Standing: Hamstring curls, Heel/toe raises, Marching, Side steps, Step-ups Standing Reps: 15 Treatments Pt transfers from bed to standing using SPC at [facility]. Pt ambulates in hallway using SPC at [facility]. Pt completes Standing Ex in //bars before returning to room to use restroom. Pt returns to bed to rest at end of tx with all needs met. Pt has all four bed rails up per Nursing request for safety since pt will get up and take himself. Assessment Current Status: Good Progress Pt needs VC at times due to confusion. Pt needs occasional rest breaks. PT Short Term Goals Short Term Goals Time Frame: Jan 20, 2018 Transfers (B,C,W/C) (FIM): 5 (met) Gait (FIM): 5 Distance (FIM): 1=382-45 ft Gait Distance Comment: 100' Gait Level of Assist: 5 Gait Assistive Device: Handheld Assist Wheelchair Distance: 50' PT Call Center Analyst Goals Half-Way Goals PT Call Center Analyst Goals Time Frame: Feb 03, 2018 Transfers (B,C,W/C) (FIM): 7 Sit to Lying (QC): 6 Lying-Sitting on Side/Bed(QC): 6 Sit to Stand (QC): 6 Rollin Roll Left to Right (QC): 6 Chair/Iwn-yn-Xdpjj Xfer(QC): 6 Car Transfer (QC): 6 Does the Patient Walk: Yes Gait (FIM): 6 Gait distance (FIM): 3=150 ft Distance: 500' Walk 10 feet (QC): 6 Walk 10ft-Uneven Surface(QC): 5 Walk 50ft with 2 Turns (QC): 6 Walk 150 ft (QC): 6 Gait Level of Assist: 6 Gait Assistive Device: None, Cane Small Base Quad Stairs (FIM): 7 # of Steps: 12 1 Step (curb) (QC): 6 4 Steps (QC): 6 12 Steps (QC): 6 Stairs Level Of Assist: 7 Picking up an Object (QC): 6 PT Plan Problem List Problem List: Activity Tolerance, Functional Strength, Safety Treatment/Plan Treatment Plan: Continue Plan of Care Treatment Plan: Bed Mobility, Concurrent Therapy, Education, Functional Activity Araceli, Functional Strength, Group Therapy, Gait, Safety, Therapeutic Exercise, Transfers Treatment Duration: Feb 03, 2018 Frequency: 6 times per week Estimated Hrs Per Day: 1.5 hours per day Patient and/or Family Agrees t: Yes Safety Risks/Education Patient Education: Gait Training, Transfer Techniques, Correct Positioning, Safety Issues Teaching Recipient: Patient Teaching Methods: Discussion Response to Teaching: Verbalize Understanding Time/GCodes Time In: 1430 Time Out: 1500 Total Billed Treatment Time: 30 Total Billed Treatment 1, GT (15m) & EX (15m) G Codes Necessary: OVIDIO Gonzalez EMBOSSER OPERATOR Jan 24, 2018 15:12
[2018-01-24 18:00] VITALS: BP 156/80
[2018-01-25] MEDS: metFORMIN 500 MG (GLUCOPHAGE) TAB PO SCH ×2 (06:02→17:40)
[2018-01-25] MEDS: inSUlin ASPART (NovoLOG) 1 UNIT/0.01 ML (CHARGE PER UNIT) SC SCH ×4 (06:16→20:42)
[2018-01-25 06:39] VITALS: BP 138/74
--- NOTE | 2018-01-25 07:38 | Occupational Ther Daily Note ---
OT Current Status-Daily Note Subjective Pt seen in gym after PT, agreeable to OT. No pain mentioned. Appearance Alert, cooperative Mental Status/Objective Functional [place] Measure 0=Not Assessed/NA 4=Minimal Assistance 1=Total Assistance 5=Supervision or Setup 2=Maximal Assistance 6=Modified [place] 3=Moderate Assistance 7=Complete [place] ADL-Treatment Functional [place] Measure 0=Not Assessed/NA 4=Minimal Assistance 1=Total Assistance 5=Supervision or Setup 2=Maximal Assistance 6=Modified [place] 3=Moderate Assistance 7=Complete IndependenceIRFPAI Quality Coding Scale 6 Independent with activity with or without an assistive device 5 Patient requires set up or clean up by helper. Patient completes activity by themselves 4 Supervision or touching assist (CGA). [place] provide cues , steadying assist 3 The helper provides less than half the effort to complete the activity 2 The helper provides more than half the effort to complete the activity 1 Dependent. The helper does all the effort to complete an activity 7 Patient refused to complete or attempt activity 9 The patient did not perform the activity before the current illness or injury 88 Not attempted due to Medical conditions or safety concerns Toileting (FIM): 5 (SBA) Other Treatment Pt completed 12 minutes bilat UE exercise on arm bike set at 20W resistance, with emphasis on coordination of movement between UEs. Also completed band design duplication activity and clip dominoes, to work on problem solving, R visual field attendance, R UE coordination. Noted to have some difficulty matching similar colors and calling them by different names. Walked back to room with SBA, SPC and toileted in standing, using grab bar, with SBA. Refuses CGA when walking. Left up at EOB, ready for group. Education OT Patient Education: Progress toward Goal/Update tx plan, Purpose of tx/ functional activities, Safety issues Teaching Recipient: Patient Teaching Methods: Discussion Response to Teaching: Verbalize Understanding OT Short Term Goals Short Term Goals Time Frame: Jan 27, 2018 Eating(FIM): 5 Grooming(FIM): 5 Bathing(FIM): 4 Upper Body Dressing(FIM): 5 Lower Body Dressing(FIM): 4 Toileting(FIM): 4 Transfers (B,C,W/C) (FIM): 5 (met) Toilet/Commode Transfer(FIM): 5 Tub Transfer(FIM): 5 Shower Transfer(FIM): 5 Comprehension(FIM): 6 Expression(FIM): 7 Social Interaction(FIM): 7 Problem Solving(FIM): 4 Memory(FIM): 3 Additional Short Term Goals: 1-Demonstrate ADL Tasks, 2-Verbalize Understanding , 3-ImproveStrength/Araceli 1=Demonstrate adherence to instructed precautions during ADL tasks. 2=Patient will verbalize/demonstrate understanding of assistive devices/ modifications for ADL. 3=Patient will improve strength/tolerance for activity to enable patient to perform ADL's. OT Facility Specialist Goals Halfway Goals Time Frame: Feb 10, 2018 Eating (FIM): 7 Eating (QC): 6 Groomin Oral Hygiene (QC): 6 Bathing(FIM): 6 Shower/Bathe Self (QC): 6 Upper Body Dressing(FIM): 7 Upper Body Dressing (QC): 6 Lower Body Dressing(FIM): 6 Lower Body Dressing (QC): 6 On/Off Footwear (QC): 6 Toileting(FIM): 6 Toileting Hygiene (QC): 6 Transfers (B,C,W/C) (FIM): 6 Toilet/Commode Transfer(FIM): 6 Toilet/Commode Transfer (QC): 6 Tub Transfer(FIM): 6 Shower Transfer(FIM): 6 Comprehension(FIM): 7 Expression (FIM): 7 Social Interaction(FIM): 7 Problem Solving(FIM): 5 Memory(FIM): 4 Additional Goals: 1-Demonstrate ADL Tasks, 2-Verbalize Understanding, 3- ImproveStrength/Araceli 1=Demonstrate adherence to instructed precautions during ADL tasks. 2=Patient will verbalize/demonstrate understanding of assistive devices/ modifications for ADL. 3=Patient will improve strength/tolerance for activity to enable patient to perform ADL's. OT Education/Plan Discharge Recommendations Plan/Recommendations: Continue POC Treatment Plan/Plan of Care Patient would benefit from OT for education, treatment and training to promote independence in ADL's, mobility, safety and/or upper extremity function for ADL' s. Plan of Care: ADL Retraining, Functional Mobility, Group Exercise/Act as Ind, UE Funct Exercise/Act, UE Neuromus Re-Ed/Coord, Visual/Perceptual Retrain Treatment Duration: Feb 24, 2018 Frequency: At least 5 of 7 days/Wk (IRF) Estimated Hrs Per Day: 1.5 hours per day Agreement: Yes Rehab Potential: Good Time/GCodes Start Time: 10:00 Stop Time: 11:00 Total Time Billed (hr/min): 60 Billed Treatment Time visit, 10 minutes ADL, 50 minutes neuromotor MICHELLE MORRIS OT Jan 25, 2018 07:38
[2018-01-25] MEDS: NICOTINE PATCH REMOVAL TP SCH (09:01)
[2018-01-25] MEDS: DOCUSATE SODIUM 100 MG (COLACE) CAP PO SCH ×2 (09:02→20:43)
[2018-01-25] MEDS: CARBAM PEROX/GLYC/PROP 15 ML DROPS (DEBROX) EACH EAR SCH ×4 (09:02→21:38)
[2018-01-25] MEDS: NICOTINE 21 MG (NICODERM) PATCH TD SCH (09:02)
[2018-01-25] MEDS: SENNA W/DOCUSATE (SENOKOT S) TABLET PO SCH ×2 (09:03→20:43)
[2018-01-25] MEDS: BISACODYL 10 MG SUPP (DULCOLAX) PR SCH ×2 (09:03→20:42)
[2018-01-25] MEDS: guaiFENesin (MUCINEX) 600 MG TAB PO SCH ×2 (09:03→20:43)
[2018-01-25] MEDS: ASPIRIN E.C. 81 MG (ECOTRIN) TAB PO SCH (09:03)
[2018-01-25] MEDS: amLODIPine 5 MG (NORVASC) TAB PO SCH (09:03)
--- NOTE | 2018-01-25 09:08 | Speech Therapy Daily Note ---
Speech Daily Progress Note Subjective Date Seen by Provider: Jan 25, 2018 Time Seen by Provider: 00:30 Patient awake and alert, participated well with activities. Objective Patient completed memory exercises with 75% accuracy given min to mod verbal cues and/or repetitions. Assessment Assessment Current Status: Good Progress Treatment Plan Continue Plan of Care Communication Comprehension: 6 Expression: 7 Social Cognition Social Interaction: 7 Problem Solvin Memory: 2 Speech Short Term Goals Short Term Goals Short Term Goals Patient will complete auditory/visual linguistic/memory tasks at 80% with min/ mod assist. Patient will complete auditory/visual problem solving tasks at 80% with min/mod assist. Time Frame-ST week Comprehension: 6 Expression: 7 Social Interaction: 7 Problem Solvin Memory: 3 Speech Chief Controller Center Goals Chief Controller Center Goals Patient will display functional cognition for safety and independence for return to home with min assist. Comprehension: 7 Expression: 7 Social Interaction: 7 Problem Solvin Memory: 4 Speech-Plan Patient/Family Goals Patient/Family Goals: Patient plans to return home with his significant other. Treatment Plan Speech Therapy Treatment Plan: Continue Plan of Care Patient is progressing with memory and problem solving abilities. Treatment Duration: Jan 25, 2018 Frequency: 5 times per week Estimated Hrs Per Day: .5 hour per day Rehab Potential: Good Barriers to Learning: Patient has mild retention of information deficits. Pt/Family Agrees to Plan: Yes Safety Risks/Education Teaching Recipient: Patient Teaching Methods: Discussion Response to Teaching: Verbalize Understanding Education Topics Provided: Safety within his immediate living environment. Time Speech Therapy Time In: 08:30 Speech Therapy Time Out: 09:00 Total Billed Time: 30 Billed Treatment Time 1, [facility] Jan 25, 2018 09:08
--- NOTE | 2018-01-25 10:06 | Physical Therapy Daily Note ---
PT Daily Note-Current Subjective Agreeable to PT. Wanting to know if he can be up on his own in his room. Mental Status Patient Orientation: Person, Place, Time, Situation Transfers Functional [place] Measure 0=Not Assessed/NA 4=Minimal Assistance 1=Total Assistance 5=Supervision or Setup 2=Maximal Assistance 6=Modified [place] 3=Moderate Assistance 7=Complete IndependenceIRFPAI Quality Coding Scale 6 Independent with activity with or without an assistive device 5 Patient requires set up or clean up by helper. Patient completes activity by themselves 4 Supervision or touching assist (CGA). [place] provide cues , steadying assist 3 The helper provides less than half the effort to complete the activity 2 The helper provides more than half the effort to complete the activity 1 Dependent. The helper does all the effort to complete an activity 7 Patient refused to complete or attempt activity 9 The patient did not perform the activity before the current illness or injury 88 Not attempted due to Medical conditions or safety concerns Transfers (B, C, W/C) (FIM): 5 SBA with transfers for safety and occasional verbal cues to sequence. Multiple sit to stand transfers throughout visit, including a toilet transfer. Weight Bearing Right Lower Extremity: Right Full Weight Bearing Left Lower Extremity: Left Full Weight Bearing Gait Training Does the Patient Walk?: Yes Gait (FIM): 4 Distance (FIM): 3=150 ft Distance: Pt walked multiple bouts of 150 ft with cane with SB-CGA Gait Assistive Device: Cane Single Point Gait training paired with functional balance training with use of cane and SB- CGA. pt ambulated long distances with no obstacles and also walked across uneven surfaces and up/down a curb multiple times with cues to sequence properly and occas CGA for safety. Pt has right neglect that lends to hitting door frames or not acknowledging obstacles on the right at times. he is able to compensate with cues. Stair Training Stair Training: Handrails/: 1 handrail Stairs (FIM): 4 #of Steps: 12 Stairs: Pattern: Step to skilled cues to sequence and for safety. Exercises NuStep Minutes: 15 NuStep Workload: 6 (to increaase LE strength and functional activity tolerance to improve safe mobility) Assessment Current Status: Good Progress Progressing and needs very little touching assist but supervision necessary for safety due to decreased functional balance and right sided neglect. Do not recommend pt to be up ad kinza at this time, nursing and patient aware. PT Short Term Goals Short Term Goals Time Frame: Jan 20, 2018 Transfers (B,C,W/C) (FIM): 5 (met) Gait (FIM): 5 Distance (FIM): 6=104-35 ft Gait Distance Comment: 100' Gait Level of Assist: 5 Gait Assistive Device: Handheld Assist Wheelchair Distance: 50' PT Internet Security Specialist Goals Internet Security Specialist Goals PT Internet Security Specialist Goals Time Frame: Feb 03, 2018 Transfers (B,C,W/C) (FIM): 7 Sit to Lying (QC): 6 Lying-Sitting on Side/Bed(QC): 6 Sit to Stand (QC): 6 Rollin Roll Left to Right (QC): 6 Chair/Ofm-ee-Rntek Xfer(QC): 6 Car Transfer (QC): 6 Does the Patient Walk: Yes Gait (FIM): 6 Gait distance (FIM): 3=150 ft Distance: 500' Walk 10 feet (QC): 6 Walk 10ft-Uneven Surface(QC): 5 Walk 50ft with 2 Turns (QC): 6 Walk 150 ft (QC): 6 Gait Level of Assist: 6 Gait Assistive Device: None, Cane Small Base Quad Stairs (FIM): 7 # of Steps: 12 1 Step (curb) (QC): 6 4 Steps (QC): 6 12 Steps (QC): 6 Stairs Level Of Assist: 7 Picking up an Object (QC): 6 PT Plan Problem List Problem List: Activity Tolerance, Functional Strength, Safety, Balance, Gait, Transfer, Bed Mobility Treatment/Plan Treatment Plan: Continue Plan of Care Treatment Plan: Bed Mobility, Concurrent Therapy, Education, Functional Activity Araceli, Functional Strength, Group Therapy, Gait, Safety, Therapeutic Exercise, Transfers Treatment Duration: Feb 03, 2018 Frequency: 6 times per week Estimated Hrs Per Day: 1.5 hours per day Patient and/or Family Agrees t: Yes Safety Risks/Education Patient Education: Transfer Techniques, Steps, Safety Issues Teaching Recipient: Patient Teaching Methods: Demonstration, Discussion Response to Teaching: Reinforcement Needed Time/GCodes Time In: 855 Time Out: 957 Total Billed Treatment Time: 62 Total Billed Treatment visit FA 47 EX 15 SHAY COTTO PT Jan 25, 2018 10:06
--- NOTE | 2018-01-25 12:03 | Therapy Group Daily Note ---
Therapy Daily Group Note Patient Education Topic Home Safety Other/Notes Pt was an active participant in OT/PT lunch group. He introduced himself and shared a Thanksgiving memory for socialization. He contributed to discussion on Thanksgiving trivia and also discussion/education on home safety, in preparation for discharge. He walked back to his room with SBA, SPC and was left up in bed, all needs met. Start Time: 11:00 Stop Time: 12:00 Total Billed Treatment Time: 60 Total Billed Treatment visit, 60 minutes group MICHELLE MORRIS OT Jan 25, 2018 12:03
[2018-01-25 16:42] VITALS: BP 131/65
[2018-01-25] MEDS: HYDROcodone/APAP 5 MG/325 MG (LORTAB) TAB PO PRN (21:39)
[2018-01-25] MEDS: ALPRAZolam 0.25 MG (XANAX) TAB PO PRN (21:39)
[2018-01-26 05:25] VITALS: BP 125/72
[2018-01-26] MEDS: inSUlin ASPART (NovoLOG) 1 UNIT/0.01 ML (CHARGE PER UNIT) SC SCH ×4 (05:27→19:27)
[2018-01-26] MEDS: metFORMIN 500 MG (GLUCOPHAGE) TAB PO SCH ×2 (06:11→16:53)
--- NOTE | 2018-01-26 09:04 | Speech Therapy Daily Note ---
Speech Daily Progress Note Subjective Date Seen by Provider: Jan 26, 2018 Time Seen by Provider: 00:30 Patient was awake and alert, just finishing his breakfast. His significant other was present. Objective Patient completed word matching to verbally presented definitions at 75% with min to mod verbal cues. Assessment Assessment Current Status: Good Progress Treatment Plan Continue Plan of Care Communication Comprehension: 6 Expression: 7 Social Cognition Social Interaction: 7 Problem Solvin Memory: 2 Speech Short Term Goals Short Term Goals Short Term Goals Patient will complete auditory/visual linguistic/memory tasks at 80% with min/ mod assist. Patient will complete auditory/visual problem solving tasks at 80% with min/mod assist. Time Frame-ST week Comprehension: 6 Expression: 7 Social Interaction: 7 Problem Solvin Memory: 3 Speech Intermediate Goals Intermediate Goals Patient will display functional cognition for safety and independence for return to home with min assist. Comprehension: 7 Expression: 7 Social Interaction: 7 Problem Solvin Memory: 4 Speech-Plan Patient/Family Goals Patient/Family Goals: Patient plans to return home within the next week with his significant other. Treatment Plan Speech Therapy Treatment Plan: Continue Plan of Care Patient is progressing toward his return home. Treatment Duration: Jan 25, 2018 Frequency: 5 times per week Estimated Hrs Per Day: .5 hour per day Rehab Potential: Good Barriers to Learning: Retention of information is delayed. Pt/Family Agrees to Plan: Yes Safety Risks/Education Teaching Recipient: Patient, Significant Other Teaching Methods: Discussion Response to Teaching: Verbalize Understanding Education Topics Provided: Decreasing his impulsive behaviors for safety. Time Speech Therapy Time In: 08:30 Speech Therapy Time Out: 09:00 Total Billed Time: 30 Billed Treatment Time 1AD[address] [facility] Jan 26, 2018 09:04
[2018-01-26] MEDS: DOCUSATE SODIUM 100 MG (COLACE) CAP PO SCH ×2 (09:50→19:03)
[2018-01-26] MEDS: NICOTINE PATCH REMOVAL TP SCH (09:50)
[2018-01-26] MEDS: NICOTINE 21 MG (NICODERM) PATCH TD SCH (09:50)
[2018-01-26] MEDS: BISACODYL 10 MG SUPP (DULCOLAX) PR SCH ×2 (09:51→19:03)
[2018-01-26] MEDS: SENNA W/DOCUSATE (SENOKOT S) TABLET PO SCH ×2 (09:51→19:03)
[2018-01-26] MEDS: guaiFENesin (MUCINEX) 600 MG TAB PO SCH ×2 (09:59→20:00)
[2018-01-26] MEDS: amLODIPine 5 MG (NORVASC) TAB PO SCH (09:59)
[2018-01-26] MEDS: ASPIRIN E.C. 81 MG (ECOTRIN) TAB PO SCH (09:59)
[2018-01-26] MEDS: CARBAM PEROX/GLYC/PROP 15 ML DROPS (DEBROX) EACH EAR SCH ×4 (10:00→20:00)
--- NOTE | 2018-01-26 10:33 | Physical Therapy Daily Note ---
PT Daily Note-Current Subjective Patient in bed pre tx, agrees to PT, has some pain/discomfort in his right ankle and lower leg. Will be co-treating with OT for 30 min for balance activities. Appearance Patient in therapy gym post tx with OT. Mental Status Patient Orientation: Normal For Age Transfers Functional [place] Measure 0=Not Assessed/NA 4=Minimal Assistance 1=Total Assistance 5=Supervision or Setup 2=Maximal Assistance 6=Modified [place] 3=Moderate Assistance 7=Complete IndependenceIRFPAI Quality Coding Scale 6 Independent with activity with or without an assistive device 5 Patient requires set up or clean up by helper. Patient completes activity by themselves 4 Supervision or touching assist (CGA). [place] provide cues , steadying assist 3 The helper provides less than half the effort to complete the activity 2 The helper provides more than half the effort to complete the activity 1 Dependent. The helper does all the effort to complete an activity 7 Patient refused to complete or attempt activity 9 The patient did not perform the activity before the current illness or injury 88 Not attempted due to Medical conditions or safety concerns Transfers (B, C, W/C) (FIM): 4 Scootin Rollin Supine to/from Sit: 6 Sit to/from Stand: 4 Bed to/from Chair: 4 CGA for sit to stand and transfers Weight Bearing Right Lower Extremity: Right Full Weight Bearing Left Lower Extremity: Left Full Weight Bearing Gait Training Gait (FIM): 4 Distance: 200'x2 Gait Level of Assist: 4 Gait Persons Needed: 1 Gait Assistive Device: Cane Single Point Patient is SBA for most of the ambulation but needs CGA when turning. Exercises Standing: Hip Abduction, Heel/toe raises, Marching Standing Reps: 20 LAQ alternating for 5 min with 3# ankle weights Neuromuscular balance activity co-treatment with OT, catching and kicking and bouncing ball Treatments bed mobility and transfers, ambulation, balance activity, functional strengthening Assessment Current Status: Fair Progress improving balance and ambulation, patient still has right neglect but it has improved some PT Short Term Goals Short Term Goals Time Frame: Jan 20, 2018 Transfers (B,C,W/C) (FIM): 5 (met) Gait (FIM): 5 Distance (FIM): 0=931-59 ft Gait Distance Comment: 100' Gait Level of Assist: 5 Gait Assistive Device: Handheld Assist Wheelchair Distance: 50' PT Linoleum Printer Goals Penitentiary Goals PT Penitentiary Goals Time Frame: Feb 03, 2018 Transfers (B,C,W/C) (FIM): 7 Sit to Lying (QC): 6 Lying-Sitting on Side/Bed(QC): 6 Sit to Stand (QC): 6 Rollin Roll Left to Right (QC): 6 Chair/Qrx-zx-Vrhzy Xfer(QC): 6 Car Transfer (QC): 6 Does the Patient Walk: Yes Gait (FIM): 6 Gait distance (FIM): 3=150 ft Distance: 500' Walk 10 feet (QC): 6 Walk 10ft-Uneven Surface(QC): 5 Walk 50ft with 2 Turns (QC): 6 Walk 150 ft (QC): 6 Gait Level of Assist: 6 Gait Assistive Device: None, Cane Small Base Quad Stairs (FIM): 7 # of Steps: 12 1 Step (curb) (QC): 6 4 Steps (QC): 6 12 Steps (QC): 6 Stairs Level Of Assist: 7 Picking up an Object (QC): 6 PT Plan Problem List Problem List: Activity Tolerance, Functional Strength, Safety, Balance, Gait, Transfer Treatment/Plan Treatment Plan: Continue Plan of Care Treatment Plan: Bed Mobility, Concurrent Therapy, Education, Functional Activity Araceli, Functional Strength, Group Therapy, Gait, Safety, Therapeutic Exercise, Transfers Treatment Duration: Feb 03, 2018 Frequency: 6 times per week Estimated Hrs Per Day: 1.5 hours per day Patient and/or Family Agrees t: Yes Safety Risks/Education Patient Education: Gait Training, Transfer Techniques, Correct Positioning, Safety Issues Teaching Recipient: Patient Teaching Methods: Demonstration, Discussion Response to Teaching: Reinforcement Needed Time/GCodes Time In: 0930 Time Out: 1030 Total Billed Treatment Time: 60 Total Billed Treatment 1 visit GT 15' EX 15' NM 30' BETTY PARMAR PT Jan 26, 2018 10:33
--- NOTE | 2018-01-26 11:01 | Occupational Ther Daily Note ---
OT Current Status-Daily Note Subjective Pt with PT in therapy gym. Pt agrees to therapy. No c/o pain at this time. Mental Status/Objective Patient Orientation: Person, Place, Time, Situation Functional [place] Measure 0=Not Assessed/NA 4=Minimal Assistance 1=Total Assistance 5=Supervision or Setup 2=Maximal Assistance 6=Modified [place] 3=Moderate Assistance 7=Complete [place] ADL-Treatment Pt declines to complete shower with OT. Wants to complete shower with girlfriend assisting. Functional [place] Measure 0=Not Assessed/NA 4=Minimal Assistance 1=Total Assistance 5=Supervision or Setup 2=Maximal Assistance 6=Modified [place] 3=Moderate Assistance 7=Complete IndependenceIRFPAI Quality Coding Scale 6 Independent with activity with or without an assistive device 5 Patient requires set up or clean up by helper. Patient completes activity by themselves 4 Supervision or touching assist (CGA). [place] provide cues , steadying assist 3 The helper provides less than half the effort to complete the activity 2 The helper provides more than half the effort to complete the activity 1 Dependent. The helper does all the effort to complete an activity 7 Patient refused to complete or attempt activity 9 The patient did not perform the activity before the current illness or injury 88 Not attempted due to Medical conditions or safety concerns Other Treatment PT/OT co-treat with skilled care cues while working on dynamic standing balance. PT working on standing balance and LE strengthening. OT working on UE strengthening and R neglect. Pt able to catch and kick different size and wts of therapy balls. Pt completed nut/bolt activity to work on R neglect, multiple step task, fine motor coordination and strengthening for daily functional tasks. Working on handwriting to increase hand eye coordination and dexterity to sign name for documents. After therapy, pt in room with girlfriend , call light/phone in reach. All needs met in room. OT Short Term Goals Short Term Goals Time Frame: Jan 27, 2018 Eating(FIM): 5 Grooming(FIM): 5 Bathing(FIM): 4 Upper Body Dressing(FIM): 5 Lower Body Dressing(FIM): 4 Toileting(FIM): 4 Transfers (B,C,W/C) (FIM): 5 (met) Toilet/Commode Transfer(FIM): 5 Tub Transfer(FIM): 5 Shower Transfer(FIM): 5 Comprehension(FIM): 6 Expression(FIM): 7 Social Interaction(FIM): 7 Problem Solving(FIM): 4 Memory(FIM): 3 Additional Short Term Goals: 1-Demonstrate ADL Tasks, 2-Verbalize Understanding , 3-ImproveStrength/Araceli 1=Demonstrate adherence to instructed precautions during ADL tasks. 2=Patient will verbalize/demonstrate understanding of assistive devices/ modifications for ADL. 3=Patient will improve strength/tolerance for activity to enable patient to perform ADL's. OT Mcc Goals Administrative Analyst Goals Time Frame: Feb 10, 2018 Eating (FIM): 7 Eating (QC): 6 Groomin Oral Hygiene (QC): 6 Bathing(FIM): 6 Shower/Bathe Self (QC): 6 Upper Body Dressing(FIM): 7 Upper Body Dressing (QC): 6 Lower Body Dressing(FIM): 6 Lower Body Dressing (QC): 6 On/Off Footwear (QC): 6 Toileting(FIM): 6 Toileting Hygiene (QC): 6 Transfers (B,C,W/C) (FIM): 6 Toilet/Commode Transfer(FIM): 6 Toilet/Commode Transfer (QC): 6 Tub Transfer(FIM): 6 Shower Transfer(FIM): 6 Comprehension(FIM): 7 Expression (FIM): 7 Social Interaction(FIM): 7 Problem Solving(FIM): 5 Memory(FIM): 4 Additional Goals: 1-Demonstrate ADL Tasks, 2-Verbalize Understanding, 3- ImproveStrength/Araceli 1=Demonstrate adherence to instructed precautions during ADL tasks. 2=Patient will verbalize/demonstrate understanding of assistive devices/ modifications for ADL. 3=Patient will improve strength/tolerance for activity to enable patient to perform ADL's. OT Education/Plan Discharge Recommendations Plan/Recommendations: Continue POC Treatment Plan/Plan of Care Patient would benefit from OT for education, treatment and training to promote independence in ADL's, mobility, safety and/or upper extremity function for ADL' s. Plan of Care: ADL Retraining, Functional Mobility, Group Exercise/Act as Ind, UE Funct Exercise/Act, UE Neuromus Re-Ed/Coord, Visual/Perceptual Retrain Treatment Duration: Feb 24, 2018 Frequency: At least 5 of 7 days/Wk (IRF) Estimated Hrs Per Day: 1.5 hours per day Agreement: Yes Rehab Potential: Good Time/GCodes Start Time: 10:00 Stop Time: 11:00 Total Time Billed (hr/min): 60 Billed Treatment Time 1 visit-NM 4 (60 min) Co-treat with PT 30 min ([id number]) SHAY DAVIDSON Jan 26, 2018 11:01
--- NOTE | 2018-01-26 14:31 | Therapy Group Daily Note ---
Therapy Daily Group Note Patient Education Topic Exercises Exercises LE Seated Exercise, Sit to/from Stand, Walking, UE Exercise Other/Notes Pt ambulated with cane to therapy gym for OT/PT group. Group consisted of introductions(name, place born, youthful memory), socialization, pt lead UE/LE seated exercises, benefits of exercise, walking/transfers and cognitive task naming Annamarie calhoun. Pt introduced self appropriately and actively listened to peers. Pt was able to participate in exercises and lead one exercise. Pt demonstrated ability to transfer and ambulate to designated areas with supervision. Pt required modifications to chose correct name of song. Pt contributed to conversations and was able to verbalie understanding of educational topics. After therapy, pt lying in bed with call light/phone in reach. All needs met in room. Start Time: 13:00 Stop Time: 14:10 Total Billed Treatment Time: 70 Total Billed Treatment 1-GRP SHAY DAVIDSON Jan 26, 2018 14:31
[2018-01-26 18:00] VITALS: BP 133/69
--- NOTE | 2018-01-26 19:22 | PM & R (SOAP) Progress Note ---
Subjective This was a face to face visit with the patient. Date Seen by Provider: Jan 26, 2018 Time Seen by Provider: 19:00 Subjective/Events-last exam Patient was seen in his room this evening Patient Min assist for transfers Review of Systems Neurological: Weakness Objective Physician Exam Last Set of Vital Signs Vital Signs Date Time Temp Pulse Resp B/P (MAP) Pulse Ox O2 Delivery O2 Flow Rate FiO2 01/26/18 18:00 98.5 66 20 133/69 (90) 97 Room Air Capillary Refill : I&O Intake and Output 01/26/18 00:00 Intake Total 950 ml Output Total 200 ml Balance 750 ml Intake Oral 950 ml Output Urine Total 200 ml # Voids 3 # Bowel Movements 4 General: Alert, Oriented X3, No Acute Distress HEENT: Mucous Memb Moist/[place], Other (RT SIDED VISUAL IMPAIRMENT) Neck: Supple, No JVD Heart: Regular Rate Abdomen: Normal Bowel Sounds, Soft, No Tenderness, Other ( DISTENDED) Extremities: No Edema Skin: Other (SMALL RASH OVER LEFT MID ABDOMEN) Neuro: Other (rT HIP FLEX 3+/5 rue 3+/5 lEFT ue 4+/5 lle 4/5) Psych/Mental Status: Mental Status NL Results Lab Data Laboratory Tests 01/23/18 20:03: Glucometer 120H 01/24/18 06:43: Glucometer 115H 01/24/18 11:14: Glucometer 101 01/24/18 15:56: Glucometer 117H 01/24/18 20:49: Glucometer 135H 01/25/18 05:20: Glucometer 102 01/25/18 10:57: Glucometer 82 01/25/18 16:00: Glucometer 121H 01/25/18 20:13: Glucometer 179H 01/26/18 05:17: Glucometer 96 01/26/18 11:18: Glucometer 88 01/26/18 15:40: Glucometer 102 Assessment/Plan Assessment and Plan left occipital stroke with Rt sided neglect and weakness and discoordination improving Non small cell lung CA to have f/u with Medonc at an outside clinic in 2 weeks Rt renal mass to have f/u as per above New onset DM controlled with med HTN controlled Tobaccoism abstaining Constipation improving Urticaria improved HLP MARION on CPAP Plan Continue PT/OT Discharge set for 11-29-18 to home with spouse Co-Morbidities that are continuing to impact the rehab process: (include details ) SYDNEE GUAN MD Jan 26, 2018 19:22
[2018-01-27] MEDS: metFORMIN 500 MG (GLUCOPHAGE) TAB PO SCH ×2 (06:06→18:20)
[2018-01-27 06:11] VITALS: BP 136/74
[2018-01-27] MEDS: inSUlin ASPART (NovoLOG) 1 UNIT/0.01 ML (CHARGE PER UNIT) SC SCH ×4 (06:11→21:33)
--- NOTE | 2018-01-27 07:45 | PM & R (SOAP) Progress Note ---
Subjective This was a face to face visit with the patient. Date Seen by Provider: Jan 27, 2018 Time Seen by Provider: 07:25 Subjective/Events-last exam Patient was seen in his room this AM Last night patient c/o Numbness in rt arm none now resting comfortably in bed.Patient min assist for transfers Objective Physician Exam Last Set of Vital Signs Vital Signs Date Time Temp Pulse Resp B/P (MAP) Pulse Ox O2 Delivery O2 Flow Rate FiO2 01/27/18 06:11 98.7 67 16 136/74 (94) 98 Room Air Capillary Refill : I&O Intake and Output 01/27/18 00:00 Intake Total 1480 ml Balance 1480 ml Intake Oral 1480 ml # Voids 8 # Bowel Movements 1 General: Alert, Oriented X3, No Acute Distress HEENT: Mucous Memb Moist/[place], Other (RT SIDED VISUAL IMPAIRMENT) Neck: Supple, No JVD Heart: Regular Rate Abdomen: Normal Bowel Sounds, Soft, No Tenderness, Other ( DISTENDED) Extremities: No Edema Skin: Other (SMALL RASH OVER LEFT MID ABDOMEN) Neuro: Other (rT HIP FLEX 3+/5 rue 3+/5 lEFT ue 4+/5 lle 4/5) Psych/Mental Status: Mental Status NL Results Lab Data Laboratory Tests 01/24/18 11:14: Glucometer 101 01/24/18 15:56: Glucometer 117H 01/24/18 20:49: Glucometer 135H 01/25/18 05:20: Glucometer 102 01/25/18 10:57: Glucometer 82 01/25/18 16:00: Glucometer 121H 01/25/18 20:13: Glucometer 179H 01/26/18 05:17: Glucometer 96 01/26/18 11:18: Glucometer 88 01/26/18 15:40: Glucometer 102 01/26/18 19:23: Glucometer 135H 01/27/18 06:04: Glucometer 124H Assessment/Plan Assessment and Plan Left occipital stroke with RT sided neglect and weakness and discoordination improving Non-small cell lung CA to have f/u with medonc Outside office in 1 week Rt renal mass to have f/u as per above New onset DM controlled with med HTN controlled Tobaccoism abstaining Constipation improved urticaria resolved HLP MARION on CPAP Plan Continue PT/OT Discharge scheduled for 02-01-18 to home with family Co-Morbidities that are continuing to impact the rehab process: (include details ) SYDNEE GUAN MD Jan 27, 2018 07:45
[2018-01-27] MEDS: amLODIPine 5 MG (NORVASC) TAB PO SCH (08:27)
[2018-01-27] MEDS: ASPIRIN E.C. 81 MG (ECOTRIN) TAB PO SCH (08:27)
[2018-01-27] MEDS: guaiFENesin (MUCINEX) 600 MG TAB PO SCH (08:27)
[2018-01-27] MEDS: BISACODYL 10 MG SUPP (DULCOLAX) PR SCH (08:28)
[2018-01-27] MEDS: SENNA W/DOCUSATE (SENOKOT S) TABLET PO SCH (08:28)
[2018-01-27] MEDS: NICOTINE 21 MG (NICODERM) PATCH TD SCH (08:28)
[2018-01-27] MEDS: CARBAM PEROX/GLYC/PROP 15 ML DROPS (DEBROX) EACH EAR SCH ×4 (08:29→19:10)
[2018-01-27] MEDS: DOCUSATE SODIUM 100 MG (COLACE) CAP PO SCH (08:29)
[2018-01-27] MEDS: NICOTINE PATCH REMOVAL TP SCH (08:30)
[2018-01-27] MEDS ORDERED: NICOTINE 21 MG (NICODERM) PATCH TD PRN (09:45)
[2018-01-27] MEDS ORDERED: PATCH REMOVAL TP PRN (09:45)
[2018-01-27] MEDS ORDERED: guaiFENesin (MUCINEX) 600 MG TAB PO PRN (09:45)
[2018-01-27] MEDS ORDERED: DOCUSATE SODIUM 100 MG (COLACE) CAP PO PRN (09:45)
[2018-01-27] MEDS ORDERED: BISACODYL 10 MG SUPP (DULCOLAX) PR PRN (09:45)
[2018-01-27] MEDS ORDERED: SENNA W/DOCUSATE (SENOKOT S) TABLET PO PRN (09:45)
[2018-01-27 10:11] LABS: BASOPHILS # (AUTO) 0.1 10^3/uL (0.0-0.1); BASOPHILS % (AUTO) 1 % (0-10); EOSINOPHILS # (AUTO) 0.4 10^3/uL (0.0-0.3); EOSINOPHILS % (AUTO) 6 % (0-10); HEMATOCRIT 44 % (40-54); HEMOGLOBIN 14.6 G/DL (13.3-17.7); LYMPHOCYTES # (AUTO) 1.1 X 10^3 (1.0-4.0); LYMPHOCYTES % (AUTO) 17 % (12-44); MEAN CORPUSCULAR HEMOGLOBIN 32 PG (25-34); MEAN CORPUSCULAR HGB CONC 33 G/DL (32-36); MEAN CORPUSCULAR VOLUME 95 FL (80-99); MONOCYTES # (AUTO) 0.5 X 10^3 (0.0-1.0); MONOCYTES % (AUTO) 8 % (0-12); NEUTROPHILS # (AUTO) 4.5 X 10^3 (1.8-7.8); NEUTROPHILS % (AUTO) 68 % (42-75); PLATELET COUNT 249 10^3/uL (130-400); RED BLOOD COUNT 4.63 10^6/uL (4.35-5.85); RED CELL DISTRIBUTION WIDTH 13.1 % (10.0-14.5); WHITE BLOOD COUNT 6.5 10^3/uL (4.3-11.0)
--- NOTE | 2018-01-27 10:25 | Physical Therapy Daily Note ---
PT Daily Note-Current Subjective Pt up in chair, agreeable. No c/o. Mental Status Patient Orientation: Person, Place, Time, Situation Transfers Functional [place] Measure 0=Not Assessed/NA 4=Minimal Assistance 1=Total Assistance 5=Supervision or Setup 2=Maximal Assistance 6=Modified [place] 3=Moderate Assistance 7=Complete IndependenceIRFPAI Quality Coding Scale 6 Independent with activity with or without an assistive device 5 Patient requires set up or clean up by helper. Patient completes activity by themselves 4 Supervision or touching assist (CGA). [place] provide cues , steadying assist 3 The helper provides less than half the effort to complete the activity 2 The helper provides more than half the effort to complete the activity 1 Dependent. The helper does all the effort to complete an activity 7 Patient refused to complete or attempt activity 9 The patient did not perform the activity before the current illness or injury 88 Not attempted due to Medical conditions or safety concerns Sit to/from Stand: 4 Sit to Stand (QC): 4 Weight Bearing Right Lower Extremity: Right Full Weight Bearing Left Lower Extremity: Left Full Weight Bearing Gait Training Does the Patient Walk?: Yes Gait (FIM): 4 Distance (FIM): 3=150 ft Distance: 150 Walk 10 feet (QC): 4 Walk 50 ft with 2 Turns(QC): 4 Walk 150 ft (QC): 4 Gait Level of Assist: 4 Gait Assistive Device: Cane Single Point Pt mildly unsteady but no milka LOB this date. Occasional VCS to attend to (R) side as he bumped into doorway, chairs if not cued. Exercises NuStep Minutes: 10 NuStep Workload: 5 Treatments Ambulation with SPC, NuStep for (B) reciprocal integration, functional strengthening. Returned to recliner with needs met. Assessment Current Status: Good Progress Pt tolerated well. No milka LOB but continues to demonstrate (R) neglect. PT Short Term Goals Short Term Goals Time Frame: Jan 20, 2018 Transfers (B,C,W/C) (FIM): 5 (met) Gait (FIM): 5 Distance (FIM): 9=980-28 ft Gait Distance Comment: 100' Gait Level of Assist: 5 Gait Assistive Device: Handheld Assist Wheelchair Distance: 50' PT Mcc Goals Fibreglass Laminator Goals PT Fibreglass Laminator Goals Time Frame: Feb 03, 2018 Transfers (B,C,W/C) (FIM): 7 Sit to Lying (QC): 6 Lying-Sitting on Side/Bed(QC): 6 Sit to Stand (QC): 6 Rollin Roll Left to Right (QC): 6 Chair/Bqd-gc-Vltcl Xfer(QC): 6 Car Transfer (QC): 6 Does the Patient Walk: Yes Gait (FIM): 6 Gait distance (FIM): 3=150 ft Distance: 500' Walk 10 feet (QC): 6 Walk 10ft-Uneven Surface(QC): 5 Walk 50ft with 2 Turns (QC): 6 Walk 150 ft (QC): 6 Gait Level of Assist: 6 Gait Assistive Device: None, Cane Small Base Quad Stairs (FIM): 7 # of Steps: 12 1 Step (curb) (QC): 6 4 Steps (QC): 6 12 Steps (QC): 6 Stairs Level Of Assist: 7 Picking up an Object (QC): 6 PT Plan Problem List Problem List: Activity Tolerance, Functional Strength, Safety, Balance, Gait, Transfer, Bed Mobility Treatment/Plan Treatment Plan: Continue Plan of Care Treatment Plan: Bed Mobility, Concurrent Therapy, Education, Functional Activity Araceli, Functional Strength, Group Therapy, Gait, Safety, Therapeutic Exercise, Transfers Treatment Duration: Feb 03, 2018 Frequency: 6 times per week Estimated Hrs Per Day: 1.5 hours per day Patient and/or Family Agrees t: Yes Safety Risks/Education Patient Education: Safety Issues Teaching Recipient: Patient Teaching Methods: Discussion Response to Teaching: Reinforcement Needed Time/GCodes Time In: 1003 Time Out: 1020 Total Billed Treatment Time: 17 Total Billed Treatment 1, FA x 17' G Codes Necessary: CHAUNCEY Geiger DPGarfield Jan 27, 2018 10:25
[2018-01-27 10:31] LABS: ALANINE AMINOTRANSFERASE 22 U/L (0-55); ALBUMIN 3.7 GM/DL (3.2-4.5); ALKALINE PHOSPHATASE 110 U/L (40-136); BILIRUBIN,TOTAL 0.4 MG/DL (0.1-1.0); BUN/CREATININE RATIO 12; CALCIUM 9.3 MG/DL (8.5-10.1); CARBON DIOXIDE 22 MMOL/L (21-32); CHLORIDE 108 MMOL/L (98-107); CREATININE SERUM 0.84 MG/DL (0.60-1.30); GFR ESTIMATED > 60; GLUCOSE 155 MG/DL (70-105); POTASSIUM 4.1 MMOL/L (3.6-5.0); SODIUM 141 MMOL/L (135-145)
--- NOTE | 2018-01-27 13:05 | Progress Note-Hospitalist ---
Subjective HPI/CC On Admission Date Seen by Provider: Jan 27, 2018 Time Seen by Provider: 12:00 CC: Medical management following CVA and diagnosis of small cell lung cancer HPI: This is a 58-year-old white male with no known prior medical history since he never saw doctor who presents to inpatient rehabilitation following a very debilitating stroke due to ischemic process in the left occipital lobe accompanied by hypertensive crisis admitted to [facility] and was then diagnosed with small cell lung cancer with metastasis and a renal mass of uncertain etiology. He arrived last night and his blood sugars have been running 200 without prior history of diabetes until diagnosed recently of 6.7 hemoglobin A1c per [facility] records. He is having a rash and that has occurred just in the last couple of days that has worsened and he has been on the Nicoderm patch for the past one week due to smoking cessation requirement. He hasn't had a bowel movement for for 3 days so will initiate bowel regimen. I suspect Nicoderm patch as the cause of the rash after a review all of his home medications he was discharged on from [facility] so we'll hold that among other medications until rash resolves and initiate insulin regimen along with long-acting insulin regimen along with IV steroids. Subjective/Events-last exam Nurse asked me to come and provide reassurance to the patient due to right arm and right leg altered sensation last night Labs were reviewed Sugars are improved control Bowels are moving Eating and drinking Using CPAP every night After in depth and detailed discussion with the patient he seems to be reassured and will expect his recovery to include altered sensation of the right arm since his stroke. I am assuming he is most concerned with his inability to go back to work with the question of that after I updated him on the plan and I told him that I could not predict what his deficit will be in preparation of going back to work Review of Systems Neurological: Numbness Objective Exam Vital Signs Vital Signs Date Time Temp Pulse Resp B/P (MAP) Pulse Ox O2 Delivery O2 Flow Rate FiO2 01/27/18 09:00 98 Room Air 01/27/18 06:11 98.7 67 16 136/74 (94) Capillary Refill : General Appearance: No Apparent Distress, WD/WN, Chronically ill, Obese Respiratory: Chest Non Tender, Lungs Clear, Normal Breath Sounds, No Accessory Muscle Use, No Respiratory Distress Cardiovascular: Regular Rate, Rhythm, No Edema, No Gallop, No JVD, No Murmur, Normal Peripheral Pulses Extremity: Normal Capillary Refill, Normal Inspection, Normal Range of Motion, Non Tender, No Calf Tenderness, No Pedal Edema Neurologic/Psychiatric: Alert, Oriented x3, No Motor/Sensory Deficits, Normal Mood/Affect Results/Procedures Lab Laboratory Tests 01/27/18 10:01 Patient resulted labs reviewed. Assessment/Plan Assessment and Plan Assess & Plan/Chief Complaint Assessment: Subacute left occipital lobe ischemic stroke Status post hypertensive crisis New onset diabetes mellitus improved control Acute urticaria from Nicotine patch now resolved since no longer using it Constipation resolved Hyperlipidemia Smoker counseled cessation Visual loss from stroke MARION on CPAP Altered sensation of the right arm last night Plan: SSI B Levemir Reassured patient today Diagnosis/Problems Diagnosis/Problems (1) Cerebrovascular accident (CVA) Status: Acute Qualifiers: CVA mechanism: unspecified Qualified Codes: I63.9 - Cerebral infarction, unspecified (2) Urticaria due to drug allergy Status: Resolved Assessment & Plan: place Nicoderm on allergy list Resolution Date/Time: 01/14/18 @ 11:30 (3) Small cell lung cancer Status: Acute (4) Renal mass of unknown nature Status: Acute (5) Smoker Status: Chronic (6) Hypertension Status: Chronic Qualifiers: Hypertension type: essential hypertension Qualified Codes: I10 - Essential (primary) hypertension (7) Hyperlipemia Status: Chronic Qualifiers: Hyperlipidemia type: mixed hyperlipidemia Qualified Codes: E78.2 - Mixed hyperlipidemia (8) Constipation Status: Acute Qualifiers: Constipation type: slow transit constipation Qualified Codes: K59.01 - Slow transit constipation (9) Peripheral vision loss Status: Chronic Qualifiers: Laterality: unspecified laterality Qualified Codes: H53.459 - Other localized visual field defect, unspecified eye (10) MARION on CPAP Status: Chronic Clinical Quality Measures DVT/VTE Risk/Contraindication: Risk Factor Score Per Nursin RFS Level Per Nursing on Admit: 4+=Very High ZENA MCCABE DO Jan 27, 2018 13:05
[2018-01-27 18:00] VITALS: BP 124/75
[2018-01-28] MEDS: metFORMIN 500 MG (GLUCOPHAGE) TAB PO SCH ×2 (06:14→17:04)
[2018-01-28] MEDS: inSUlin ASPART (NovoLOG) 1 UNIT/0.01 ML (CHARGE PER UNIT) SC SCH ×4 (06:14→21:23)
[2018-01-28 06:19] VITALS: BP 120/58
[2018-01-28] MEDS: CARBAM PEROX/GLYC/PROP 15 ML DROPS (DEBROX) EACH EAR SCH ×4 (08:25→19:12)
[2018-01-28] MEDS: amLODIPine 5 MG (NORVASC) TAB PO SCH (08:28)
[2018-01-28] MEDS: ASPIRIN E.C. 81 MG (ECOTRIN) TAB PO SCH (08:28)
[2018-01-28 17:25] VITALS: BP 130/74
[2018-01-29 05:53] VITALS: BP 123/66
[2018-01-29] MEDS: inSUlin ASPART (NovoLOG) 1 UNIT/0.01 ML (CHARGE PER UNIT) SC SCH ×4 (06:12→21:53)
[2018-01-29] MEDS: metFORMIN 500 MG (GLUCOPHAGE) TAB PO SCH ×2 (06:32→18:18)
--- NOTE | 2018-01-29 08:13 | Progress Note (SOAP) ---
Subjective Time Seen by a Provider: 08:09 Subjective/Events-last exam Patient doing better. Patient uses a cane to get around. Patient states she's going home this Objective Exam Vital Signs Date Time Temp Pulse Resp B/P (MAP) Pulse Ox O2 Delivery O2 Flow Rate FiO2 01/29/18 05:53 97.9 60 18 123/66 (85) 95 Room Air 01/28/18 20:23 Room Air 01/28/18 17:25 98.2 71 16 130/74 (92) 97 Room Air 01/28/18 09:25 Room Air I & O 01/29/18 07:00 Intake Total 1950 ml Balance 1950 ml Capillary Refill : General Appearance: No Apparent Distress, WD/WN HEENT: Normal ENT Inspection Neck: Full Range of Motion Respiratory: Lungs Clear, No Accessory Muscle Use, No Respiratory Distress Cardiovascular: Regular Rate, Rhythm Gastrointestinal: non tender, soft Results Lab Laboratory Tests 01/28/18 11:03: Glucometer 161H 01/28/18 17:02: Glucometer 105 01/28/18 21:17: Glucometer 123H 01/29/18 05:48: Glucometer 102 Assessment/Plan Assessment/Plan Assess & Plan/Chief Complaint CVA. Diabetes. Hypertension. Non-small cell lung cancer. Right renal mass. Tobaccoism. History of methadone use. Constipation. MARION on CPAP. Severe hypertensive crisis. Small castellanos aneurysm. . 01/16/18. CVA. Diabetes. Hypertension. Non-small cell lung cancer. GI upset. Severe hypertensive crisis. Small castellanos aneurysm. . 01/17/18. CVA. Diabetes is doing good. Hypertension. Non-small cell lung cancer. GI upset better. Severe hypertensive crisis history. Small castellanos aneurysm. . 01/18/18. CVA. Diabetes good. Hypertension good. Non-small cell lung cancer. History of severe hypertensive crisis. small castellanos aneurysm. Patient still needs better r gait. . 01/19/18. CVA. Diabetes good. Hypertension good. Non-small cell lung cancer. History of severe hypertensive crisis. Small castellanos aneurysm. Patient continues to improve. . 01/22/18. CVA. Patient to be put on oral medicine for diabetes. Hypertension good. Non-small cell lung cancer. History of severe hypertensive crisis. Small castellanos aneurysm. . 01/23/18. CVA. Diabetes. Patient on pills. Patient noncompliant with diet area Non-small cell lung cancer. history of severe hypertensive crisis. 's small castellanos aneurysm. . 01/24/18. CVA. Diabetes under good control. Non-small cell lung cancer. History of severe hypertensive crisis. Small castellanos aneurysm. . 01/29/18. CVA. Diabetes under good control. Malignant hypertension. Small castellanos aneurysm. Non-small cell lung cancer. Patient only using a cane Clinical Quality Measures DVT/VTE Risk/Contraindication: Risk Factor Score Per Nursin RFS Level Per Nursing on Admit: 4+=Very High XAVIER KRISHNA DO Jan 29, 2018 08:13
--- NOTE | 2018-01-29 09:01 | Speech Therapy Daily Note ---
Speech Daily Progress Note Subjective Date Seen by Provider: Jan 29, 2018 Time Seen by Provider: 00:15 Patient had just finished taking a shower independently when we began ST. Objective Patient completed complex y/n questions with minimal assistance. Treatment Plan Continue Plan of Care Communication Comprehension: 6 Expression: 7 Social Cognition Social Interaction: 7 Problem Solvin Memory: 2 Speech Short Term Goals Short Term Goals Short Term Goals Patient will complete auditory/visual linguistic/memory tasks at 80% with min/ mod assist. Patient will complete auditory/visual problem solving tasks at 80% with min/mod assist. Time Frame-ST week Comprehension: 6 Expression: 7 Social Interaction: 7 Problem Solvin Memory: 3 Speech Mcc Goals Mcc Goals Patient will display functional cognition for safety and independence for return to home with min assist. Comprehension: 7 Expression: 7 Social Interaction: 7 Problem Solvin Memory: 4 Speech-Plan Patient/Family Goals Patient/Family Goals: Patient is scheduled to return home with his significant other in 3 days. Treatment Plan Speech Therapy Treatment Plan: Continue Plan of Care Patient has made excellent gains in cognitive issues. Treatment Duration: Jan 25, 2018 Frequency: 5 times per week Estimated Hrs Per Day: .5 hour per day Rehab Potential: Good Pt/Family Agrees to Plan: Yes Safety Risks/Education Teaching Recipient: Patient Teaching Methods: Discussion Response to Teaching: Verbalize Understanding Time Speech Therapy Time In: 08:45 Speech Therapy Time Out: 09:00 Total Billed Time: 15 Billed Treatment Time 1, FLORA House Jan 29, 2018 09:01
[2018-01-29] MEDS: ASPIRIN E.C. 81 MG (ECOTRIN) TAB PO SCH (09:45)
[2018-01-29] MEDS: amLODIPine 5 MG (NORVASC) TAB PO SCH (09:45)
[2018-01-29] MEDS: CARBAM PEROX/GLYC/PROP 15 ML DROPS (DEBROX) EACH EAR SCH ×4 (09:46→21:53)
--- NOTE | 2018-01-29 10:02 | Physical Therapy Daily Note ---
PT Daily Note-Current Subjective Patient in bed pre tx, agrees to PT, no complaints of pain. Appearance Patient in recliner post tx with nurse call, phone, tray, all needs met. Mental Status Patient Orientation: Normal For Age Transfers Functional [place] Measure 0=Not Assessed/NA 4=Minimal Assistance 1=Total Assistance 5=Supervision or Setup 2=Maximal Assistance 6=Modified [place] 3=Moderate Assistance 7=Complete IndependenceIRFPAI Quality Coding Scale 6 Independent with activity with or without an assistive device 5 Patient requires set up or clean up by helper. Patient completes activity by themselves 4 Supervision or touching assist (CGA). [place] provide cues , steadying assist 3 The helper provides less than half the effort to complete the activity 2 The helper provides more than half the effort to complete the activity 1 Dependent. The helper does all the effort to complete an activity 7 Patient refused to complete or attempt activity 9 The patient did not perform the activity before the current illness or injury 88 Not attempted due to Medical conditions or safety concerns Transfers (B, C, W/C) (FIM): 5 Scootin Rollin Supine to/from Sit: 6 Sit to/from Stand: 5 Bed to/from Chair: 5 Weight Bearing Right Lower Extremity: Right Full Weight Bearing Left Lower Extremity: Left Full Weight Bearing Gait Training Gait (FIM): 5 Distance: 200'x3 Gait Level of Assist: 5 Gait Persons Needed: 1 Gait Assistive Device: Cane Single Point no LOB or unsteadiness Exercises LAQ alternating with 3# ankle weights for 5 min NuStep Minutes: 15 NuStep Workload: 5 Neuromuscular marching 50', sidestepping 50', backwards walking 50' Treatments bed mobility and transfers, ambulation, functional strengthening, balance training Assessment Current Status: Fair Progress improving balance during ambulation PT Short Term Goals Short Term Goals Time Frame: Jan 20, 2018 Transfers (B,C,W/C) (FIM): 5 (met) Gait (FIM): 5 Distance (FIM): 1=045-27 ft Gait Distance Comment: 100' Gait Level of Assist: 5 Gait Assistive Device: Handheld Assist Wheelchair Distance: 50' PT Alf Goals Talent Sourcer Goals PT Talent Sourcer Goals Time Frame: Feb 03, 2018 Transfers (B,C,W/C) (FIM): 7 Sit to Lying (QC): 6 Lying-Sitting on Side/Bed(QC): 6 Sit to Stand (QC): 6 Rollin Roll Left to Right (QC): 6 Chair/Lxj-st-Uoafu Xfer(QC): 6 Car Transfer (QC): 6 Does the Patient Walk: Yes Gait (FIM): 6 Gait distance (FIM): 3=150 ft Distance: 500' Walk 10 feet (QC): 6 Walk 10ft-Uneven Surface(QC): 5 Walk 50ft with 2 Turns (QC): 6 Walk 150 ft (QC): 6 Gait Level of Assist: 6 Gait Assistive Device: None, Cane Small Base Quad Stairs (FIM): 7 # of Steps: 12 1 Step (curb) (QC): 6 4 Steps (QC): 6 12 Steps (QC): 6 Stairs Level Of Assist: 7 Picking up an Object (QC): 6 PT Plan Problem List Problem List: Activity Tolerance, Functional Strength, Safety, Balance, Gait, Transfer Treatment/Plan Treatment Plan: Continue Plan of Care Treatment Plan: Bed Mobility, Concurrent Therapy, Education, Functional Activity Araceli, Functional Strength, Group Therapy, Gait, Safety, Therapeutic Exercise, Transfers Treatment Duration: Feb 03, 2018 Frequency: 6 times per week Estimated Hrs Per Day: 1.5 hours per day Patient and/or Family Agrees t: Yes Safety Risks/Education Patient Education: Gait Training, Transfer Techniques, Correct Positioning, Safety Issues Teaching Recipient: Patient Teaching Methods: Demonstration, Discussion Response to Teaching: Reinforcement Needed Time/GCodes Time In: 0900 Time Out: 1000 Total Billed Treatment Time: 60 Total Billed Treatment 1 visit GT 25' EX 20' NM 15' BETTY PARMAR PT Jan 29, 2018 10:02
--- NOTE | 2018-01-29 11:57 | Occupational Ther Daily Note ---
OT Current Status-Daily Note Subjective Pt alert, sitting in recliner. Pt agrees to therapy. No c/o pain. Mental Status/Objective Patient Orientation: Person, Place, Time, Situation Functional [place] Measure 0=Not Assessed/NA 4=Minimal Assistance 1=Total Assistance 5=Supervision or Setup 2=Maximal Assistance 6=Modified [place] 3=Moderate Assistance 7=Complete [place] ADL-Treatment Pt had taken shower before OT without assistance, per nrsg. Pt declined grooming. Functional [place] Measure 0=Not Assessed/NA 4=Minimal Assistance 1=Total Assistance 5=Supervision or Setup 2=Maximal Assistance 6=Modified [place] 3=Moderate Assistance 7=Complete IndependenceIRFPAI Quality Coding Scale 6 Independent with activity with or without an assistive device 5 Patient requires set up or clean up by helper. Patient completes activity by themselves 4 Supervision or touching assist (CGA). [place] provide cues , steadying assist 3 The helper provides less than half the effort to complete the activity 2 The helper provides more than half the effort to complete the activity 1 Dependent. The helper does all the effort to complete an activity 7 Patient refused to complete or attempt activity 9 The patient did not perform the activity before the current illness or injury 88 Not attempted due to Medical conditions or safety concerns Other Treatment Pt ambulates with cane slowly and at times uses other hand to counter balance. Arm bike completed 15 min at 25 jamison resistance to increase strength and activity tolerance for daily functional tasks. Visual perceptual tasks completed to work on hand eye coordination, multiple step directions, clear coat sprayer/ pinch strength. Pt took time to complete each task to sequence movements and place items in correct positions. Pt is progressing with ability to focus on task and complete without cues. After therapy pt sitting in recliner with call light/phone in reach. All needs met in room. OT Short Term Goals Short Term Goals Time Frame: Jan 27, 2018 Eating(FIM): 5 Grooming(FIM): 5 Bathing(FIM): 4 Upper Body Dressing(FIM): 5 Lower Body Dressing(FIM): 4 Toileting(FIM): 4 Transfers (B,C,W/C) (FIM): 5 (met) Toilet/Commode Transfer(FIM): 5 Tub Transfer(FIM): 5 Shower Transfer(FIM): 5 Comprehension(FIM): 6 Expression(FIM): 7 Social Interaction(FIM): 7 Problem Solving(FIM): 4 Memory(FIM): 3 Additional Short Term Goals: 1-Demonstrate ADL Tasks, 2-Verbalize Understanding , 3-ImproveStrength/Araceli 1=Demonstrate adherence to instructed precautions during ADL tasks. 2=Patient will verbalize/demonstrate understanding of assistive devices/ modifications for ADL. 3=Patient will improve strength/tolerance for activity to enable patient to perform ADL's. OT Group Home Goals Data Integration Developer Goals Time Frame: Feb 10, 2018 Eating (FIM): 7 Eating (QC): 6 Groomin Oral Hygiene (QC): 6 Bathing(FIM): 6 Shower/Bathe Self (QC): 6 Upper Body Dressing(FIM): 7 Upper Body Dressing (QC): 6 Lower Body Dressing(FIM): 6 Lower Body Dressing (QC): 6 On/Off Footwear (QC): 6 Toileting(FIM): 6 Toileting Hygiene (QC): 6 Transfers (B,C,W/C) (FIM): 6 Toilet/Commode Transfer(FIM): 6 Toilet/Commode Transfer (QC): 6 Tub Transfer(FIM): 6 Shower Transfer(FIM): 6 Comprehension(FIM): 7 Expression (FIM): 7 Social Interaction(FIM): 7 Problem Solving(FIM): 5 Memory(FIM): 4 Additional Goals: 1-Demonstrate ADL Tasks, 2-Verbalize Understanding, 3- ImproveStrength/Araceli 1=Demonstrate adherence to instructed precautions during ADL tasks. 2=Patient will verbalize/demonstrate understanding of assistive devices/ modifications for ADL. 3=Patient will improve strength/tolerance for activity to enable patient to perform ADL's. OT Education/Plan Discharge Recommendations Plan/Recommendations: Continue POC Treatment Plan/Plan of Care Patient would benefit from OT for education, treatment and training to promote independence in ADL's, mobility, safety and/or upper extremity function for ADL' s. Plan of Care: ADL Retraining, Functional Mobility, Group Exercise/Act as Ind, UE Funct Exercise/Act, UE Neuromus Re-Ed/Coord, Visual/Perceptual Retrain Treatment Duration: Feb 24, 2018 Frequency: At least 5 of 7 days/Wk (IRF) Estimated Hrs Per Day: 1.5 hours per day Agreement: Yes Rehab Potential: Good Time/GCodes Start Time: 10:25 Stop Time: 11:57 Total Time Billed (hr/min): 92 Billed Treatment Time 1 visit-NM 6 (92 min) SHAY DAVIDSON Jan 29, 2018 11:57
--- NOTE | 2018-01-29 12:49 | Speech Therapy Daily Note ---
Speech Daily Progress Note Subjective Date Seen by Provider: Jan 29, 2018 Time Seen by Provider: 00:15 Patient was sitting up in his chair and had just finished eating his lunch when I entered the room. Objective Patient completed recall of the days events with minimal cues. Assessment Assessment Current Status: Good Progress Treatment Plan Continue Plan of Care Communication Comprehension: 6 Expression: 7 Social Cognition Social Interaction: 7 Problem Solvin Memory: 2 Speech Short Term Goals Short Term Goals Short Term Goals Patient will complete auditory/visual linguistic/memory tasks at 80% with min/ mod assist. Patient will complete auditory/visual problem solving tasks at 80% with min/mod assist. Time Frame-ST week Comprehension: 6 Expression: 7 Social Interaction: 7 Problem Solvin Memory: 3 Speech Fdc Goals Lepidopterist Goals Patient will display functional cognition for safety and independence for return to home with min assist. Comprehension: 7 Expression: 7 Social Interaction: 7 Problem Solvin Memory: 4 Speech-Plan Patient/Family Goals Patient/Family Goals: Patient plans to return home later in the week where he will receive assistance from his family and significant other. Treatment Plan Speech Therapy Treatment Plan: Continue Plan of Care Patient discussed his plans for his return to home. Treatment Duration: Jan 25, 2018 Frequency: 5 times per week Estimated Hrs Per Day: .5 hour per day Rehab Potential: Good Barriers to Learning: Patient has mild memory deficits. Pt/Family Agrees to Plan: Yes Safety Risks/Education Teaching Recipient: Patient Teaching Methods: Discussion Response to Teaching: Verbalize Understanding Education Topics Provided: Safety procedures for insuring he has assistance for his daily needs. Time Speech Therapy Time In: 12:25 Speech Therapy Time Out: 12:40 Total Billed Time: 15 Billed Treatment Time 1AD[address] [facility] [facility] Jan 29, 2018 12:49
--- NOTE | 2018-01-29 14:23 | Physical Therapy Daily Note ---
PT Daily Note-Current Subjective Pt awake in room watching TV when PT arrived. Pt agreed to get up and walk for PT. Mental Status Patient Orientation: Normal For Age Transfers Functional [place] Measure 0=Not Assessed/NA 4=Minimal Assistance 1=Total Assistance 5=Supervision or Setup 2=Maximal Assistance 6=Modified [place] 3=Moderate Assistance 7=Complete IndependenceIRFPAI Quality Coding Scale 6 Independent with activity with or without an assistive device 5 Patient requires set up or clean up by helper. Patient completes activity by themselves 4 Supervision or touching assist (CGA). [place] provide cues , steadying assist 3 The helper provides less than half the effort to complete the activity 2 The helper provides more than half the effort to complete the activity 1 Dependent. The helper does all the effort to complete an activity 7 Patient refused to complete or attempt activity 9 The patient did not perform the activity before the current illness or injury 88 Not attempted due to Medical conditions or safety concerns Transfers (B, C, W/C) (FIM): 5 Sit to/from Stand: 5 Weight Bearing Right Lower Extremity: Right Full Weight Bearing Left Lower Extremity: Left Full Weight Bearing Gait Training Does the Patient Walk?: Yes Gait (FIM): 5 Distance (FIM): 3=150 ft Distance: >300' Gait Level of Assist: 5 Gait Persons Needed: 1 Gait Assistive Device: Cane Single Point Neuromuscular Pt practiced reaching across midline for objects and had to place object back in PTs hand. Pt worked on LOS and balance prior to returning to room. Assessment Pt was able to ambulate for 300' with a single point cane requiring SBA. Pt stated that this was the furthest he has ever walked since his injury. Pt showed no signs of fatigue but still demonstrates R side neglect during ambulation. PT Short Term Goals Short Term Goals Time Frame: Jan 20, 2018 Transfers (B,C,W/C) (FIM): 5 (met) Gait (FIM): 5 Distance (FIM): 3=984-21 ft Gait Distance Comment: 100' Gait Level of Assist: 5 Gait Assistive Device: Handheld Assist Wheelchair Distance: 50' PT Snf Goals Snf Goals PT Snf Goals Time Frame: Feb 03, 2018 Transfers (B,C,W/C) (FIM): 7 Sit to Lying (QC): 6 Lying-Sitting on Side/Bed(QC): 6 Sit to Stand (QC): 6 Rollin Roll Left to Right (QC): 6 Chair/Nzm-xu-Iduac Xfer(QC): 6 Car Transfer (QC): 6 Does the Patient Walk: Yes Gait (FIM): 6 Gait distance (FIM): 3=150 ft Distance: 500' Walk 10 feet (QC): 6 Walk 10ft-Uneven Surface(QC): 5 Walk 50ft with 2 Turns (QC): 6 Walk 150 ft (QC): 6 Gait Level of Assist: 6 Gait Assistive Device: None, Cane Small Base Quad Stairs (FIM): 7 # of Steps: 12 1 Step (curb) (QC): 6 4 Steps (QC): 6 12 Steps (QC): 6 Stairs Level Of Assist: 7 Picking up an Object (QC): 6 PT Plan Problem List Problem List: Activity Tolerance, Functional Strength, Safety, Balance, Gait, Transfer Treatment/Plan Treatment Plan: Continue Plan of Care Treatment Plan: Bed Mobility, Concurrent Therapy, Education, Functional Activity Araceli, Functional Strength, Group Therapy, Gait, Safety, Therapeutic Exercise, Transfers Treatment Duration: Feb 03, 2018 Frequency: 6 times per week Estimated Hrs Per Day: 1.5 hours per day Patient and/or Family Agrees t: Yes Time/GCodes Time In: 1245 Time Out: 1310 Total Billed Treatment Time: 25 Total Billed Treatment 1 Visit GT - 15' NM - 10' HENRY BOLIVAR PT Jan 29, 2018 14:23
--- NOTE | 2018-01-29 14:53 | PM & R (SOAP) Progress Note ---
Subjective This was a face to face visit with the patient. Date Seen by Provider: Jan 29, 2018 Time Seen by Provider: 14:30 Subjective/Events-last exam Patient was seen in his room this afternoon Patient progressing well with therapies.Patient SBA for transfers Objective Physician Exam Last Set of Vital Signs Vital Signs Date Time Temp Pulse Resp B/P (MAP) Pulse Ox O2 Delivery O2 Flow Rate FiO2 01/29/18 09:03 Room Air 01/29/18 05:53 97.9 60 18 123/66 (85) 95 Capillary Refill : I&O Intake and Output 01/29/18 00:00 Intake Total 2100 ml Balance 2100 ml Intake Oral 2100 ml # Voids 10 # Bowel Movements 2 General: Alert, Oriented X3, No Acute Distress HEENT: Mucous Memb Moist/[place], Other (RT SIDED VISUAL IMPAIRMENT) Neck: Supple, No JVD Heart: Regular Rate Abdomen: Normal Bowel Sounds, Soft, No Tenderness, Other ( DISTENDED) Extremities: No Edema Skin: Other (SMALL RASH OVER LEFT MID ABDOMEN) Neuro: Other (rT HIP FLEX 3+/5 rue 3+/5 lEFT ue 4+/5 lle 4/5) Psych/Mental Status: Mental Status NL Results Lab Data Laboratory Tests 01/26/18 15:40: Glucometer 102 01/26/18 19:23: Glucometer 135H 01/27/18 06:04: Glucometer 124H 01/27/18 10:01: White Blood Count 6.5, Red Blood Count 4.63, Hemoglobin 14.6, Hematocrit 44, Mean Corpuscular Volume 95, Mean Corpuscular Hemoglobin 32, Mean Corpuscular Hemoglobin Concent 33, Red Cell Distribution Width 13.1, Platelet Count 249, Mean Platelet Volume 10.0, Neutrophils (%) (Auto) 68, Lymphocytes (%) (Auto) 17 , Monocytes (%) (Auto) 8, Eosinophils (%) (Auto) 6, Basophils (%) (Auto) 1, Neutrophils # (Auto) 4.5, Lymphocytes # (Auto) 1.1, Monocytes # (Auto) 0.5, Eosinophils # (Auto) 0.4H, Basophils # (Auto) 0.1, Sodium Level 141, Potassium Level 4.1, Chloride Level 108H, Carbon Dioxide Level 22, Anion Gap 11, Blood Urea Nitrogen 10, Creatinine 0.84, Estimat Glomerular Filtration Rate > 60, BUN/ Creatinine Ratio 12, Glucose Level 155H, Calcium Level 9.3, Corrected Calcium 9.5, Total Bilirubin 0.4, Aspartate Amino Transf (AST/SGOT) 14, Alanine Aminotransferase (ALT/SGPT) 22, Alkaline Phosphatase 110, Total Protein 7.0, Albumin 3.7 01/27/18 15:54: Glucometer 97 01/27/18 21:31: Glucometer 109 01/28/18 06:13: Glucometer 108 01/28/18 11:03: Glucometer 161H 01/28/18 17:02: Glucometer 105 01/28/18 21:17: Glucometer 123H 01/29/18 05:48: Glucometer 102 01/29/18 11:37: Glucometer 86 Assessment/Plan Assessment and Plan Left occipital stroke with rt sided neglect and weakness and discoordination improving Non-small cell lung CA to have f/u with medonc in 1 week RT renal mass to have f/u as per above New onset DM controlled with med HTN controlled Tobaccoism abstaining Constipation improving with adjustment in meds Urticaria resolved HLP MAR[facility] on CPAP Plan Continue PT/OT Team Conference 01-31-18 with discharge scheduled for home 02-01-18 with family Co-Morbidities that are continuing to impact the rehab process: (include details ) SYDNEE GUAN MD Jan 29, 2018 14:53
[2018-01-29 17:06] VITALS: BP 125/79
[2018-01-29] MEDS: ALPRAZolam 0.25 MG (XANAX) TAB PO PRN (21:58)
[2018-01-30] MEDS: inSUlin ASPART (NovoLOG) 1 UNIT/0.01 ML (CHARGE PER UNIT) SC SCH ×4 (06:00→21:40)
[2018-01-30 06:10] VITALS: BP 120/67
[2018-01-30] MEDS: metFORMIN 500 MG (GLUCOPHAGE) TAB PO SCH ×2 (06:51→16:07)
--- NOTE | 2018-01-30 08:33 | Progress Note (SOAP) ---
Subjective Time Seen by a Provider: 08:31 Subjective/Events-last exam Spoke to patient today about diabetes, smoking, and drinking. I feel patient is not interested in stopping. Patient voices no complaints today Objective Exam Vital Signs Date Time Temp Pulse Resp B/P (MAP) Pulse Ox O2 Delivery O2 Flow Rate FiO2 01/30/18 06:10 98.0 64 18 120/67 (84) 94 NIV CPAP 01/29/18 21:09 Room Air 01/29/18 21:00 Room Air 01/29/18 17:06 98.2 67 18 125/79 (94) 96 Room Air 01/29/18 09:03 Room Air I & O 01/30/18 07:00 Intake Total 1400 ml Balance 1400 ml Capillary Refill : General Appearance: No Apparent Distress, WD/WN HEENT: Normal ENT Inspection Neck: Full Range of Motion, Normal Inspection Respiratory: Chest Non Tender, Lungs Clear, No Accessory Muscle Use, No Respiratory Distress Cardiovascular: Regular Rate, Rhythm, No Murmur Results Lab Laboratory Tests 01/29/18 11:37: Glucometer 86 01/29/18 15:57: Glucometer 92 01/29/18 21:47: Glucometer 131H 01/30/18 06:22: Glucometer 106 Assessment/Plan Assessment/Plan Assess & Plan/Chief Complaint CVA. Diabetes. Hypertension. Non-small cell lung cancer. Right renal mass. Tobaccoism. History of methadone use. Constipation. MAR[facility] on CPAP. Severe hypertensive crisis. Small castellanos aneurysm. . 01/16/18. CVA. Diabetes. Hypertension. Non-small cell lung cancer. GI upset. Severe hypertensive crisis. Small castellanos aneurysm. . 01/17/18. CVA. Diabetes is doing good. Hypertension. Non-small cell lung cancer. GI upset better. Severe hypertensive crisis history. Small castellanos aneurysm. . 01/18/18. CVA. Diabetes good. Hypertension good. Non-small cell lung cancer. History of severe hypertensive crisis. small castellanos aneurysm. Patient still needs better r gait. . 01/19/18. CVA. Diabetes good. Hypertension good. Non-small cell lung cancer. History of severe hypertensive crisis. Small castellanos aneurysm. Patient continues to improve. . 01/22/18. CVA. Patient to be put on oral medicine for diabetes. Hypertension good. Non-small cell lung cancer. History of severe hypertensive crisis. Small castellanos aneurysm. . 01/23/18. CVA. Diabetes. Patient on pills. Patient noncompliant with diet area Non-small cell lung cancer. history of severe hypertensive crisis. 's small castellanos aneurysm. . 01/24/18. CVA. Diabetes under good control. Non-small cell lung cancer. History of severe hypertensive crisis. Small castellanos aneurysm. . 01/29/18. CVA. Diabetes under good control. Malignant hypertension. Small castellanos aneurysm. Non-small cell lung cancer. Patient only using a cane. . 01/30/18. CVA. Diabetes under good control. Malignant hypertension. Non-small cell lung cancer. Patient noncompliant. Patient enjoys smoking too much. Patient enjoys eating too much. Clinical Quality Measures DVT/VTE Risk/Contraindication: Risk Factor Score Per Nursin RFS Level Per Nursing on Admit: 4+=Very High XAVIER KRISHNA DO Jan 30, 2018 08:33
[2018-01-30] MEDS: amLODIPine 5 MG (NORVASC) TAB PO SCH (08:55)
[2018-01-30] MEDS: CARBAM PEROX/GLYC/PROP 15 ML DROPS (DEBROX) EACH EAR SCH ×4 (08:55→21:40)
[2018-01-30] MEDS: ASPIRIN E.C. 81 MG (ECOTRIN) TAB PO SCH (08:55)
--- NOTE | 2018-01-30 09:01 | Speech Therapy Daily Note ---
Speech Daily Progress Note Subjective Date Seen by Provider: Jan 30, 2018 Time Seen by Provider: 00:30 Patient was pleasant and cooperative. Objective Patient completed memory tasks with 75% accuracy given moderate verbal cuing and /or repetitions. Patient was to complete a word chain which he had moderate difficulty completing. Assessment Assessment Current Status: Good Progress Treatment Plan Continue Plan of Care Communication Comprehension: 6 Expression: 7 Social Cognition Social Interaction: 7 Problem Solvin Memory: 5 Speech Short Term Goals Short Term Goals Short Term Goals Patient will complete auditory/visual linguistic/memory tasks at 80% with min/ mod assist. Patient will complete auditory/visual problem solving tasks at 80% with min/mod assist. Time Frame-ST week Comprehension: 6 Expression: 7 Social Interaction: 7 Problem Solvin Memory: 3 Speech Senior Living Goals Lead Enterprise Architect Goals Patient will display functional cognition for safety and independence for return to home with min assist. Comprehension: 7 Expression: 7 Social Interaction: 7 Problem Solvin Memory: 4 Speech-Plan Patient/Family Goals Patient/Family Goals: Patient plans to return home this week with his sister or significant other. Treatment Plan Speech Therapy Treatment Plan: Continue Plan of Care Patient is progressing with memory and problem solving. He stated he will begin chemo therapy for lung cancer upon his return home. Treatment Duration: Jan 25, 2018 Frequency: 5 times per week Estimated Hrs Per Day: .5 hour per day Rehab Potential: Good Barriers to Learning: Patient has memory deficits. Pt/Family Agrees to Plan: Yes Safety Risks/Education Teaching Recipient: Patient Teaching Methods: Discussion Response to Teaching: Verbalize Understanding Education Topics Provided: Memory strategies for him to continue when he returns home. Time Speech Therapy Time In: 08:30 Speech Therapy Time Out: 09:00 Total Billed Time: 30 Billed Treatment Time 1, [facility] Jan 30, 2018 09:01
--- NOTE | 2018-01-30 12:01 | PM & R (SOAP) Progress Note ---
Subjective This was a face to face visit with the patient. Date Seen by Provider: Jan 30, 2018 Time Seen by Provider: 07:35 Subjective/Events-last exam Patient was seen in his room this AM Continues to make improvement Patient SBA for transfers and SBA for gait with SPC Objective Physician Exam Last Set of Vital Signs Vital Signs Date Time Temp Pulse Resp B/P (MAP) Pulse Ox O2 Delivery O2 Flow Rate FiO2 01/30/18 10:03 Room Air 01/30/18 06:10 98.0 64 18 120/67 (84) 94 Capillary Refill : I&O Intake and Output 01/30/18 00:00 Intake Total 1650 ml Balance 1650 ml Intake Oral 1650 ml # Voids 6 # Bowel Movements 1 General: Alert, Oriented X3, No Acute Distress HEENT: Mucous Memb Moist/[place], Other (RT SIDED VISUAL IMPAIRMENT) Neck: Supple, No JVD Heart: Regular Rate Abdomen: Normal Bowel Sounds, Soft, No Tenderness, Other ( DISTENDED) Extremities: No Edema Skin: Other (SMALL RASH OVER LEFT MID ABDOMEN) Neuro: Other (rT HIP FLEX 3+/5 rue 3+/5 lEFT ue 4+/5 lle 4/5) Psych/Mental Status: Mental Status NL Results Lab Data Laboratory Tests 01/27/18 15:54: Glucometer 97 01/27/18 21:31: Glucometer 109 01/28/18 06:13: Glucometer 108 01/28/18 11:03: Glucometer 161H 01/28/18 17:02: Glucometer 105 01/28/18 21:17: Glucometer 123H 01/29/18 05:48: Glucometer 102 01/29/18 11:37: Glucometer 86 01/29/18 15:57: Glucometer 92 01/29/18 21:47: Glucometer 131H 01/30/18 06:22: Glucometer 106 01/30/18 10:33: Glucometer 85 Assessment/Plan Assessment and Plan Left occipital stroke with rt sided neglect and weakness and discoordination improving Non-small cell lung CA to have f/u on Monday the with medonc for PET scan Patients spouse informs me that metformin needs to be held for 2 days prior to procedure RT renal mass to have f/u as per above New onset DM switched to PO med HTN controlled Tobaccoism abstaining Constipation improved with meds Urticaria resolved HLP [facility] on CPAP Plan Continue PT/OT Team Conference tomorrow Discharge 02-01-18 with f/u with medonc on an outpatient basis 02-02-18 F/U re holding metformin Co-Morbidities that are continuing to impact the rehab process: (include details ) SYDNEE GUAN MD Jan 30, 2018 12:01
--- NOTE | 2018-01-30 12:53 | Physical Therapy Daily Note ---
PT Daily Note-Current Subjective Patient in bed pre tx, agrees to PT, no complaints of pain. Patient has had some discomfort in his right ankle/foot and he states it is improving. Appearance Patient sitting EOB post tx with nurse call, phone, tray, all needs met. Mental Status Patient Orientation: Person, Place, Situation Transfers Functional [place] Measure 0=Not Assessed/NA 4=Minimal Assistance 1=Total Assistance 5=Supervision or Setup 2=Maximal Assistance 6=Modified [place] 3=Moderate Assistance 7=Complete [place] IRFPAI Quality Coding Scale 6 Independent with activity with or without an assistive device 5 Patient requires set up or clean up by helper. Patient completes activity by themselves 4 Supervision or touching assist (CGA). [place] provide cues , steadying assist 3 The helper provides less than half the effort to complete the activity 2 The helper provides more than half the effort to complete the activity 1 Dependent. The helper does all the effort to complete an activity 7 Patient refused to complete or attempt activity 9 The patient did not perform the activity before the current illness or injury 88 Not attempted due to Medical conditions or safety concerns Transfers (B, C, W/C) (FIM): 6 Scootin Rollin Roll Left to Right (QC): 6 Supine to/from Sit: 7 Sit to/from Stand: 6 Sit to Lying (QC): 6 Sit to Stand (QC): 6 Chair/Mwf-rc-Htmwu Xfer(QC): 6 Bed to/from Chair: 6 Car Transfer (QC): 6 Patient is independent with bed mobility, sit <-> stand mod I, transfers with mod I, car transfer mod I. Weight Bearing Right Lower Extremity: Right Full Weight Bearing Left Lower Extremity: Left Full Weight Bearing Gait Training Gait (FIM): 6 Distance: 250'x4 Walk 10 feet (QC): 6 Walk 50 ft with 2 Turns(QC): 6 Walk 150 ft (QC): 6 Walking 10ft/uneven surface-QC: 6 Gait Level of Assist: 6 Gait Assistive Device: Cane Single Point Patient can ambulate 250' with a single point cane with mod I (including 50' with at least 2 turns of 90 degrees and 10' over an uneven surface). He is steady with turning now, but occasionally will bump into objects on the right side but no LOB. Wheelchair Training Does the Pt Use a Wheelchair?: No Stair Training Stair Training: Handrails/: 2 handrails Stairs (FIM): 5 #of Steps: 12 1 Step (curb) (QC): 4 4 Steps (QC): 4 12 Steps (QC): 4 Stairs: Pattern: Step to Level of Assist: 5 Patient can go up and down 12 steps using 2 handrails with SBA. He does need cues for foot placement. Exercises Standing: Hip Abduction, Hamstring curls, Heel/toe raises, Marching, Mini squats, Step-ups Standing Reps: 15 NuStep Minutes: 15 NuStep Workload: 5 Treatments bed mobility and transfers, ambulation, stair training, functional strengthening Assessment Current Status: Fair Progress Patient was made independent in his room. He scored 25/28 on the [place] using a single point cane. PT Short Term Goals Short Term Goals Time Frame: Jan 20, 2018 Transfers (B,C,W/C) (FIM): 5 (met) Gait (FIM): 5 Distance (FIM): 2=035-35 ft Gait Distance Comment: 100' Gait Level of Assist: 5 Gait Assistive Device: Handheld Assist Wheelchair Distance: 50' PT Web Site Developer Goals Web Site Developer Goals PT Intermediate Goals Time Frame: Feb 03, 2018 Transfers (B,C,W/C) (FIM): 7 Sit to Lying (QC): 6 (met) Lying-Sitting on Side/Bed(QC): 6 (met) Sit to Stand (QC): 6 (met) Rollin (met) Roll Left to Right (QC): 6 (met) Chair/Bea-tq-Tukpd Xfer(QC): 6 (met) Car Transfer (QC): 6 (met) Does the Patient Walk: Yes Gait (FIM): 6 (met) Gait distance (FIM): 3=150 ft Distance: 500' Walk 10 feet (QC): 6 (met) Walk 10ft-Uneven Surface(QC): 5 (met) Walk 50ft with 2 Turns (QC): 6 (met) Walk 150 ft (QC): 6 (met) Gait Level of Assist: 6 (met) Gait Assistive Device: None, Cane Small Base Quad Stairs (FIM): 7 # of Steps: 12 1 Step (curb) (QC): 6 4 Steps (QC): 6 12 Steps (QC): 6 Stairs Level Of Assist: 7 Picking up an Object (QC): 6 PT Plan Problem List Problem List: Activity Tolerance, Functional Strength, Safety, Balance, Gait, Transfer Treatment/Plan Treatment Plan: Continue Plan of Care Treatment Plan: Bed Mobility, Concurrent Therapy, Education, Functional Activity Araceli, Functional Strength, Group Therapy, Gait, Safety, Therapeutic Exercise, Transfers Treatment Duration: Feb 03, 2018 Frequency: 6 times per week Estimated Hrs Per Day: 1.5 hours per day Patient and/or Family Agrees t: Yes Safety Risks/Education Patient Education: Gait Training, Transfer Techniques, Steps, Correct Positioning, Safety Issues Teaching Recipient: Patient Teaching Methods: Demonstration, Discussion Response to Teaching: Reinforcement Needed Time/GCodes Time In: 1030 Time Out: 1145 Total Billed Treatment Time: 75 Total Billed Treatment 1 visit EX 30' GT 30' FA 15' BETTY PARMAR PT Jan 30, 2018 12:53
--- NOTE | 2018-01-30 13:06 | Occupational Ther Daily Note ---
OT Current Status-Daily Note Subjective Pt agrees to therapy, has no c/o pain. Mental Status/Objective Functional [place] Measure 0=Not Assessed/NA 4=Minimal Assistance 1=Total Assistance 5=Supervision or Setup 2=Maximal Assistance 6=Modified [place] 3=Moderate Assistance 7=Complete [place] ADL-Treatment Pt retrieved clothing and ambulated to restroom. Toilet transfer and toileting completed with modified independence. Transfer to walk in shower with supervision for safety. Pt completed bathing using hand held shower. Pt completed shower while standing, so required supervision for balance and safety. Able to wash/dry all areas. Don pullover shirt with modified independence. Pt donned shorts while standing, required SBA for safety. Don socks with modified independence while seated EOB. Grooming tasks completed standing at sink. Pt brushed teeth with modified independence. Functional [place] Measure 0=Not Assessed/NA 4=Minimal Assistance 1=Total Assistance 5=Supervision or Setup 2=Maximal Assistance 6=Modified [place] 3=Moderate Assistance 7=Complete [place] IRFPAI Quality Coding Scale 6 Independent with activity with or without an assistive device 5 Patient requires set up or clean up by helper. Patient completes activity by themselves 4 Supervision or touching assist (CGA). [place] provide cues , steadying assist 3 The helper provides less than half the effort to complete the activity 2 The helper provides more than half the effort to complete the activity 1 Dependent. The helper does all the effort to complete an activity 7 Patient refused to complete or attempt activity 9 The patient did not perform the activity before the current illness or injury 88 Not attempted due to Medical conditions or safety concerns Grooming (FIM): 6 Oral Hygiene (QC): 6 Bathing (FIM): 5 Shower/Bathe Self (QC): 4 Upper Body (FIM): 6 Upper Body Dressing (QC): 6 Lower Body Dressing (FIM): 5 Lower Body Dressing (QC): 5 On/Off Footwear (QC): 6 Toileting (FIM): 6 Toileting Hygiene (QC): 6 Toilet/Commode Transfer (FIM): 6 Toilet Transfer (QC): 6 Shower Transfer(FIM): 5 Other Treatment Gait to therapy gym with cane, no LOB noted, but cues for safety. Arm bike [id number] to increase overall strength and activity tolerance for functional tasks. Pt completed activity with moderate resistance and steady pace. No rest breaks needed. Pt completed fine motor task with nuts and bolts to increase bilateral coordination/manipulation skills needed for ADLs. Pt required increased time for task, but did not need assist for completion. Pt returned to room, sitting in chair with needs met after session. OT Short Term Goals Short Term Goals Time Frame: Jan 27, 2018 Eating(FIM): 5 Grooming(FIM): 5 Bathing(FIM): 4 Upper Body Dressing(FIM): 5 Lower Body Dressing(FIM): 4 Toileting(FIM): 4 Transfers (B,C,W/C) (FIM): 5 (met) Toilet/Commode Transfer(FIM): 5 Tub Transfer(FIM): 5 Shower Transfer(FIM): 5 Comprehension(FIM): 6 Expression(FIM): 7 Social Interaction(FIM): 7 Problem Solving(FIM): 4 Memory(FIM): 3 Additional Short Term Goals: 1-Demonstrate ADL Tasks, 2-Verbalize Understanding , 3-ImproveStrength/Araceli 1=Demonstrate adherence to instructed precautions during ADL tasks. 2=Patient will verbalize/demonstrate understanding of assistive devices/ modifications for ADL. 3=Patient will improve strength/tolerance for activity to enable patient to perform ADL's. OT Content Assistant Goals Content Assistant Goals Time Frame: Feb 10, 2018 Eating (FIM): 7 Eating (QC): 6 Groomin Oral Hygiene (QC): 6 Bathing(FIM): 6 Shower/Bathe Self (QC): 6 Upper Body Dressing(FIM): 7 Upper Body Dressing (QC): 6 Lower Body Dressing(FIM): 6 Lower Body Dressing (QC): 6 On/Off Footwear (QC): 6 Toileting(FIM): 6 Toileting Hygiene (QC): 6 Transfers (B,C,W/C) (FIM): 6 Toilet/Commode Transfer(FIM): 6 Toilet/Commode Transfer (QC): 6 Tub Transfer(FIM): 6 Shower Transfer(FIM): 6 Comprehension(FIM): 7 Expression (FIM): 7 Social Interaction(FIM): 7 Problem Solving(FIM): 5 Memory(FIM): 4 Additional Goals: 1-Demonstrate ADL Tasks, 2-Verbalize Understanding, 3- ImproveStrength/Araceli 1=Demonstrate adherence to instructed precautions during ADL tasks. 2=Patient will verbalize/demonstrate understanding of assistive devices/ modifications for ADL. 3=Patient will improve strength/tolerance for activity to enable patient to perform ADL's. OT Education/Plan Discharge Recommendations Plan/Recommendations: Continue POC Treatment Plan/Plan of Care Patient would benefit from OT for education, treatment and training to promote independence in ADL's, mobility, safety and/or upper extremity function for ADL' s. Plan of Care: ADL Retraining, Functional Mobility, Group Exercise/Act as Ind, UE Funct Exercise/Act, UE Neuromus Re-Ed/Coord, Visual/Perceptual Retrain Treatment Duration: Feb 24, 2018 Frequency: At least 5 of 7 days/Wk (IRF) Estimated Hrs Per Day: 1.5 hours per day Agreement: Yes Rehab Potential: Good Time/GCodes Start Time: 09:15 Stop Time: 10:30 Total Time Billed (hr/min): 75 Billed Treatment Time 1 visit, ADLx3(45minutes), EXx2(30minutes) KEN ESPINOZA OT Jan 30, 2018 13:06
[2018-01-30 18:00] VITALS: BP 148/80
[2018-01-30] MEDS ORDERED: ACET-77 PO (19:03)
[2018-01-30] MEDS ORDERED: ATOR80TA76 PO (19:03)
[2018-01-30] MEDS ORDERED: ALPR0.254 PO (19:03)
[2018-01-30] MEDS ORDERED: AMLO5TAB7 PO (19:03)
[2018-01-30] MEDS ORDERED: ASPI-983 PO (19:03)
[2018-01-30] MEDS ORDERED: INSU100V16 SC (19:04)
[2018-01-31] MEDS: inSUlin ASPART (NovoLOG) 1 UNIT/0.01 ML (CHARGE PER UNIT) SC SCH (06:00)
[2018-01-31 06:30] VITALS: BP 152/77
[2018-01-31] MEDS: metFORMIN 500 MG (GLUCOPHAGE) TAB PO SCH (07:00)
--- NOTE | 2018-01-31 08:25 | Progress Note (SOAP) ---
Subjective Time Seen by a Provider: 08:23 Subjective/Events-last exam Talk with patient about CAT scan and metformin. Patient be discharged today. Patient walking better. Objective Exam Vital Signs Date Time Temp Pulse Resp B/P (MAP) Pulse Ox O2 Delivery O2 Flow Rate FiO2 01/31/18 06:30 97.4 69 20 152/77 (102) 95 NIV CPAP 01/30/18 21:30 NIV CPAP 01/30/18 18:00 97.0 70 18 148/80 (102) 93 Room Air 01/30/18 10:03 Room Air 01/30/18 09:13 Room Air I & O 01/31/18 07:00 Intake Total 1282 ml Balance 1282 ml Capillary Refill : General Appearance: No Apparent Distress, WD/WN HEENT: Normal ENT Inspection Neck: Full Range of Motion, Normal Inspection Respiratory: No Accessory Muscle Use, No Respiratory Distress Results Lab Laboratory Tests 01/30/18 10:33: Glucometer 85 01/30/18 16:21: Glucometer 99 01/30/18 21:35: Glucometer 97 01/31/18 06:42: Glucometer 93 Assessment/Plan Assessment/Plan Assess & Plan/Chief Complaint CVA. Diabetes. Hypertension. Non-small cell lung cancer. Right renal mass. Tobaccoism. History of methadone use. Constipation. MARION on CPAP. Severe hypertensive crisis. Small castellanos aneurysm. . 01/16/18. CVA. Diabetes. Hypertension. Non-small cell lung cancer. GI upset. Severe hypertensive crisis. Small castellanos aneurysm. . 01/17/18. CVA. Diabetes is doing good. Hypertension. Non-small cell lung cancer. GI upset better. Severe hypertensive crisis history. Small castellanos aneurysm. . 01/18/18. CVA. Diabetes good. Hypertension good. Non-small cell lung cancer. History of severe hypertensive crisis. small castellanos aneurysm. Patient still needs better r gait. . 01/19/18. CVA. Diabetes good. Hypertension good. Non-small cell lung cancer. History of severe hypertensive crisis. Small castellanos aneurysm. Patient continues to improve. . 01/22/18. CVA. Patient to be put on oral medicine for diabetes. Hypertension good. Non-small cell lung cancer. History of severe hypertensive crisis. Small castellanos aneurysm. . 01/23/18. CVA. Diabetes. Patient on pills. Patient noncompliant with diet area Non-small cell lung cancer. history of severe hypertensive crisis. 's small castellanos aneurysm. . 01/24/18. CVA. Diabetes under good control. Non-small cell lung cancer. History of severe hypertensive crisis. Small castellanos aneurysm. . 01/29/18. CVA. Diabetes under good control. Malignant hypertension. Small castellanos aneurysm. Non-small cell lung cancer. Patient only using a cane. . 01/30/18. CVA. Diabetes under good control. Malignant hypertension. Non-small cell lung cancer. Patient noncompliant. Patient enjoys smoking too much. Patient enjoys eating too much.. . 01/31/18. CVA. Diabetes. Malignant hypertension. Non-small cell lung cancer area Patient to be discharged today. Patient have CAT scan on Monday. Talked over the diabetes Clinical Quality Measures DVT/VTE Risk/Contraindication: Risk Factor Score Per Nursin RFS Level Per Nursing on Admit: 4+=Very High XAVIER KRISHNA DO Jan 31, 2018 08:25
--- NOTE | 2018-01-31 08:37 | PM & R (SOAP) Progress Note ---
Subjective This was a face to face visit with the patient. Date Seen by Provider: Jan 31, 2018 Time Seen by Provider: 07:30 Subjective/Events-last exam Patient was seen in his room this AM [place] for discharge Metformin placed on hold due to pending PET scan at outside facility on 02-02-18.Placed on Sliding scale insulin regimen til Metformin can be resumed Patient Modified Independent for transfers Objective Physician Exam Last Set of Vital Signs Vital Signs Date Time Temp Pulse Resp B/P (MAP) Pulse Ox O2 Delivery O2 Flow Rate FiO2 01/31/18 06:30 97.4 69 20 152/77 (102) 95 NIV CPAP Capillary Refill : I&O Intake and Output 01/31/18 00:00 Intake Total 1360 ml Balance 1360 ml Intake Oral 1360 ml # Voids 7 # Bowel Movements 1 General: Alert, Oriented X3, No Acute Distress HEENT: Mucous Memb Moist/[place], Other (RT SIDED VISUAL IMPAIRMENT) Neck: Supple, No JVD Heart: Regular Rate Abdomen: Normal Bowel Sounds, Soft, No Tenderness, Other ( DISTENDED) Extremities: No Edema Skin: Other (SMALL RASH OVER LEFT MID ABDOMEN) Neuro: Other (rT HIP FLEX 3+/5 rue 3+/5 lEFT ue 4+/5 lle 4/5) Psych/Mental Status: Mental Status NL Results Lab Data Laboratory Tests 01/28/18 11:03: Glucometer 161H 01/28/18 17:02: Glucometer 105 01/28/18 21:17: Glucometer 123H 01/29/18 05:48: Glucometer 102 01/29/18 11:37: Glucometer 86 01/29/18 15:57: Glucometer 92 01/29/18 21:47: Glucometer 131H 01/30/18 06:22: Glucometer 106 01/30/18 10:33: Glucometer 85 01/30/18 16:21: Glucometer 99 01/30/18 21:35: Glucometer 97 01/31/18 06:42: Glucometer 93 Assessment/Plan Assessment and Plan Home today with spouse F/u with PCP and medonc in [place] See orders Co-Morbidities that are continuing to impact the rehab process: (include details ) SYDNEE GUAN MD Jan 31, 2018 08:37
--- NOTE | 2018-01-31 08:45 | Therapy Team Discharge Summary ---
Therapy Discharge Summary Discharge Recommendations Date of Discharge Therapy D/C Recommendations: Occupational Therapy Home Care, Occupational Therapy Outpatient Physical Therapy Patient came to rehab post CVA. Upon evaluation patient performed bed mobility and transfers with min assist, ambulated 30' with min assist with DIRECTOR OF PUBLIC HEALTH, and went up and down 4 steps with mod assist. Patient has been performing bed mobility and transfer training, balance and endurance training, functional strengthening , stair training, gait training, and education. Patient has made good progress and has met all of his fdc goals except for stairs. Now, patient is independent with bed mobility, sit <-> stand mod I, transfers with mod I, car transfer mod I, ambulate 250' with a single point cane with mod I (including 50 ' with at least 2 turns of 90 degrees and 10' over an uneven surface), and can go up and down 12 steps using 2 handrails with SBA. Patient is discharging from this facility today and will be discharged from PT at this time. Occupational Therapy Decreased Activ Tolerance, Decreased Safety Aware, Decreased UE Strength, Impaired Coordination, Impaired Funct Balance, Impaired I ADL's, Impaired Self- Care Skills, Visual-Perceptual Deficit PT Fdc Goals Fdc Goals PT Fdc Goals Time Frame: Feb 03, 2018 Transfers (B,C,W/C) (FIM): 7 Roll Left to Right (QC): 6 (met) Sit to Lying (QC): 6 (met) Lying-Sitting on Side/Bed(QC): 6 (met) Sit to Stand (QC): 6 (met) Chair/Ncz-tk-Tgued Xfer(QC): 6 (met) Car Transfer (QC): 6 (met) Does the Patient Walk: Yes Gait (FIM): 6 (met) Gait distance (FIM): 3=150 ft Distance: 500' Walk 10 feet (QC): 6 (met) Walk 10ft-Uneven Surface(QC): 5 (met) Walk 50ft with 2 Turns (QC): 6 (met) Walk 150 ft (QC): 6 (met) Gait Level of Assist: 6 (met) Gait Assistive Device: None, Cane Small Base Quad Stairs (FIM): 7 # of Steps: 12 1 Step (curb) (QC): 6 4 Steps (QC): 6 12 Steps (QC): 6 Stairs Level Of Assist: 7 Picking up an Object (QC): 6 OT Fdc Goals [place] Picker Goals Time Frame: Feb 10, 2018 Eating (FIM): 7 Eating (QC): 6 Oral Hygiene (QC): 6 Grooming(FIM): 7 Bathing(FIM): 6 Shower/Bathe Self (QC): 6 Upper Body Dressing(FIM): 7 Upper Body Dressing (QC): 6 Lower Body Dressing(FIM): 6 Lower Body Dressing (QC): 6 On/Off Footwear (QC): 6 Toileting(FIM): 6 Toileting Hygiene (QC): 6 Transfers (B,C,W/C) (FIM): 6 Toilet/Commode Transfer(FIM): 6 Toilet/Commode Transfer (QC): 6 Tub Transfer(FIM): 6 Shower Transfer(FIM): 6 Comprehension(FIM): 7 Expression (FIM): 7 Social Interaction(FIM): 7 Problem Solving(FIM): 5 Memory(FIM): 4 Additional Goals: 1-Demonstrate ADL Tasks, 2-Verbalize Understanding, 3- ImproveStrength/Araceli 1=Demonstrate adherence to instructed precautions during ADL tasks. 2=Patient will verbalize/demonstrate understanding of assistive devices/ modifications for ADL. 3=Patient will improve strength/tolerance for activity to enable patient to perform ADL's. Speech [place] Picker Goals Fdc Goals Patient will display functional cognition for safety and independence for return to home with min assist. Comprehension: 7 Expression: 7 Social Interaction: 7 Problem Solvin Memory: 4 BETTY PARMAR PT Jan 31, 2018 08:45
[2018-01-31 09:11] VITALS: BP 136/72
[2018-01-31] MEDS: amLODIPine 5 MG (NORVASC) TAB PO SCH (09:15)
[2018-01-31] MEDS: ASPIRIN E.C. 81 MG (ECOTRIN) TAB PO SCH (09:15)
[2018-01-31] MEDS: CARBAM PEROX/GLYC/PROP 15 ML DROPS (DEBROX) EACH EAR SCH (10:54)
[2018-01-31 11:30] VITALS: BP 136/72
--- NOTE | 2018-01-31 15:47 | Therapy Team Discharge Summary ---
Therapy Discharge Summary Discharge Recommendations Date of Discharge 01/31/2018 Therapy D/C Recommendations: Home w/ Family Support, Occupational Therapy Home Care, Occupational Therapy Outpatient Occupational Therapy Decreased Activ Tolerance, Decreased Safety Aware, Decreased UE Strength, Impaired Coordination, Impaired Funct Balance, Impaired I ADL's, Impaired Self- Care Skills, Visual-Perceptual Deficit Speech-Language Pathology Patient was seen on the rehab unit due to recent CVA. Patient was initially moderate with memory and problem solving with mod to max verbal cues. Patient progressed well during his rehab stay. He was able to demonstrate improved memory and problem solving related to his daily needs with 75-80% accuracy with decreased verbal cues. Patient returned to his home with his sister and other family members from the rehab unit today. PT Prison Goals Prison Goals PT Quality Assurance Coach Goals Time Frame: Feb 03, 2018 Transfers (B,C,W/C) (FIM): 7 Roll Left to Right (QC): 6 (met) Sit to Lying (QC): 6 (met) Lying-Sitting on Side/Bed(QC): 6 (met) Sit to Stand (QC): 6 (met) Chair/Iej-by-Wpjhv Xfer(QC): 6 (met) Car Transfer (QC): 6 (met) Does the Patient Walk: Yes Gait (FIM): 6 (met) Gait distance (FIM): 3=150 ft Distance: 500' Walk 10 feet (QC): 6 (met) Walk 10ft-Uneven Surface(QC): 5 (met) Walk 50ft with 2 Turns (QC): 6 (met) Walk 150 ft (QC): 6 (met) Gait Level of Assist: 6 (met) Gait Assistive Device: None, Cane Small Base Quad Stairs (FIM): 7 # of Steps: 12 1 Step (curb) (QC): 6 4 Steps (QC): 6 12 Steps (QC): 6 Stairs Level Of Assist: 7 Picking up an Object (QC): 6 OT Prison Goals Prison Goals Time Frame: Feb 10, 2018 Eating (FIM): 7 Eating (QC): 6 Oral Hygiene (QC): 6 Grooming(FIM): 7 Bathing(FIM): 6 Shower/Bathe Self (QC): 6 Upper Body Dressing(FIM): 7 Upper Body Dressing (QC): 6 Lower Body Dressing(FIM): 6 Lower Body Dressing (QC): 6 On/Off Footwear (QC): 6 Toileting(FIM): 6 Toileting Hygiene (QC): 6 Transfers (B,C,W/C) (FIM): 6 Toilet/Commode Transfer(FIM): 6 Toilet/Commode Transfer (QC): 6 Tub Transfer(FIM): 6 Shower Transfer(FIM): 6 Comprehension(FIM): 7 Expression (FIM): 7 Social Interaction(FIM): 7 Problem Solving(FIM): 5 Memory(FIM): 4 Additional Goals: 1-Demonstrate ADL Tasks, 2-Verbalize Understanding, 3- ImproveStrength/Araceli 1=Demonstrate adherence to instructed precautions during ADL tasks. 2=Patient will verbalize/demonstrate understanding of assistive devices/ modifications for ADL. 3=Patient will improve strength/tolerance for activity to enable patient to perform ADL's. Speech Prison Goals Quality Assurance Coach Goals Patient will display functional cognition for safety and independence for return to home with min assist. Goal met 01/31/2018. Comprehension: 7 Expression: 7 Social Interaction: 7 Problem Solvin Memory: 4 FLORA ROBERTSON Jan 31, 2018 15:47
--- NOTE | 2018-02-01 15:45 | Therapy Team Discharge Summary ---
Therapy Discharge Summary Discharge Recommendations Date of Discharge Jan 31, 2018 at 11:30 Therapy D/C Recommendations: Home w/ Family Support, Occupational Therapy Home Care, Occupational Therapy Outpatient Occupational Therapy Pt was seen for skilled OT to increase his independence in basic self care , after a CVA. On admission he needed min assist with upper body dressing and toilet/shower transfers, mod assist with eating, grooming and max assist with bathing and lower body dressing. By discharge he had progressed to setup/ supervision for bathing, shower transfer and lower body dressing and modified independent with all other ADLs. See tx plan for goals met. Discharged to home with family support. Decreased Activ Tolerance, Decreased Safety Aware, Decreased UE Strength, Impaired Coordination, Impaired Funct Balance, Impaired I ADL's, Impaired Self- Care Skills, Visual-Perceptual Deficit PT Director Of Cardiac Rehabilitation Goals Director Of Cardiac Rehabilitation Goals PT Jail Goals Time Frame: Feb 03, 2018 Transfers (B,C,W/C) (FIM): 7 Roll Left to Right (QC): 6 (met) Sit to Lying (QC): 6 (met) Lying-Sitting on Side/Bed(QC): 6 (met) Sit to Stand (QC): 6 (met) Chair/Awe-ov-Jveeo Xfer(QC): 6 (met) Car Transfer (QC): 6 (met) Does the Patient Walk: Yes Gait (FIM): 6 (met) Gait distance (FIM): 3=150 ft Distance: 500' Walk 10 feet (QC): 6 (met) Walk 10ft-Uneven Surface(QC): 5 (met) Walk 50ft with 2 Turns (QC): 6 (met) Walk 150 ft (QC): 6 (met) Gait Level of Assist: 6 (met) Gait Assistive Device: None, Cane Small Base Quad Stairs (FIM): 7 # of Steps: 12 1 Step (curb) (QC): 6 4 Steps (QC): 6 12 Steps (QC): 6 Stairs Level Of Assist: 7 Picking up an Object (QC): 6 OT Jail Goals Director Of Cardiac Rehabilitation Goals Time Frame: Feb 10, 2018 Eating (FIM): 7 Eating (QC): 6 Oral Hygiene (QC): 6 (met) Grooming(FIM): 7 (met) Bathing(FIM): 6 (not met) Shower/Bathe Self (QC): 6 (not met) Upper Body Dressing(FIM): 7 (not met) Upper Body Dressing (QC): 6 (met) Lower Body Dressing(FIM): 6 (not met) Lower Body Dressing (QC): 6 (not met) On/Off Footwear (QC): 6 (not met) Toileting(FIM): 6 (met) Toileting Hygiene (QC): 6 (met) Transfers (B,C,W/C) (FIM): 6 Toilet/Commode Transfer(FIM): 6 (met) Toilet/Commode Transfer (QC): 6 (met) Tub Transfer(FIM): 6 Shower Transfer(FIM): 6 (not met) Comprehension(FIM): 7 Expression (FIM): 7 Social Interaction(FIM): 7 Problem Solving(FIM): 5 Memory(FIM): 4 Additional Goals: 1-Demonstrate ADL Tasks, 2-Verbalize Understanding, 3- ImproveStrength/Araceli 1=Demonstrate adherence to instructed precautions during ADL tasks. 2=Patient will verbalize/demonstrate understanding of assistive devices/ modifications for ADL. 3=Patient will improve strength/tolerance for activity to enable patient to perform ADL's. Speech Director Of Cardiac Rehabilitation Goals Jail Goals Patient will display functional cognition for safety and independence for return to home with min assist. Goal met 01/31/2018. Comprehension: 7 Expression: 7 Social Interaction: 7 Problem Solvin Memory: 4 MICHELLE MORRIS OT Feb 01, 2018 15:45
== END 2018-01-31 11:30 | disposition home or self-care (01) | DRG 57 ==
PROVIDERS: ADMIT Physical Medicine & Rehabilitation; ATTEND Physical Medicine & Rehabilitation
DX: I69.398 Other sequelae of cerebral infarction (principal); R26.0 Ataxic gait; H53.459 Other localized visual field defect, unspecified eye; R41.4 Neurologic neglect syndrome; I67.1 Cerebral aneurysm, nonruptured; C34.91 Malignant neoplasm of unspecified part of right bronchus or lung; C79.9 Secondary malignant neoplasm of unspecified site; N28.89 Other specified disorders of kidney and ureter; L50.0 Allergic urticaria; E11.65 Type 2 diabetes mellitus with hyperglycemia; I10 Essential (primary) hypertension; F17.210 Nicotine dependence, cigarettes, uncomplicated; K59.01 Slow transit constipation; E78.5 Hyperlipidemia, unspecified; G47.33 Obstructive sleep apnea (adult) (pediatric)
CPT/HCPCS: 36415; 80053; 82962; 83036; 84484; 85007; 85025; 85027; 93005; 94640; 94760